=== PATIENT | female | born 1970 | race Caucasian/White ===

== ENCOUNTER 2022-02-17 07:27 | Inpatient (IN) ==
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
[~2022-02-17 07:27] MED LIST: ACETAMINOPHEN 500 MG TAB PO SCH; CeleBREX 200 MG CAP PO SCH; GABAPENTIN 900 MG DOSE PO SCH; LR 15ML/HR IV SCH; ceFAZolin 1000MG 1,000 MG/7.5 ML SYR IV SCH
[2022-02-17] MEDS ORDERED: MIDAZOLAM HCL 1 MG/ML 2ML VIAL ONE (08:48)
[2022-02-17] MEDS ORDERED: LIDOCAINE 2% MPF LOCAL 5 ML VIAL INFIL ONE (08:49)
[2022-02-17] MEDS ORDERED: ONDANSETRON INJ 2 MG/ML 2 ML VIAL ONE (08:49)
[2022-02-17] MEDS ORDERED: PROPOFOL IV EMULSION 10 MG/ML 20 ML VIAL IV ONE (08:49)
[2022-02-17] MEDS ORDERED: ROCURONIUM BROMIDE 10 MG/ML 5 ML VIAL IV ONE (08:49)
[2022-02-17] MEDS ORDERED: GLYCOPYRROLATE 0.2 MG/ML VIAL ONE (08:49)
[2022-02-17] MEDS ORDERED: fentaNYL citrate 100 MCG/2 ML VIAL ONE (08:49)
[2022-02-17] MEDS ORDERED: DEXAMETHASONE SOD INJ 4 MG/ML VIAL ONE (08:49)
[2022-02-17] MEDS ORDERED: NEOSTIGMINE METHYLSULFATE 1 MG/ML 10ML VIAL ONE (08:49)
--- NOTE | 2022-02-17 08:57 | History & Physical Bridge Note ---
Date of Service February 17, 2022 History & Physical Bridge Note I have examined the patient, reviewed the History & Physical and in the interval since the performance of the History & Physical I have noted the following changes of clinical significance: no changes noted
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
[2022-02-17] MEDS ORDERED: ceFAZolin 330 MG/ML 1 GM VIAL ONE (09:20)
[2022-02-17] MEDS ORDERED: BUPIVACAINE/EPINEPHRINE 0.25% 1:200,000 30 ML VIAL ONE (09:20)
[2022-02-17] MEDS ORDERED: PHENYLEPHRINE 100MCG/ML 5ML SYR IV PRN (09:28)
[2022-02-17] MEDS ORDERED: MEPERIDINE HCL 25 MG/ML CARP/VIAL IV PRN (09:28)
[2022-02-17] MEDS ORDERED: ONDANSETRON INJ 2 MG/ML 2 ML VIAL IV PRN ×2 (09:28→14:32)
[2022-02-17] MEDS ORDERED: ATROPINE SULFATE 0.1 MG/ML 10ML SYR IV PRN (09:28)
[2022-02-17] MEDS ORDERED: LABETALOL HCL IV 5 MG/ML 20ML IV PRN (09:28)
[2022-02-17] MEDS ORDERED: ePHEDrine sulfate 50 MG/ML AMP IV PRN (09:28)
[2022-02-17] MEDS ORDERED: PHENYLEPHRINE 100MCG/ML 5ML SYR ONE (09:59)
[2022-02-17] MEDS ORDERED: FLOSEAL HEMOSTATIC MATRIX 10ML TOP ONE (10:08)
--- NOTE | 2022-02-17 12:28 | Operative Report ---
Post Operative Report Pre & Post Diagnosis Operation Date: 02/17/22 09:35 Pre-Op Diagnosis: Spinal stenosis with grade 2 spondylolisthesis L5-S1 Post-Op Diagnosis: Same I identified the patient and participated in the time-out.: Yes Procedure Operation Date: 02/17/22 09:35 Actual Procedures #1 lumbar decompression bilateral medial facetectomies and foraminotomies L4-5 L5-S1. #2 posterior spinal fusion L4-L5 L5-S1. #3 placed posterior instrumentation L4-S1 using Rosa Creo rods and screws. #4 interbody fusion L4- L5 L5-S1. #5 placement of Spira 11 x 22 mm cage at L4-L5 and 8 x 22 mm cage at L5-S1. #6 placement locally harvested morselized autograft in the posterior gutters. #7 placement of I factor model V toss and interbody space and post erior lateral gutters. Surgeon Darien Acosta, DO [employer] Guillermo Leonard Estimated Blood Loss 100 Findings See Below The patient is 4 foot 5 inches tall weighing 62 kg with a BMI in excess of 34. The patient's body habitus did create significant technical difficulty required deeper retractors longer instruments in order to perform her procedure. This at least 50% increased operative time. Specimens None Indications This is a 51-year-old female presents with above-mentioned diagnosis after failed course of nonoperative care is here for the above-mentioned procedure. Description of Procedure Patient was met with identified informed consent obtained. Patient was then taken to the operative suite underwent a patient placed in a prone position the [place] table top Jose frame. All bony prominences well-padded eyes inspected to ensure no external pressure placed upon the. This point the lumbar spine was prepped and draped no sterile fashion. Sharp dissection with the assistance of Bovie cartilage from down to and exposing the lamina transverse processes of L4- 5 and the sacral ala bilaterally. Obvious bilateral pars defect identified. Complete laminectomy of L5 and L4 was performed including bilateral medial facetectomies and foraminotomies addressing all spinal stenosis and severe neural compression compression. Pedicle screws then placed at L4-L5 and S1 levels with the assistance of fluoroscopy and by way of a transfemoral approach and right complete discectomy of L5-S1 was performed endplates curetted to subcortical bleeding bone and 8 x 22 mm spiral cage filled I factor tapped in position. I then proceeded L4-L5 and again by way the transforaminal approach on the left complete discectomy performed endplates curetted to subcortical and bone and a 11 x 22 mm spiral cage with I factor tapped the position. The rods were then locked into final position bilaterally. The transverse processes of L for L5 and sacral ala burred to subcortically bone. I factor model V toss and locally harvested morselized autograft was placed in the posterior gutters. 15 round MARY drain inserted. The incision was then closed with 1 Vicryl the fascia 2-0 Vicryl subcutaneously and 4 Monocryl for final skin closure. Steri-Strips dressings placed. Patient will continue PACU stable condition. Please note spinal cord monitoring was utilized at the procedure no changes noted. Lastly Guillermo Leonard was present at the entire surgery and while the patient positioning complex portions of the surgery and fascial closure. I attest to the content of the Intraoperative Record and any orders documented therein. Any exceptions are noted below.
--- NOTE | 2022-02-17 12:36 | Fluoroscopy Report ---
INTRAOPERATIVE RADIOGRAPHS CLINICAL HISTORY: L4-S1 spinal fusion. Fluoroscopy time: 65 seconds. FINDINGS: 2 spot fluoroscopic views of the lumbar spine are presented. There has been discectomy at L 4-L5 and L5-S1 with laminectomy and posterior fusion at these levels. Interpedicular screws are in pl fabián. The orthopedic hardware appears intact. An intrauterine device projects over the pelvis. IMPRESSION: Intraoperative images from lumbar spinal fusion surgery as above. Electronically signed by: Mark Loredo M.D. 02/17/2022 12:35 PM
[2022-02-17] MEDS: fentaNYL citrate 100 MCG/2 ML VIAL IV PRN ×4 (12:56→13:11)
[2022-02-17] MEDS: HYDROmorphone INJ 1 MG/ML SYRINGE IV PRN ×9 (13:12→21:14)
[2022-02-17] MEDS ORDERED: HYDROmorphone INJ 1 MG/ML SYRINGE IV STA (13:37)
[2022-02-17] MEDS ORDERED: MEPERIDINE HCL 50 MG/ML CARP ONE (14:02)
--- NOTE | 2022-02-17 14:04 | Anesthesiology Progress Note ---
Date of Service February 17, 2022 Anesthesia Post Procedure Vital Signs Vital Signs: Temp Pulse Resp BP Pulse Ox O2 Del Method O2 Flow Rate 02/17/22 14:00 36.4 C L 94 H 16 96/67 L 98 Nasal Cannula 2 02/17/22 13:50 36.4 C L 92 H 16 89/68 L 96 Nasal Cannula 2 02/17/22 13:40 87 16 99/68 L 100 Nasal Cannula 2 02/17/22 13:30 99 H 16 98/78 L 98 Nasal Cannula 2 02/17/22 13:20 94 H 16 109/63 99 Oxymask 5 02/17/22 13:10 88 16 102/65 100 Oxymask 5 02/17/22 13:00 92 H 18 95/53 L 100 Oxymask 5 02/17/22 12:53 36.1 C L 87 18 100/67 100 Oxymask 5 02/17/22 08:25 36.5 C 108 H 18 144/108 H 93 Room Air Pain Intensity Lower Medial Back: Pain Intensity: 3 Transfer of Care Handoff Completed per policy Notes Mental Status: alert / awake / arousable Patient Amnestic to Procedure: Yes Nausea / Vomiting: adequately controlled Pain: adequately controlled Airway Patency, RR, SpO2: stable & adequate BP & HR: stable & adequate Hydration State: stable & adequate Anesthetic Complications: no major complications apparent and Pt Satisfied with anesthetic care
[2022-02-17] MEDS ORDERED: MEPERIDINE HCL 50 MG/ML CARP IV ONE (14:15)
[2022-02-17] MEDS ORDERED: ACETAMINOPHEN 1,000 MG/100 ML VIAL IV PRN (14:32)
[2022-02-17] MEDS ORDERED: METOCLOPRAMIDE HCL INJ 5 MG/ML 2 ML VIAL IV PRN (14:32)
[2022-02-17] MEDS ORDERED: NALOXONE HCL 0.4 MG/1 ML VIAL/CARP IV PRN (14:32)
[2022-02-17] MEDS ORDERED: bisacodyL 10 MG SUPP PR PRN (14:32)
[2022-02-17] MEDS ORDERED: hydrOXYzine HCl 25 MG TAB PO PRN (14:32)
[2022-02-17] MEDS ORDERED: SOD PHOSPHATE/SOD BIPHOSPHATE ENEMA 132 ML BTL PR PRN (14:32)
[2022-02-17] MEDS ORDERED: LORazepam 0.5 MG TAB PO PRN (14:32)
[2022-02-17] MEDS ORDERED: MAGNESIUM HYDROXIDE SUSP 30 ML UDC PO PRN (14:32)
[2022-02-17] MEDS ORDERED: CETIRIZINE HCL 10 MG TABLET PO PRN (14:32)
[2022-02-17] MEDS ORDERED: LORazepam 0.5 MG in SYRINGE 0 ML IV PRN (14:32)
[2022-02-17] MEDS ORDERED: diphenhydrAMINE Capsule 25 MG CAP PO PRN (14:32)
[2022-02-17] MEDS ORDERED: PROMETHAZINE HCL 12.5 MG in SODIUM CHLORIDE 0.9% 50 ML IV PRN (14:32)
[2022-02-17] MEDS ORDERED: ALUMINUM/MAGNESIUM SUSP 30 ML UDC PO PRN (14:32)
[2022-02-17] MEDS ORDERED: HYDROmorphone INJ 0.5 MG/0.5 ML SYR IV PRN (14:32)
[2022-02-17] MEDS ORDERED: FAMOTIDINE 20 MG TAB PO PRN (14:32)
[2022-02-17] MEDS: LACTATED RINGER'S 1,000 ML IV SCH ×2 (15:08→21:13)
[2022-02-17] MEDS ORDERED: FLUTICASONE PROPIONATE NA SPR 16 GM BTL PRN (15:19)
[2022-02-17] MEDS: PREGABALIN 75 MG CAP PO SCH ×2 (15:41→21:13)
[2022-02-17] MEDS: fentaNYL 12 MCG/HR TDSY TD SCH (15:41)
[2022-02-17] MEDS: CHECK fentaNYL PATCH PLACEMENT SCH (17:02)
[2022-02-17] MEDS: oxyCODONE HCL IR 5 MG TAB (IMMEDIATE RELEASE) PO PRN (17:08)
[2022-02-17] MEDS: ceFAZolin 1000MG 1,000 MG/7.5 ML SYR IV SCH (18:06)
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
[2022-02-17] MEDS: DOCUSATE SODIUM/SENNA 50/8.6MG TAB PO SCH (21:13)
[2022-02-17] MEDS: LORazepam 1 MG TAB PO SCH (21:13)
[2022-02-18] MEDS: CHECK fentaNYL PATCH PLACEMENT SCH ×3 (01:01→15:41)
[2022-02-18] MEDS: ceFAZolin 1000MG 1,000 MG/7.5 ML SYR IV SCH (02:02)
[2022-02-18] MEDS: POLYETHYLENE (MIRALAX) 17 GM PACK PO SCH ×2 (05:42→11:34)
[2022-02-18] MEDS: dexAMETHasone 6 MG in SYRINGE 0 ML IV SCH (07:51)
[2022-02-18] MEDS: PREGABALIN 75 MG CAP PO SCH ×3 (07:51→20:37)
[2022-02-18] MEDS: ESCITALOPRAM OXALATE 20 MG TAB PO SCH (07:51)
[2022-02-18] MEDS: LEVOTHYROXINE SODIUM 50 MCG TABLET PO SCH (07:51)
[2022-02-18] MEDS: LORazepam 1 MG TAB PO SCH ×2 (07:51→20:37)
[2022-02-18] MEDS: buPROPion XL 150 MG TABCR PO SCH (07:51)
[2022-02-18] MEDS: buPROPion XL 300 MG TABCR PO SCH (07:51)
[2022-02-18 07:58] LABS: Basophils # (auto) 0.05 K/uL (0-0.2); Basophils % (auto) 0.3 %; Eosinophils # (auto) 0.05 K/uL (0-0.50); Eosinophils % (auto) 0.3 %; Hematocrit (blood only) 33.2 % (34.1-44.9); Hemoglobin 11.3 g/dl (12.0-16.0); Immature Granulocytes # (auto) 0.11 K/uL (0.00-0.02); Immature Granulocytes % (auto) 0.6 %; Lymphocytes # (auto) 1.59 K/uL (1.2-3.4); Lymphocytes % (auto) 8.6 %; Mean Corpuscular Volume 88.1 fL (80.0-100.0); Mean Platelet Volume 9.9 fL (9.4-12.3); Monocytes # (auto) 1.41 K/uL (0.24-0.82); Monocytes % (auto) 7.6 %; Neutrophils # (auto) 15.29 K/uL (1.4-6.5); Neutrophils % (auto) 82.6 %; Platelet Count 295 K/uL (130-400); RDW Coefficient of Variation 14.5 % (11.5-14.5); RDW Standard Deviation 46.6 fL (36.4-46.3); Red Blood Count 3.77 M/uL (3.93-5.22)
[2022-02-18 08:35] LABS: BUN Creatinine Ratio 8.4 (10-20); Creatinine Clr Calc Pharmacy 48.2 ml/min; Est GFR (African American) 81.5 ml/min; Est GFR (Non-African American) 70.3 ml/min; Magnesium 1.7 mg/dl (1.7-2.4); Potassium 3.4 mmol/L (3.5-5.1)
[2022-02-18] MEDS ORDERED: POTASSIUM CHLORIDE CRTAB 20 MEQ TABCR PO STA (10:05)
--- NOTE | 2022-02-18 10:20 | Orthopedic Progress Note ---
Date of Service February 18, 2022 Assessment & Plan (1) Neurogenic claudication due to lumbar spinal stenosis: Plan: This Is a physical therapy monitor MARY operatively discharge home on Sunday. Admission and Anticipated Discharge Date Admission Date: February 17, 2022 Subjective Back pain controlled leg symptoms markedly improved Physical Exam Physical Exam: Patient is in bed. He is comfortable. Is constricted testing. Results & Data ([facility]) Vital Signs (Past 12 Hours) Vital Signs Temp Pulse Resp BP Pulse Ox O2 Del Method 02/18/22 07:42 37.0 C 122 H 18 136/93 95 Room Air 02/18/22 04:00 36.8 C 105 H 20 143/77 H 95 Room Air 02/17/22 22:26 37.2 C 97 H 18 118/64 90 Room Air
[2022-02-18] MEDS: LACTATED RINGER'S 1,000 ML IV SCH (10:30)
[2022-02-18] MEDS: HYDROmorphone INJ 1 MG/ML SYRINGE IV PRN (15:41)
--- NOTE | 2022-02-18 17:39 | Hospitalist Progress Note ---
Date of Service February 18, 2022 Assessment & Plan (1) Neurogenic claudication due to lumbar spinal stenosis: Plan Neurogenic claudication due to lumbar spinal stenosis S/p Lumbar L4-L5, L5-S1 decompression and fusion on 02/17/22 Patient reports improvement in her radicular symptoms. Pt reports better pain control, appears comfortable. PT/OT, DVT Px and Pain Mx per orthospine. Encourage incentive spirometer. Labs in AM. Monitor for bowel movement. Acute blood loss anemia likely postoperative: Hemoglobin 14.3 preoperatively, down to 11.3 postoperatively. We will continue to monitor. Patient with no chest pain or dizziness. Leukocytosis: Procalcitonin negative, likely secondary to steroid use perioperatively on the background of acute distress of surgery. Tachycardia: Likely secondary to acute stress, will continue to monitor, expect to improve with time. Other chronic conditions: depression, anxiety, hypothyroidism --> continued w/ home meds as and when able. DVT PX: SCDs now, per primary. Full Code. Admission and Anticipated Discharge Date Admission Date: February 17, 2022 Subjective Patient seen and examined at bedside as a follow-up of status post lumbar decompression and fusion on 02/17/2022 for medical management. Patient was lying in bed, by the bedside, on room air, NAD, reports improving pain and pain under control, reports eating okay, has not moved bowel, is moving gas, denies any new acute event overnight, denies any headache or dizziness or chest pain or palpitation or other review of symptoms. Physical Exam Physical Exam: GENERAL: Alert and oriented x3. NAD, on RA. HEENT: No pallor, no icterus. Pupils equal, round and reactive to light. Oral mucosa moist. NECK: No JVD, no neck masses. HEART: S1 and S2 heard. Regular rate and rhythm. No murmur, no gallop. RESPIRATORY SYSTEM: Normal AP diameter. No accessory muscle use. No wheezing, no crackles. ABDOMEN: Soft, bowel sounds present, nontender, no distention. CENTRAL NERVOUS SYSTEM: No facial droop. Speech is clear. Obeys simple commands. Moves extremities. EXTREMITIES: No edema, no erythema seen. Low back w/ clean dressing w/o soakage. MARY drain with Serosanguineous collection noted. Results & Data Results & Data ([facility]) Vital Signs (Past 12 Hours) Vital Signs Temp Pulse Resp BP Pulse Ox O2 Del Method 02/18/22 16:06 37.1 C 115 H 18 137/92 92 Room Air 02/18/22 07:42 37.0 C 122 H 18 136/93 95 Room Air
[2022-02-18] MEDS: DOCUSATE SODIUM/SENNA 50/8.6MG TAB PO SCH (20:37)
[2022-02-19] MEDS: LACTATED RINGER'S 1,000 ML IV SCH (00:47)
[2022-02-19] MEDS: oxyCODONE HCL IR 5 MG TAB (IMMEDIATE RELEASE) PO PRN (03:57)
[2022-02-19 07:16] LABS: Hematocrit (blood only) 33.5 % (34.1-44.9); Hemoglobin 11.4 g/dl (12.0-16.0); Mean Corpuscular Hemoglobin 29.6 pg (25.0-34.0); Mean Platelet Volume 9.9 fL (9.4-12.3); Platelet Count 275 K/uL (130-400); RDW Coefficient of Variation 14.5 % (11.5-14.5); RDW Standard Deviation 45.9 fL (36.4-46.3); Red Blood Count 3.85 M/uL (3.93-5.22); White Blood Count 19.01 K/ul (4.8-10.8)
[2022-02-19] MEDS: PREGABALIN 75 MG CAP PO SCH ×3 (07:50→19:18)
[2022-02-19] MEDS: CHECK fentaNYL PATCH PLACEMENT SCH ×4 (07:50→22:15)
[2022-02-19] MEDS: dexAMETHasone 6 MG in SYRINGE 0 ML IV SCH (07:50)
[2022-02-19] MEDS: buPROPion XL 300 MG TABCR PO SCH (07:50)
[2022-02-19] MEDS: buPROPion XL 150 MG TABCR PO SCH (07:50)
[2022-02-19] MEDS: LEVOTHYROXINE SODIUM 50 MCG TABLET PO SCH (07:50)
[2022-02-19] MEDS: ESCITALOPRAM OXALATE 20 MG TAB PO SCH (07:50)
[2022-02-19] MEDS: LORazepam 1 MG TAB PO SCH ×2 (07:54→19:19)
[2022-02-19 07:59] LABS: BUN Creatinine Ratio 9.4 (10-20); Calcium 8.4 mg/dl (8.5-10.1); Creatinine Clr Calc Pharmacy 71.6 ml/min; Est GFR (African American) 121.4 ml/min; Est GFR (Non-African American) 104.8 ml/min; Magnesium 1.7 mg/dl (1.7-2.4); Phosphorus 2.3 mg/dl (2.5-4.9); Potassium 3.4 mmol/L (3.5-5.1)
--- NOTE | 2022-02-19 08:39 | Orthopedic Progress Note ---
Date of Service February 19, 2022 Assessment & Plan (1) Neurogenic claudication due to lumbar spinal stenosis: Plan: Bettina is postoperative 2 status post lumbar decompression fusion L4-S1. She is doing well. We will continue physical therapy. DVT prophylaxis is in the form of teds and SCDs.. Continue with bowel regimen. We will consult geriatric social worker. She currently lives alone. Possible discharge tomorrow. Admission and Anticipated Discharge Date Admission Date: February 17, 2022 Subjective Bettina is postoperative day 2 status post L4-S1 decompression and instrumented fusion. She is doing well. Radicular leg pain has resolved. Back pain is controlled. She had a bowel movement. MARY drain output last shift was 85 cc. This morning's H&H are 11.4 and 33.5 respectively. Yesterday in physical therapy ambulating roughly 25 feet. Review of Systems Review of Systems: All systems reviewed & are unremarkable except as noted in HPI & below Physical Exam Physical Exam: Alert and oriented x3 Lying in bed in no acute distress Lumbar dressing is clean dry intact with functioning MARY drain Calf soft nontender bilaterally Strength intact bilateral lower extremities Results & Data ([facility]) Vital Signs (Past 12 Hours) Vital Signs Temp Pulse Resp BP Pulse Ox O2 Del Method 02/19/22 07:15 37.0 C 125 H 16 115/59 L 95 Room Air 02/18/22 22:00 36.5 C 122 H 20 146/91 H 99 Room Air
[2022-02-19 16:15] LABS: Anion Gap 9.4 (3-11)
--- NOTE | 2022-02-19 16:45 | Hospitalist Progress Note ---
Date of Service February 19, 2022 Assessment & Plan (1) Neurogenic claudication due to lumbar spinal stenosis: Plan Neurogenic claudication due to lumbar spinal stenosis S/p Lumbar L4-L5, L5-S1 decompression and fusion on 02/17/22 Patient reports improvement in her radicular symptoms. Pt reports better pain control, appears comfortable. PT/OT, DVT Px and Pain Mx per orthospine. Encourage incentive spirometer. Labs in AM. Monitor for bowel movement. Acute blood loss anemia likely postoperative: Hemoglobin 14.3 preoperatively, down to 11.3 postoperatively. We will continue to monitor. Patient with no chest pain or dizziness. Leukocytosis: Procalcitonin negative, likely secondary to steroid use perioperatively on the background of acute distress of surgery. Tachycardia: Likely secondary to acute stress, will continue to monitor, expect to improve with time. Sinus tachycardia: Patient reports having intermittent tachycardia most likely associated with her anxiety, patient is on lorazepam twice a day at home. Patient reports she has been worked out as an outpatient and has not been started on any medication. Current triggering of her tachycardia could be due to her acute stress of surgery. Other chronic conditions: depression, anxiety, hypothyroidism --> continued w/ home meds as and when able. DVT PX: SCDs now, per primary. Full Code. Admission and Anticipated Discharge Date Admission Date: February 17, 2022 Subjective Patient seen and examined at bedside as a follow-up of status post lumbar decompression and fusion on 02/17/2022 for medical management. Patient was lying in bed, by the bedside, on room air, NAD, reports improving pain and pain under control, reports eating okay, moving bowels ok, denies any new acute event overnight, denies any headache or dizziness or chest pain or palpitation or other review of symptoms. Physical Exam Physical Exam: GENERAL: Alert and oriented x3. NAD, on RA. HEENT: No pallor, no icterus. Pupils equal, round and reactive to light. Oral mucosa moist. NECK: No JVD, no neck masses. HEART: S1 and S2 heard. Regular rate and rhythm. No murmur, no gallop. RESPIRATORY SYSTEM: Normal AP diameter. No accessory muscle use. No wheezing, no crackles. ABDOMEN: Soft, bowel sounds present, nontender, no distention. CENTRAL NERVOUS SYSTEM: No facial droop. Speech is clear. Obeys simple commands. Moves extremities. EXTREMITIES: No edema, no erythema seen. Low back w/ clean dressing w/o soakage. MARY drain with Serosanguineous collection noted. Results & Data Results & Data ([facility]) Vital Signs (Past 12 Hours) Vital Signs Temp Pulse Resp BP Pulse Ox O2 Del Method 02/19/22 15:30 37.0 C 128 H 18 136/86 96 Room Air 02/19/22 07:15 37.0 C 125 H 16 115/59 L 95 Room Air
[2022-02-19] MEDS: DOCUSATE SODIUM/SENNA 50/8.6MG TAB PO SCH (19:18)
[2022-02-19] MEDS: ACETAMINOPHEN 500 MG TAB PO PRN (19:19)
[2022-02-20] MEDS: ACETAMINOPHEN 500 MG TAB PO PRN ×2 (02:33→13:52)
--- NOTE | 2022-02-20 05:52 | Electrocardiogram Report ---
Test Reason : Blood Pressure : / mmHG Vent. Rate : 122 BPM Atrial Rate : 122 BPM P-R Int : 122 ms QRS Dur : 064 ms QT Int : 282 ms P-R-T Axes : 052 056 -57 degrees QTc Int : 401 ms Sinus tachycardia Nonspecific ST and T wave abnormality Abnormal ECG When compared with ECG of 12-JAN-2022 12:55, No significant change was found Confirmed by Tj Krishna ([id number]) on 02/20/2022 5:51:56 AM Referred By: Darien Acosta Confirmed By:Tj Krishna
[2022-02-20] MEDS: buPROPion XL 300 MG TABCR PO SCH (08:43)
[2022-02-20] MEDS: buPROPion XL 150 MG TABCR PO SCH (08:44)
[2022-02-20] MEDS: ESCITALOPRAM OXALATE 20 MG TAB PO SCH (08:44)
[2022-02-20] MEDS: LEVOTHYROXINE SODIUM 50 MCG TABLET PO SCH (08:44)
[2022-02-20] MEDS: dexAMETHasone 6 MG in SYRINGE 0 ML IV SCH (08:45)
[2022-02-20 08:46] LABS: BUN Creatinine Ratio 13.2 (10-20); Calcium 9.1 mg/dl (8.5-10.1); Creatinine Clr Calc Pharmacy 67.4 ml/min; Est GFR (Non-African American) 102.7 ml/min; Potassium 3.6 mmol/L (3.5-5.1)
[2022-02-20] MEDS: PREGABALIN 75 MG CAP PO SCH ×3 (08:48→20:43)
[2022-02-20] MEDS: LORazepam 1 MG TAB PO SCH ×2 (08:51→20:43)
[2022-02-20] MEDS: CHECK fentaNYL PATCH PLACEMENT SCH ×2 (09:20→17:00)
--- NOTE | 2022-02-20 10:19 | Discharge Summary ---
Date of Service February 20, 2022 Admission HPI Per Admitting Provider This is a 51-year-old female who presents with current persistent back and bilateral leg pain interventions postoperative care she is here for surgical invention. Principal Diagnosis Lumbar spinal stenosis with neurogenic claudication Discharge Data Allergies Allergy/AdvReac Type Severity Reaction Status Date / Time No Known Allergies Allergy Verified 02/17/22 08:03 Consultations 02/17/22 14:32 Consult Hospitalist Routine Procedures Performed Operation Date: 02/17/22 09:35 Actual Procedures p L4-S1 Decompression and Fusion, Spinal Cord Monitoring(Not Applicable) - Darien Acosta DO Ordered Studies 02/17/22 09:35 [place] lumbar spine 2-3V Routine Hospital Course (1) Neurogenic claudication due to lumbar spinal stenosis: Patient 1 lumbar decompression fusion tolerated this well was taken to ortho pedic for postoperative. Postop day 1 she was up and ambulating progressed to postop day #2. Postop day #3 pain was well controlled. Excellent strength testing. Pain improved. MARY drain decreased probably. Socially discharged home. Discharge orders instructions from the chart for further review. Total Time Total Time Spent Total Time Spent (In Minutes): 20 minutes Discharge Plan Discharge Items Patient Disposition: Home - Self-Care Reason For Visit: Spinal Stenosis, Lumbar Region without Neurogenic Discharge Diagnosis: Lumbar spinal stenosis with neurogenic claudication and spondylolisthesis Activity: As commented below Non-emergency contact: Primary Care Provider Call non-emergency contact if: you have any medication questions Follow-up/Referrals: Carlos Peralta M.D. [Primary Care Provider] - Diet: Regular Addtl Attending Provider Instructions: ACTIVITY RECOMMENDATIONS: SELF CARE INSTRUCTIONS AFTER THORACIC/LUMBAR FUSIONS 1. You may walk to your tolerance. It is good exercise for your legs and back. Expect some back and intermittent leg aches and pains. 2. You may perform "counter-top" level activities (make a sandwich, alexsander with a project, etc.). 3. No bending or lifting of more than 10 pounds or back twisting of any nature (roll like a log when turning in bed). 4. You may ride in a car for 20-30 minutes at a time. No driving until after your first visit with your doctor. 5. Frequent changes of position and restricting sitting to 30 minutes at a time will help limit the amount of back spasms and stiffness you may experience. 6. You may discontinue the use of ambulatory aids (cane, crutches, etc.) once your strength and confidence allow. 7. You may skein yarn dyer the shower and let water strike your incision when you arrive home at least once daily. Do not take a tub bath, sit in a hot tub or go into a swimming pool until after your first recheck in the office. SPECIAL CARE INSTRUCTIONS: VERY IMPORTANT TO READ AND REVIEW A. Your surgical incision has been closed with a cosmetic suture under the skin that will dissolve in about 6 weeks. In 14 days, you can use a pair of clean scissors and cut the suture that is left outside of the skin at the ends of your incision. 1. The small skin tapes can be removed 7 days after surgery if they have not fallen off by that point. 2. You may keep the wound open to air as much as possible to promote healing after post-op day number 5 unless told otherwise by your doctor. 3. If you think the wound looks like it is becoming infected (redness or worsening drainage) and/or you are experiencing fever, chill or worsening back pain and muscle spasms, contact the office so that we may evaluate you as soon as possible. B. Complications are uncommon, but please contact us if you have any signs or symptoms of: 1. wound infection (fever higher than 102.5 degrees F, redness, separation of wound, drainage, or increasing pain from the incision) 2. blood clots in legs (pain, swelling, redness and warmth in legs) 3. urinary tract infection (fever higher than 102.5 degrees F, burning upon urination or increased frequency of urination) 4. nerve problems (inability to walk on your toes or heels, numbness, loss of bowel or bladder control) 5. any other symptoms that concern you C. Please call the office at if you have any concerns or questions about your operation or recovery. D. No smoking! Smoking drastically decreases the chance of a solid fusion. E. Do not take any anti-inflammatory medications (Indocin, Advil, Motrin, Aspirin, Naprosyn, etc.) as these may inhibit the chance of a solid fusion. Tylenol is okay to take for pain. MANAGING PAIN AFTER SPINAL SURGERY 1. Narcotic medication is intended for short-term use and will be provided for surgical pain. Surgical pain usually lasts for a period of 4-6 weeks. Narcotic medication includes Percocet, Vicodin, Darvocet, Tylenol #3 or Lortab. 2. Longer-term pain is more appropriately treated with non-narcotic medication such as Tylenol ES. 3. Muscle spasm is not appropriately treated with narcotics. Muscle relaxers such as Soma, Flexeril or Skelaxin can be used along with Tylenol ES. 4. Remember that we all live with some "aches and pains". This is not unusual or uncommon after an injury or as we get older. a. Back pain is expected and may include muscle spasms for 4 to 6 weeks after surgery. The pain should gradually improve. If the pain worsens for no apparent reason, please contact the office. b. Intermittent leg pain may also be experienced and should not be concerned about unless it worsens for no apparent reason. If so, please contact the office. 5. We will provide appropriate medication within the normal guidelines of their prescribed use. We will also be very cautious and aware of potential abuse and extended duration of patients' medication needs. a. Pain medications are for your comfort and to assist with sleep and rest so that the tissue can heal. They are not provided in order to return to normal activity and should not be used through the day. To do so or worsening pain at night can result from ongoing tissue damage and development of tolerance to the prescribed medicine. 6. Please allow 2-3 days to process refills. Prescriptions will not be mailed but must be picked up at the office. FOLLOW UP VISIT: Keep your scheduled follow-up appointment. Any questions, please call the office at . Pending Studies at Discharge: No Stand-Alone Forms: [facility] [place], Smoking Cessation Medications and DC Order Prescriptions: New tramadol 50 mg tablet 50 mg PO Q6H PRN (Reason: pain, moderate) Qty: 30 0RF oxycodone 5 mg tablet 5 mg PO Q6H PRN (Reason: pain, severe) Qty: 30 0RF Continued levothyroxine [Synthroid] 50 mcg Tablet 50 mcg PO QAM lorazepam 1 mg Tablet 1 mg PO BID escitalopram oxalate [Lexapro] 20 mg Tablet 20 mg PO QAM bupropion HCl [Wellbutrin XL] 300 mg Tablet Extended Release 24 Hr 300 mg PO QAM bupropion HCl [Wellbutrin XL] 150 mg Tablet Extended Release 24 Hr 150 mg PO QAM fentanyl 12 mcg/hr Patch 72 Hour 1 patch TRANSDERMAL Q72H pregabalin 75 mg Capsule 75 mg PO TID Savella 50 mg Tablet 50 mg PO BID tramadol 100 mg Tablet 50 mg PO Q6H PRN (Reason: Pain) cetirizine [Zyrtec] 10 mg Tablet 10 mg PO DAILY PRN (Reason: Congestion) fluticasone propionate 50 mcg/actuation [place],Suspension 1 spray INTRANASAL BID PRN (Reason: Congestion) Rx Instructions: administer into each nostril rizatriptan 10 mg Tablet,Disintegrating 10 mg PO DIRECTED Aimovig Autoinjector 70 mg/mL Auto-Injector 70 mg SUBCUT DIRECTED Mirena 20 mcg/24 hours (7 yrs) 52 mg Intrauterine Device 20 mcg INTRAUTERINE DIRECTED Discharge Orders: Discharge Order (Routine); Ordered 02/20/22 Ordered By: Darien Acosta Admission Data Admit Date/Time: 02/17/22 12:32 Attending Provider: Darien Acosta Admit Provider: Darien Acosta Primary Care Provider: Carlos Peralta Other Providers: Shreya Silverio ; Gisela Dunaway
[2022-02-20] MEDS ORDERED: LEVONORGESTREL (MIRENA) IUD PV SCH (14:15)
[2022-02-20] MEDS ORDERED: RIZATRIPTAN BENZOATE MLT 10 MG TAB PO PRN (14:15)
[2022-02-20] MEDS: traMADol HCL 50 MG TABLET PO PRN (14:42)
[2022-02-20] MEDS: fentaNYL 12 MCG/HR TDSY TD SCH (15:24)
--- NOTE | 2022-02-20 17:51 | Hospitalist Progress Note ---
Date of Service February 20, 2022 Assessment & Plan (1) Neurogenic claudication due to lumbar spinal stenosis: Plan Neurogenic claudication due to lumbar spinal stenosis S/p Lumbar L4-L5, L5-S1 decompression and fusion on 02/17/22 Likely postoperative delirium: calm and cooperative, but with hallucination. likely complicated by steroid use and other meds. delirium precautions, ensure good night sleep. Patient reports improvement in her radicular symptoms. Pt reports better pain control, appears comfortable. PT/OT, DVT Px and Pain Mx per orthospine. Encourage incentive spirometer. Labs in AM. Monitor for bowel movement. Acute blood loss anemia likely postoperative: Hemoglobin 14.3 preoperatively, down to 11.3 postoperatively. We will continue to monitor. Patient with no chest pain or dizziness. Leukocytosis: Procalcitonin negative, likely secondary to steroid use perioperatively on the background of acute distress of surgery. Sinus tachycardia: Patient reports having intermittent tachycardia most likely associated with her anxiety, patient is on lorazepam twice a day at home. Patient reports she has been worked out as an outpatient and has not been started on any medication, she has had this sinus tachy for long time. Current triggering of her tachycardia could be due to her acute stress of surgery. Other chronic conditions: depression, anxiety, hypothyroidism --> continued w/ home meds as and when able. DVT PX: SCDs now, per primary. Full Code. Dispo: if patient is still delirious, might be better to observe her in the hospital. Make sure patient gets good night sleep. Admission and Anticipated Discharge Date Admission Date: February 17, 2022 Subjective Patient seen and examined at bedside as a follow-up of status post lumbar decompression and fusion on 02/17/2022 for medical management. Patient was lying in bed, was having hallucinations, calm and cooperative, on room air, NAD, reports improving pain and pain under control, reports eating okay, moving bowels ok, ROS in detail not feasible due to patient drifting away from conversation. Pt seen again later in the afternoon with improvement in her mentation, was oriented x2, by bedside, calm and cooperative. Physical Exam Physical Exam: GENERAL: Alert and awake. NAD, on RA. HEENT: No pallor, no icterus. Pupils equal, round and reactive to light. Oral mucosa moist. NECK: No JVD, no neck masses. HEART: S1 and S2 heard. Regular rate and rhythm. No murmur, no gallop. RESPIRATORY SYSTEM: Normal AP diameter. No accessory muscle use. No wheezing, no crackles. ABDOMEN: Soft, bowel sounds present, nontender, no distention. CENTRAL NERVOUS SYSTEM: No facial droop. Speech is clear. Obeys simple commands. Moves extremities. EXTREMITIES: No edema, no erythema seen. Low back w/ clean dressing w/o soakage. Results & Data Results & Data ([facility]) Vital Signs (Past 12 Hours) Vital Signs Temp Pulse Resp BP Pulse Ox O2 Del Method 02/20/22 15:23 37.4 C 121 H 16 129/88 97 Room Air 02/20/22 07:19 37.0 C 116 H 16 139/88 95 Room Air
[2022-02-20] MEDS: DOCUSATE SODIUM/SENNA 50/8.6MG TAB PO SCH (20:44)
[2022-02-20] MEDS: MELATONIN 3 MG TAB PO SCH (20:44)
[2022-02-21] MEDS: CHECK fentaNYL PATCH PLACEMENT SCH ×3 (00:20→16:52)
[2022-02-21] MEDS: oxyCODONE HCL IR 5 MG TAB (IMMEDIATE RELEASE) PO PRN ×2 (00:23→19:54)
[2022-02-21] MEDS: HYDROmorphone INJ 1 MG/ML SYRINGE IV PRN (02:15)
--- NOTE | 2022-02-21 08:11 | Orthopedic Progress Note ---
Date of Service February 21, 2022 Assessment & Plan (1) Neurogenic claudication due to lumbar spinal stenosis: Plan: At this time I am comfortable with her going home when she is cleared by medicine. Admission and Anticipated Discharge Date Admission Date: February 17, 2022 Subjective Patient is comfortable this morning. She denies any hallucinations. Physical Exam Physical Exam: On exam she appears to be alert and oriented. She is neurologically intact. Results & Data ([facility]) Vital Signs (Past 12 Hours) Vital Signs Temp Pulse Resp BP Pulse Ox O2 Del Method 02/21/22 07:22 36.9 C 104 H 18 111/75 94 Room Air 02/20/22 21:28 36.9 C 124 H 18 145/105 H 96 Room Air
[2022-02-21] MEDS: LEVOTHYROXINE SODIUM 50 MCG TABLET PO SCH (08:43)
[2022-02-21] MEDS: PREGABALIN 75 MG CAP PO SCH ×3 (08:43→19:56)
[2022-02-21] MEDS: LORazepam 1 MG TAB PO SCH (08:43)
[2022-02-21] MEDS: ESCITALOPRAM OXALATE 20 MG TAB PO SCH (08:43)
[2022-02-21] MEDS: buPROPion XL 150 MG TABCR PO SCH (08:43)
[2022-02-21] MEDS: buPROPion XL 300 MG TABCR PO SCH (08:43)
--- NOTE | 2022-02-21 16:47 | Hospitalist Progress Note ---
Date of Service February 21, 2022 Assessment & Plan (1) Neurogenic claudication due to lumbar spinal stenosis: Plan Neurogenic claudication due to lumbar spinal stenosis S/p Lumbar L4-L5, L5-S1 decompression and fusion on 02/17/22 Likely postoperative delirium: calm and cooperative, but with hallucination. likely complicated by steroid use and other meds. delirium precautions, ensure good night sleep. Patient reports improvement in her radicular symptoms. Pt reports better pain control, appears comfortable. PT/OT, DVT Px and Pain Mx per orthospine. Encourage incentive spirometer. Labs in AM. Monitor for bowel movement. Acute blood loss anemia likely postoperative: Hemoglobin 14.3 preoperatively, down to 11.3 postoperatively. We will continue to monitor. Patient with no chest pain or dizziness. Leukocytosis: Procalcitonin negative, likely secondary to steroid use perioperatively on the background of acute distress of surgery. Hallucinations: Pt w/ hallucinations since yesterday morning, on and off, likely post op delirium complicated by psychiatric/meds/post op status/hospitalization. d/w psychiatry in am, no improvement, psychiatry consulted. Delirium precautions, melatonin in the night. Holding benzos. Pt apparently receiving less pain meds than at home. Sinus tachycardia: Patient reports having intermittent tachycardia most likely associated with her anxiety, patient is on lorazepam twice a day at home. Patient reports she has been worked out as an outpatient and has not been started on any medication, she has had this sinus tachy for long time. Current triggering of her tachycardia could be due to her acute stress of surgery. Other chronic conditions: depression, anxiety, hypothyroidism --> continued w/ home meds as and when able. DVT PX: SCDs now, per primary. Full Code. Dispo: pending improvement in hallucinations, psychiatry consulted. Admission and Anticipated Discharge Date Admission Date: February 17, 2022 Subjective Patient seen and examined at bedside as a follow-up of status post lumbar decompression and fusion on 02/17/2022 for medical management. Patient was lying in bed, somewhat confused in the morning, Ox2, calm and cooperative, but again with hallucinations during the evaluation in the day "mom is right there" when she was not, acting confused, on room air, NAD, In the morning patient reported improving pain and pain under control, reports eating okay, moving bowels ok, denies fever, headache, dizziness. D/w psychiatry earlier in the day, if with improvement in her mentation, can safely dc home, but patient w/ ongoing hallucinations on and off and hence finally psychiatry consulted after afternoon eval. Physical Exam Physical Exam: GENERAL: Alert and awake. NAD, on RA. Hallucinations + HEENT: No pallor, no icterus. Pupils equal, round and reactive to light. Oral mucosa moist. NECK: No JVD, no neck masses. HEART: S1 and S2 heard. Regular rate and rhythm. No murmur, no gallop. RESPIRATORY SYSTEM: Normal AP diameter. No accessory muscle use. No wheezing, no crackles. ABDOMEN: Soft, bowel sounds present, nontender, no distention. CENTRAL NERVOUS SYSTEM: No facial droop. Speech is clear. Obeys simple commands. Moves extremities. EXTREMITIES: No edema, no erythema seen. Low back w/ clean dressing w/o soakage. Results & Data Results & Data ([facility]) Vital Signs (Past 12 Hours) Vital Signs Temp Pulse Resp BP Pulse Ox O2 Del Method 02/21/22 16:22 36.6 C 117 H 18 138/92 98 Room Air 02/21/22 07:22 36.9 C 104 H 18 111/75 94 Room Air
--- NOTE | 2022-02-21 17:00 | Communication Note ---
Date of Service: February 21, 2022 consult received, case discussed with Dr. Dunaway earlier in the day. Patient with postop delirium, likely multifactorial. Is calm and cooperative but some confusion and intermittent leon. Liaison to assess. Would avoid Haldol unless agitated given significant polypharmacy. Pain meds have reportedly already been decreased. Patient is no longer on steroids. She has hx of tramadol with antidepressants which may increase risk of mild serotonin syndrome after anesthesia. Wellbutrin dose is rather high and is dopaminergic so will hold until leon resolve. Hold Lexapro to limit polypharm as always difficult to exclude mild serotonin syndrome when tachy.
[2022-02-21] MEDS: DOCUSATE SODIUM/SENNA 50/8.6MG TAB PO SCH (19:55)
[2022-02-21] MEDS: MELATONIN 3 MG TAB PO SCH (19:56)
[2022-02-22] MEDS: CHECK fentaNYL PATCH PLACEMENT SCH ×3 (00:01→16:19)
[2022-02-22] MEDS: oxyCODONE HCL IR 5 MG TAB (IMMEDIATE RELEASE) PO PRN (01:21)
[2022-02-22] MEDS: ACETAMINOPHEN 500 MG TAB PO PRN (06:47)
[2022-02-22] MEDS: PREGABALIN 75 MG CAP PO SCH ×3 (08:02→21:11)
[2022-02-22] MEDS: LEVOTHYROXINE SODIUM 50 MCG TABLET PO SCH (08:02)
--- NOTE | 2022-02-22 10:19 | Orthopedic Progress Note ---
Date of Service February 22, 2022 Assessment & Plan (1) Neurogenic claudication due to lumbar spinal stenosis: Plan: Stable continue to observe her progress. Hopefully she will be able to discharge once her medication is sorted. Admission and Anticipated Discharge Date Admission Date: February 17, 2022 Subjective Patient complaining of some back pain but no leg pain. Her is at the bedside. Having difficulty with her focusing on questioning. Physical Exam Physical Exam: Patient is in the chair at the bedside. She has consented to testing. She is comfortable at this time. Results & Data ([facility]) Vital Signs (Past 12 Hours) Vital Signs Temp Pulse Resp BP Pulse Ox O2 Del Method 02/22/22 08:31 37.1 C 118 H 18 157/100 H 95 Room Air 02/22/22 01:57 Room Air
[2022-02-22] MEDS ORDERED: MILNACIPRAN HCL 50 MG PO SCH (10:30)
[2022-02-22 10:35] LABS: Hemoglobin 10.8 g/dl (12.0-16.0); Mean Corpuscular Hemoglobin 29.7 pg (25.0-34.0); Mean Corpuscular Hgb Conc 34.8 g/dL (32.0-36.0); Mean Corpuscular Volume 85.2 fL (80.0-100.0); Mean Platelet Volume 10.8 fL (9.4-12.3); Nucleated RBC # (auto) 0.05 K/uL (0-0); Nucleated RBC % (auto) 0.3 %; Platelet Count 363 K/uL (130-400); RDW Coefficient of Variation 14.3 % (11.5-14.5); RDW Standard Deviation 44.2 fL (36.4-46.3); Red Blood Count 3.64 M/uL (3.93-5.22); White Blood Count 15.02 K/ul (4.8-10.8)
[2022-02-22 11:04] LABS: BUN Creatinine Ratio 20.3 (10-20); Calcium 8.5 mg/dl (8.5-10.1); Creatinine Clr Calc Pharmacy 61.9 ml/min; Est GFR (African American) 110.3 ml/min; Est GFR (Non-African American) 95.1 ml/min; Phosphorus 2.8 mg/dl (2.5-4.9); Potassium 3.3 mmol/L (3.5-5.1)
[2022-02-22] MEDS: ONDANSETRON 4 MG OD TAB PO PRN (12:32)
[2022-02-22] MEDS: POTASSIUM CHLORIDE CRTAB 20 MEQ TABCR PO STA ×2 (12:32→13:09)
[2022-02-22] MEDS ORDERED: LORazepam 1 MG TAB PO STA (12:54)
[2022-02-22] MEDS ORDERED: POTASSIUM CHLORIDE 20 MEQ/15 ML UDC PO STA (12:58)
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
--- NOTE | 2022-02-22 15:19 | Hospitalist Progress Note ---
Date of Service February 22, 2022 Assessment & Plan (1) Neurogenic claudication due to lumbar spinal stenosis: (2) Delirium: Plan: Acute delirium following surgery Associated with Hallucinations: Pt w/ hallucinations since yesterday morning 1 , Complicated by psychiatric/meds/post op status/hospitalization. d/w psychiatry in am, no improvement, psychiatry consulted. Antipsychotic medications were on hold Appreciate psychiatric input and recommended Was given Ativan 1 mg p.o. at around noon and will be continued twice daily as before Will await further evaluation by the psychiatrist for other medications to be administered She was reassured in presence of the Plan Neurogenic claudication due to lumbar spinal stenosis S/p Lumbar L4-L5, L5-S1 decompression and fusion on 02/17/22 Likely postoperative delirium: calm and cooperative, but with hallucination. likely complicated by steroid use and other meds. delirium precautions, ensure good night sleep. Patient reports improvement in her radicular symptoms. Pt reports better pain control, appears comfortable. PT/OT, DVT Px and Pain Mx per orthospine. Encourage incentive spirometer. Labs in AM. Denies any back pain and no radicular pain Acute blood loss anemia likely postoperative: Hemoglobin 14.3 preoperatively, down to 11.3 postoperatively. We will continue to monitor. Patient with no chest pain or dizziness. Leukocytosis: Procalcitonin negative, likely secondary to steroid use perioperatively on the background of acute distress of surgery. Leukocytosis likely secondary to use of Decadron Doubt any infection Sinus tachycardia: Patient reports having intermittent tachycardia most likely associated with her anxiety, patient is on lorazepam twice a day at home. Patient reports she has been worked out as an outpatient and has not been started on any medication, she has had this sinus tachy for long time. Current triggering of her tachycardia could be due to her acute stress of surgery. Could be secondary to severe anxiety and withdrawal from antianxiety medications Other chronic conditions: depression, anxiety, hypothyroidism --> continued w/ home meds as and when able. DVT PX: SCDs now, per primary. Full Code. Dispo: Pending Admission and Anticipated Discharge Date Admission Date: February 17, 2022 Subjective 02/22/2022 The patient was seen and examined in medical floor She has significant anxiety and has been hallucinating following surgery She has very nonspecific complaints this morning with hallucination Review of Systems Review of Systems: All systems reviewed and are unremarkable except as noted below Physical Exam Physical Exam: Lying in bed very anxious Constitutional: well developed, well nourished, + ill appearing and + obese Eyes: PERRL, conjunctivae normal, anicteric sclerae ENMT: external ear and nose normal, oropharynx normal Neck: trachea midline, no thyromegaly Respiratory: no respiratory distress Auscultation: lungs clear to auscultation bilaterally Cardiovascular: Rate/Rhythm: regular rate, regular rhythm and + tachycardic Heart Sounds: normal S1 and normal S2; no murmur Extremities: + edema (Trace edema bilaterally) Gastrointestinal (Abdomen): Inspection/Auscultation: normal bowel sounds; abdomen not distended Percussion/Palpation: abdomen soft; abdomen nontender Musculoskeletal: No acute arthritis involving any Neurologic: moves all extremities and + confused Psychiatric: Orientation: alert and oriented to person Affect: + anxious affect and + labile affect Mood: + anxious mood Hallucinations: + visual hallucinations Insight: + limited insight Lymphatic: no cervical or axillary lymphadenopathy Results & Data Results & Data ([facility]) Vital Signs (Past 12 Hours) Vital Signs Temp Pulse Resp BP BP Pulse Ox O2 Del Method 02/22/22 13:48 36.8 C 120 H 16 168/108 H 94 Room Air 02/22/22 12:05 36.9 C 116 H 16 168/117 H 95 Room Air 02/22/22 08:31 37.1 C 118 H 18 157/100 H 95 Room Air Laboratory Results Short CBC 02/22/22 Range/Units 10:05 WBC 15.02 H (4.8-10.8) K/ul Hgb 10.8 L (12.0-16.0) g/dl Hct 31.0 L (34.1-44.9) % Plt Count 363 (130-400) K/uL BMP 02/22/22 10:05 Sodium 136 Potassium 3.3 L Chloride 100 Carbon Dioxide 24 BUN 15 Creatinine 0.74 Glucose 171 H Calcium 8.5 Medications Administered Current Inpatient Medications Acetaminophen (Acetaminophen 500 Mg Tab) 1,000 mg PO Q8H PRN PRN Reason: MILD Pain Scale 1,2,3 & Pre PT Stop: 03/19/22 14:31 Last Admin: 02/22/22 06:47 Dose: 1,000 mg Al Hydrox/Mg Hydrox/Simethicone (Aluminum/Magnesium Susp 30 Ml Udc) 30 ml PO Q6H PRN PRN Reason: Dyspepsia Stop: 03/19/22 14:31 Bisacodyl (Bisacodyl 10 Mg Supp) 10 mg MA DAILY PRN PRN Reason: Constipation Stop: 03/19/22 14:31 Bupropion HCl (Bupropion Xl 150 Mg Tabcr) 150 mg PO QAM [facility] Stop: 03/20/22 08:59 Last Admin: 02/21/22 08:43 Dose: 150 mg Bupropion HCl (Bupropion Xl 300 Mg Tabcr) 300 mg PO QAM [facility] Stop: 03/20/22 08:59 Last Admin: 02/21/22 08:43 Dose: 300 mg Cetirizine HCl (Cetirizine Hcl 10 Mg Tablet) 10 mg PO DAILY PRN PRN Reason: Congestion Stop: 03/19/22 14:31 Diphenhydramine HCl (Diphenhydramine Capsule 25 Mg Cap) 25 mg PO Q6H PRN PRN Reason: Allergic Rhinitis/Insomnia Stop: 03/19/22 14:31 Escitalopram Oxalate (Escitalopram Oxalate 20 Mg Tab) 20 mg PO QAM [facility] Stop: 03/20/22 08:59 Last Admin: 02/21/22 08:43 Dose: 20 mg Famotidine (Famotidine 20 Mg Tab) 20 mg PO Q12H PRN PRN Reason: Dyspepsia Stop: 03/19/22 14:31 Fentanyl (Fentanyl 12 Mcg/Hr Tdsy) 12 mcg TD Q72H [facility] Stop: 03/03/22 14:31 Last Admin: 02/20/22 15:24 Dose: 12 mcg Fluticasone Propionate (Fluticasone Propionate Na Spr 16 Gm Btl) 1 sprays NA BID PRN PRN Reason: Congestion Stop: 03/19/22 15:18 Hydromorphone HCl (Hydromorphone Inj 0.5 Mg/0.5 Ml Syr) 0.5 mg IV Q3H PRN PRN Reason: MODERATE Pain (Scale 4,5,6) & Pre PT Stop: 03/03/22 14:31 Hydromorphone HCl (Hydromorphone Inj 1 Mg/Ml Syringe) 1 mg IV Q3H PRN PRN Reason: SEVERE Pain (Scale 7,8,9,10) Stop: 03/03/22 14:31 Last Admin: 02/21/22 02:15 Dose: 1 mg Hydroxyzine HCl (Hydroxyzine Hcl 25 Mg Tab) 25 mg PO Q8H PRN PRN Reason: Anxiety Stop: 03/19/22 14:31 Last Admin: 02/22/22 12:32 Dose: 25 mg Promethazine HCl 12.5 mg/ (Sodium Chloride) 50.5 mls @ 202 mls/hr IV Q6H PRN PRN Reason: Nausea &/or Vomiting Stop: 03/19/22 14:31 Lorazepam 0.5 mg/ Syringe 0.5 mls @ 2 mls/min IV Q8H PRN PRN Reason: Sedation/Anxiety Stop: 03/19/22 14:31 Levonorgestrel (Levonorgestrel (Mirena) Iud) 1 each PV UD [facility] Stop: 03/22/22 14:14 Levothyroxine Sodium (Levothyroxine Sodium 50 Mcg Tablet) 50 mcg PO QAM [facility] Stop: 03/20/22 08:59 Last Admin: 02/22/22 08:02 Dose: 50 mcg Lorazepam (Lorazepam 1 Mg Tab) 1 mg PO BID JUAN C Stop: 03/19/22 20:59 Last Admin: 02/21/22 08:43 Dose: 1 mg Lorazepam (Lorazepam 0.5 Mg Tab) 0.5 mg PO Q8H PRN PRN Reason: Sedation/Anxiety Stop: 03/19/22 14:31 Magnesium Hydroxide (Magnesium Hydroxide Susp 30 Ml Udc) 30 ml PO Q24H PRN PRN Reason: Constipation Stop: 03/19/22 14:31 Melatonin (Melatonin 3 Mg Tab) 6 mg PO HS [facility] Stop: 03/22/22 20:59 Last Admin: 02/21/22 19:56 Dose: 6 mg Metoclopramide HCl (Metoclopramide Hcl Inj 5 Mg/Ml 2 Ml Vial) 10 mg IV Q6H PRN PRN Reason: Nausea &/or Vomiting Stop: 03/19/22 14:31 Milnacipran HCl (Milnacipran Hcl 50mg) 1 each PO BID JUAN C Stop: 03/24/22 10:29 Last Admin: 02/22/22 10:23 Dose: 1 each Miscellaneous (Fentanyl Patch Remove & Waste) 1 each N/A Q3D [facility] Stop: 03/19/22 14:31 Last Admin: 02/20/22 15:28 Dose: 1 each Miscellaneous (Check Fentanyl Patch Placement) 1 each N/A QS [facility] Stop: 03/19/22 15:59 Last Admin: 02/22/22 08:02 Dose: 1 each Naloxone HCl (Naloxone Hcl 0.4 Mg/1 Ml Vial/Carp) 0.1 mg IV Q5M PRN PRN Reason: Oversedation/Resp depression Stop: 03/19/22 14:31 Ondansetron HCl (Ondansetron Inj 2 Mg/Ml 2 Ml Vial) 4 mg IV Q6H PRN PRN Reason: Nausea &/or Vomiting Stop: 03/19/22 14:31 Ondansetron HCl (Ondansetron 4 Mg Od Tab) 4 mg PO Q6H PRN PRN Reason: Nausea Stop: 03/19/22 14:31 Last Admin: 02/22/22 12:32 Dose: 4 mg Oxycodone HCl (Oxycodone Hcl Ir 5 Mg Tab (Immediate Release)) 5 - 10 mg PO Q4H PRN PRN Reason: Pain & Pre PT Stop: 03/03/22 14:31 Last Admin: 02/22/22 01:21 Dose: 5 mg Pregabalin (Pregabalin 75 Mg Cap) 75 mg PO TID JUAN C Stop: 03/19/22 14:31 Last Admin: 02/22/22 14:02 Dose: 75 mg Rizatriptan Benzoate (Rizatriptan Benzoate Him Tech 10 Mg Tab) 10 mg PO UD PRN PRN Reason: Migraine Headache Stop: 03/22/22 14:14 Senna/Docusate Sodium (Docusate Sodium/Senna 50/8.6mg Tab) 2 tab PO HS JUAN C Stop: 03/19/22 20:59 Last Admin: 02/21/22 19:55 Dose: 2 tab Sodium Biphosphate/Sodium Phosphate (Sod Phosphate/Sod Biphosphate Enema 132 Ml Btl) 132 ml MA ONE PRN PRN Reason: Constipation Stop: 03/19/22 14:31 Tramadol HCl (Tramadol Hcl 50 Mg Tablet) 50 - 100 mg PO Q4H PRN PRN Reason: Moderate-Severe pain & Pre PT Stop: 03/19/22 14:31 Last Admin: 02/20/22 14:42 Dose: 50 mg
[2022-02-22] MEDS ORDERED: LORazepam 0.5 MG in SYRINGE 0 ML IV ONE (20:30)
[2022-02-22] MEDS: LORazepam 1 MG TAB PO SCH (21:11)
[2022-02-22] MEDS: SODIUM CHLORIDE 0.9% 1000ML 1,000 ML IV SCH (21:11)
[2022-02-22] MEDS: DOCUSATE SODIUM/SENNA 50/8.6MG TAB PO SCH (21:12)
[2022-02-22] MEDS: MELATONIN 3 MG TAB PO SCH (21:12)
[2022-02-22] MEDS ORDERED: LORazepam 0.5 MG in SYRINGE 0 ML IV STA (23:31)
[2022-02-23] MEDS: CHECK fentaNYL PATCH PLACEMENT SCH ×4 (00:23→23:01)
[2022-02-23] MEDS: fentaNYL 12 MCG/HR TDSY TD SCH (00:39)
[2022-02-23] MEDS: HYDROmorphone INJ 1 MG/ML SYRINGE IV PRN (00:48)
[2022-02-23] MEDS: PREGABALIN 75 MG CAP PO SCH ×4 (08:19→21:41)
[2022-02-23] MEDS: LEVOTHYROXINE SODIUM 50 MCG TABLET PO SCH ×3 (08:19→11:48)
[2022-02-23] MEDS: LORazepam 1 MG TAB PO SCH ×3 (08:19→21:41)
[2022-02-23] MEDS: SODIUM CHLORIDE 0.9% 1000ML 1,000 ML IV SCH ×2 (08:41→21:28)
--- NOTE | 2022-02-23 08:46 | Orthopedic Progress Note ---
Date of Service February 23, 2022 Assessment & Plan (1) Neurogenic claudication due to lumbar spinal stenosis: Plan: At this time I will have her continue with therapy as tolerated. She is orthopedically stable for discharge but will wait for medical clearance. Admission and Anticipated Discharge Date Admission Date: February 17, 2022 Subjective Patient is cooperative this morning. She states she is feeling better. She has some soreness in her legs. Physical Exam Physical Exam: On exam she is alert and oriented. She is good strength testing. Results & Data ([facility]) Vital Signs (Past 12 Hours) Vital Signs Temp Pulse Pulse Resp BP BP Pulse Ox 02/23/22 07:43 36.7 C 113 H 16 134/62 93 02/23/22 05:59 143/92 H 02/23/22 02:47 105 H 02/22/22 23:30 36.9 C 130 H 20 164/105 H 96 O2 Del Method 02/23/22 07:43 02/23/22 05:59 02/23/22 02:47 02/22/22 23:30 Room Air
[2022-02-23] MEDS: ACETAMINOPHEN 500 MG TAB PO PRN ×3 (11:10→23:30)
--- NOTE | 2022-02-23 11:37 | Psychiatric Progress Note ---
Date of Service February 23, 2022 Impression / Recommendations Impression 02/22/22: 51 yo female with a history of non specific depression/anxiety, multiple meds due to fibro and spine issues with post op delirium, significant polypharmacy. Reviewed with patient and my concern re: dosing of Wellbutrin and Celex in addition to Savella and cannot exclude serotonin syndrome. I understand that they are attributing much of her delirium to abrupt discontinuation of Savella but I cannot exclude serotonin syndrome and feel safest to hold Wellbutrin and Celexa temporarily and resume at lower dose. LISA for outpatient provider for records/coordination of care. since see this am and receiving Savella was notified that patient is now more anxious, BP and P significantly elevated--not clear that related to Savella but differential of her delirium continues to include serotonin syndrome, withdrawal, post op, pain meds, etc. It appears that Ativan was held yesterday due to AMS. 02/23/22: Patient waxes/wanes, delirium seems slightly improved but ?withdrawal, may need 1-on-1 if continues to misuse phone, remove patches. Also supervision in case of surreptitious substance use. (1) Delirium: Plan LM for dr. Aleksandra Mckinnon at [facility] counseling given complex polypharm would suggest continuing to hold Wellbutrin and Lexapro, defer Savella dosing/reinitiation to hospitalist/surgery--unclear if BP changes yesterday related to restart vs. Ativan held. Interval History Identifying Information 51 yo female seen for initial consult on 02/22/22 for postop delirium (likely multifactorial). Chief Complaint "My stomach hurts" Review of Systems Notes patient denied other than stated above. Subjective Subjective Patient was seen & assessed and interval progress reviewed with nursing. Patient was again confused overnight with calling 911. earlier in the day she had removed a fentanyl patch and had placed in sharps container (witnessed in sharps) but apparently happened a second time. Patients BP improved but remains tachy and now c/o abdominal discomfort, cramping, D, and some hot/cold sweats. Patient was seen soon after she had dumped her breakfast tray. Is not able to explain her behavior but answered yes/no questions appropriately and seemed less confused than yesterday. No hallucinations noted. Procedures Performed Operation Date: 02/17/22 09:35 Actual Procedures p L4-S1 Decompression and Fusion, Spinal Cord Monitoring(Not Applicable) - Darien Acosta, DO Physical Exam Psychiatric Orientation: alert and oriented to person Apperance: appropriately groomed Eye Contact: + fair eye contact Motor Behavior: + tremor Speech: normal rate/rhythm/volume of speech Affect: + blunted affect Mood: + anxious mood Thought Process: + circumstantial thought process and + concrete thought process Thought Content: not paranoid Suicidal Thoughts: denies suicidal thoughts Homicidal Thoughts: denies homicidal thoughts Hallucinations: no auditory hallucinations and no visual hallucinations Cognition: language grossly intact; + attention not intact Insight: + limited insight Vital Signs (Past 24 Hours) Last Vital Signs Temp 36.7 C 02/23/22 07:43 Pulse 113 H 02/23/22 07:43 Resp 16 02/23/22 07:43 BP 134/62 02/23/22 07:43 Pulse Ox 93 02/23/22 07:43 O2 Del Method 02/22/22 23:30 O2 Flow Rate 2 02/17/22 17:02 Results & Data ([facility]) Current Inpatient Medications Current Inpatient Medications: Current Inpatient Medications Acetaminophen (Acetaminophen 500 Mg Tab) 1,000 mg PO Q8H PRN PRN Reason: MILD Pain Scale 1,2,3 & Pre PT Stop: 03/19/22 14:31 Last Admin: 02/23/22 11:10 Dose: 1,000 mg Al Hydrox/Mg Hydrox/Simethicone (Aluminum/Magnesium Susp 30 Ml Udc) 30 ml PO Q6H PRN PRN Reason: Dyspepsia Stop: 03/19/22 14:31 Bisacodyl (Bisacodyl 10 Mg Supp) 10 mg MT DAILY PRN PRN Reason: Constipation Stop: 03/19/22 14:31 Bupropion HCl (Bupropion Xl 150 Mg Tabcr) 150 mg PO QAM JUAN C Stop: 03/20/22 08:59 Last Admin: 02/21/22 08:43 Dose: 150 mg Bupropion HCl (Bupropion Xl 300 Mg Tabcr) 300 mg PO QAM JUAN C Stop: 03/20/22 08:59 Last Admin: 02/21/22 08:43 Dose: 300 mg Cetirizine HCl (Cetirizine Hcl 10 Mg Tablet) 10 mg PO DAILY PRN PRN Reason: Congestion Stop: 03/19/22 14:31 Diphenhydramine HCl (Diphenhydramine Capsule 25 Mg Cap) 25 mg PO Q6H PRN PRN Reason: Allergic Rhinitis/Insomnia Stop: 03/19/22 14:31 Escitalopram Oxalate (Escitalopram Oxalate 20 Mg Tab) 20 mg PO QAM JUAN C Stop: 03/20/22 08:59 Last Admin: 02/21/22 08:43 Dose: 20 mg Famotidine (Famotidine 20 Mg Tab) 20 mg PO Q12H PRN PRN Reason: Dyspepsia Stop: 03/19/22 14:31 Fentanyl (Fentanyl 12 Mcg/Hr Tdsy) 12 mcg TD Q3D@0900 [facility] Stop: 03/09/22 00:29 Last Admin: 02/23/22 00:39 Dose: 12 mcg Fluticasone Propionate (Fluticasone Propionate Na Spr 16 Gm Btl) 1 sprays NA BID PRN PRN Reason: Congestion Stop: 03/19/22 15:18 Hydromorphone HCl (Hydromorphone Inj 0.5 Mg/0.5 Ml Syr) 0.5 mg IV Q3H PRN PRN Reason: MODERATE Pain (Scale 4,5,6) & Pre PT Stop: 03/03/22 14:31 Hydromorphone HCl (Hydromorphone Inj 1 Mg/Ml Syringe) 1 mg IV Q3H PRN PRN Reason: SEVERE Pain (Scale 7,8,9,10) Stop: 03/03/22 14:31 Last Admin: 02/23/22 00:48 Dose: 1 mg Hydroxyzine HCl (Hydroxyzine Hcl 25 Mg Tab) 25 mg PO Q8H PRN PRN Reason: Anxiety Stop: 03/19/22 14:31 Last Admin: 02/22/22 12:32 Dose: 25 mg Promethazine HCl 12.5 mg/ (Sodium Chloride) 50.5 mls @ 202 mls/hr IV Q6H PRN PRN Reason: Nausea &/or Vomiting Stop: 03/19/22 14:31 Lorazepam 0.5 mg/ Syringe 0.5 mls @ 2 mls/min IV Q8H PRN PRN Reason: Sedation/Anxiety Stop: 03/19/22 14:31 Sodium Chloride (Nss 1000ml) 1,000 mls @ 80 mls/hr IV .[id number] [facility] Stop: 03/24/22 20:44 Last Admin: 02/23/22 08:41 Dose: 80 mls/hr Levonorgestrel (Levonorgestrel (Mirena) Iud) 1 each PV UD [facility] Stop: 03/22/22 14:14 Levothyroxine Sodium (Levothyroxine Sodium 50 Mcg Tablet) 50 mcg PO QAM [facility] Stop: 03/20/22 08:59 Last Admin: 02/23/22 11:11 Dose: 50 mcg Lorazepam (Lorazepam 1 Mg Tab) 1 mg PO BID [facility] Stop: 03/19/22 20:59 Last Admin: 02/22/22 21:11 Dose: 1 mg Lorazepam (Lorazepam 0.5 Mg Tab) 0.5 mg PO Q8H PRN PRN Reason: Sedation/Anxiety Stop: 03/19/22 14:31 Magnesium Hydroxide (Magnesium Hydroxide Susp 30 Ml Udc) 30 ml PO Q24H PRN PRN Reason: Constipation Stop: 03/19/22 14:31 Melatonin (Melatonin 3 Mg Tab) 6 mg PO HS [facility] Stop: 03/22/22 20:59 Last Admin: 02/22/22 21:12 Dose: 6 mg Metoclopramide HCl (Metoclopramide Hcl Inj 5 Mg/Ml 2 Ml Vial) 10 mg IV Q6H PRN PRN Reason: Nausea &/or Vomiting Stop: 03/19/22 14:31 Milnacipran HCl (Milnacipran Hcl 50mg) 1 each PO BID [facility] Stop: 03/24/22 10:29 Last Admin: 02/22/22 10:23 Dose: 1 each Miscellaneous (Check Fentanyl Patch Placement) 1 each N/A QS [facility] Stop: 03/19/22 15:59 Last Admin: 02/23/22 08:19 Dose: 1 each Miscellaneous (Fentanyl Patch Remove & Waste) 1 each N/A Q3D@0859 [facility] Stop: 03/25/22 00:28 Last Admin: 02/23/22 00:56 Dose: Not Given Naloxone HCl (Naloxone Hcl 0.4 Mg/1 Ml Vial/Carp) 0.1 mg IV Q5M PRN PRN Reason: Oversedation/Resp depression Stop: 03/19/22 14:31 Ondansetron HCl (Ondansetron Inj 2 Mg/Ml 2 Ml Vial) 4 mg IV Q6H PRN PRN Reason: Nausea &/or Vomiting Stop: 03/19/22 14:31 Ondansetron HCl (Ondansetron 4 Mg Od Tab) 4 mg PO Q6H PRN PRN Reason: Nausea Stop: 03/19/22 14:31 Last Admin: 02/22/22 12:32 Dose: 4 mg Oxycodone HCl (Oxycodone Hcl Ir 5 Mg Tab (Immediate Release)) 5 - 10 mg PO Q4H PRN PRN Reason: Pain & Pre PT Stop: 03/03/22 14:31 Last Admin: 02/22/22 01:21 Dose: 5 mg Pregabalin (Pregabalin 75 Mg Cap) 75 mg PO TID JUAN C Stop: 03/19/22 14:31 Last Admin: 02/22/22 21:11 Dose: 75 mg Rizatriptan Benzoate (Rizatriptan Benzoate Sand Screener Operator 10 Mg Tab) 10 mg PO UD PRN PRN Reason: Migraine Headache Stop: 03/22/22 14:14 Last Admin: 02/22/22 17:52 Dose: 10 mg Senna/Docusate Sodium (Docusate Sodium/Senna 50/8.6mg Tab) 2 tab PO HS JUAN C Stop: 03/19/22 20:59 Last Admin: 02/22/22 21:12 Dose: 2 tab Sodium Biphosphate/Sodium Phosphate (Sod Phosphate/Sod Biphosphate Enema 132 Ml Btl) 132 ml MT ONE PRN PRN Reason: Constipation Stop: 03/19/22 14:31 Tramadol HCl (Tramadol Hcl 50 Mg Tablet) 50 - 100 mg PO Q4H PRN PRN Reason: Moderate-Severe pain & Pre PT Stop: 03/19/22 14:31 Last Admin: 02/20/22 14:42 Dose: 50 mg
--- NOTE | 2022-02-23 15:35 | Communication Note ---
Date of Service: February 23, 2022 spoke with outpatient treating psychiatrist re: patient's presentation here, certain meds currently being held due to AMS. She sees patient via telehealth and is aware of complex family dynamics, she denied concerns/knowledge about misuse of opiates but does suspect alcohol use. 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 Dr. Acosta updated.
--- NOTE | 2022-02-23 15:53 | Hospitalist Progress Note ---
Date of Service February 23, 2022 Assessment & Plan (1) Neurogenic claudication due to lumbar spinal stenosis: (2) Delirium: Plan: Acute delirium following surgery Associated with Hallucinations: Pt w/ hallucinations since yesterday morning 1 , Complicated by psychiatric/meds/post op status/hospitalization. d/w psychiatry in am, no improvement, psychiatry consulted. Antipsychotic medications were on hold Appreciate psychiatric input and recommended Was given Ativan 1 mg p.o. at around noon and will be continued twice daily as before Will await further evaluation by the psychiatrist for other medications to be administered She was reassured in presence of the Remains very anxious Plan Neurogenic claudication due to lumbar spinal stenosis S/p Lumbar L4-L5, L5-S1 decompression and fusion on 02/17/22 Likely postoperative delirium: calm and cooperative, but with hallucination. likely complicated by steroid use and other meds. delirium precautions, ensure good night sleep. Patient reports improvement in her radicular symptoms. Pt reports better pain control, appears comfortable. PT/OT, DVT Px and Pain Mx per orthospine. Encourage incentive spirometer. Labs in AM. Complains of low back pain-diclofenac sodium was applied and advised to have moist hot compression Acute blood loss anemia likely postoperative: Hemoglobin 14.3 preoperatively, down to 11.3 postoperatively. We will continue to monitor. Patient with no chest pain or dizziness. Leukocytosis: Procalcitonin negative, likely secondary to steroid use perioperatively on the background of acute distress of surgery. Leukocytosis likely secondary to use of Decadron Doubt any infection Sinus tachycardia: Patient reports having intermittent tachycardia most likely associated with her anxiety, patient is on lorazepam twice a day at home. Patient reports she has been worked out as an outpatient and has not been started on any medication, she has had this sinus tachy for long time. Current triggering of her tachycardia could be due to her acute stress of surgery. Could be secondary to severe anxiety and withdrawal from antianxiety medications Likely secondary to anxiety Other chronic conditions: depression, anxiety, hypothyroidism --> continued w/ home meds as and when able. DVT PX: SCDs now, per primary. Full Code. Dispo: Pending Admission and Anticipated Discharge Date Admission Date: February 17, 2022 Subjective 02/23/2022 The patient was seen and examined in medical floor She was feeling much better in the morning but in the afternoon she got very anxious Complaining of back pain with radiation to the legs Refusing any medications Physical Exam Physical Exam: Sitting on bed with acute anxiety Constitutional: well developed, well nourished, + ill appearing and + obese Eyes: PERRL, conjunctivae normal, anicteric sclerae ENMT: external ear and nose normal, oropharynx normal Neck: trachea midline, no thyromegaly Respiratory: no respiratory distress Auscultation: lungs clear to auscultation bilaterally Cardiovascular: Rate/Rhythm: regular rate, regular rhythm and + tachycardic Heart Sounds: normal S1 and normal S2; no murmur Extremities: + edema (Trace edema bilaterally) Gastrointestinal (Abdomen): Inspection/Auscultation: normal bowel sounds; abdomen not distended Percussion/Palpation: abdomen soft; abdomen nontender Neurologic: moves all extremities and + confused Psychiatric: Orientation: alert and oriented to person Affect: + anxious affect and + labile affect Mood: + anxious mood Hallucinations: + visual hallucinations Insight: + limited insight Lymphatic: no cervical or axillary lymphadenopathy Results & Data Results & Data ([facility]) Vital Signs (Past 12 Hours) Vital Signs Temp Pulse Resp BP BP Pulse Ox 02/23/22 07:43 36.7 C 113 H 16 134/62 93 02/23/22 05:59 143/92 H Medications Administered Current Inpatient Medications Acetaminophen (Acetaminophen 500 Mg Tab) 1,000 mg PO Q8H PRN PRN Reason: MILD Pain Scale 1,2,3 & Pre PT Stop: 03/19/22 14:31 Last Admin: 02/23/22 15:26 Dose: 1,000 mg Al Hydrox/Mg Hydrox/Simethicone (Aluminum/Magnesium Susp 30 Ml Udc) 30 ml PO Q6H PRN PRN Reason: Dyspepsia Stop: 03/19/22 14:31 Bisacodyl (Bisacodyl 10 Mg Supp) 10 mg ID DAILY PRN PRN Reason: Constipation Stop: 03/19/22 14:31 Bupropion HCl (Bupropion Xl 150 Mg Tabcr) 150 mg PO QAM [facility] Stop: 03/20/22 08:59 Last Admin: 02/21/22 08:43 Dose: 150 mg Bupropion HCl (Bupropion Xl 300 Mg Tabcr) 300 mg PO QAM [facility] Stop: 03/20/22 08:59 Last Admin: 02/21/22 08:43 Dose: 300 mg Cetirizine HCl (Cetirizine Hcl 10 Mg Tablet) 10 mg PO DAILY PRN PRN Reason: Congestion Stop: 03/19/22 14:31 Diclofenac Sodium (Diclofenac Sod 1% Gel 100 Gm Tube) 2 gm EXT BID [facility]; Protocol Stop: 03/25/22 20:59 Diphenhydramine HCl (Diphenhydramine Capsule 25 Mg Cap) 25 mg PO Q6H PRN PRN Reason: Allergic Rhinitis/Insomnia Stop: 03/19/22 14:31 Escitalopram Oxalate (Escitalopram Oxalate 20 Mg Tab) 20 mg PO QAM [facility] Stop: 03/20/22 08:59 Last Admin: 02/21/22 08:43 Dose: 20 mg Famotidine (Famotidine 20 Mg Tab) 20 mg PO Q12H PRN PRN Reason: Dyspepsia Stop: 03/19/22 14:31 Fentanyl (Fentanyl 12 Mcg/Hr Tdsy) 12 mcg TD Q3D@0900 [facility] Stop: 03/09/22 00:29 Last Admin: 02/23/22 00:39 Dose: 12 mcg Fluticasone Propionate (Fluticasone Propionate Na Spr 16 Gm Btl) 1 sprays NA BID PRN PRN Reason: Congestion Stop: 03/19/22 15:18 Hydromorphone HCl (Hydromorphone Inj 0.5 Mg/0.5 Ml Syr) 0.5 mg IV Q3H PRN PRN Reason: MODERATE Pain (Scale 4,5,6) & Pre PT Stop: 03/03/22 14:31 Hydromorphone HCl (Hydromorphone Inj 1 Mg/Ml Syringe) 1 mg IV Q3H PRN PRN Reason: SEVERE Pain (Scale 7,8,9,10) Stop: 03/03/22 14:31 Last Admin: 02/23/22 00:48 Dose: 1 mg Hydroxyzine HCl (Hydroxyzine Hcl 25 Mg Tab) 25 mg PO Q8H PRN PRN Reason: Anxiety Stop: 03/19/22 14:31 Last Admin: 02/22/22 12:32 Dose: 25 mg Promethazine HCl 12.5 mg/ (Sodium Chloride) 50.5 mls @ 202 mls/hr IV Q6H PRN PRN Reason: Nausea &/or Vomiting Stop: 03/19/22 14:31 Lorazepam 0.5 mg/ Syringe 0.5 mls @ 2 mls/min IV Q8H PRN PRN Reason: Sedation/Anxiety Stop: 03/19/22 14:31 Sodium Chloride (Nss 1000ml) 1,000 mls @ 80 mls/hr IV .[id number] [facility] Stop: 03/24/22 20:44 Last Admin: 02/23/22 08:41 Dose: 80 mls/hr Levonorgestrel (Levonorgestrel (Mirena) Iud) 1 each PV UD [facility] Stop: 03/22/22 14:14 Levothyroxine Sodium (Levothyroxine Sodium 50 Mcg Tablet) 50 mcg PO QAM [facility] Stop: 03/20/22 08:59 Last Admin: 02/23/22 11:48 Dose: Not Given Lorazepam (Lorazepam 1 Mg Tab) 1 mg PO BID [facility] Stop: 03/19/22 20:59 Last Admin: 02/23/22 11:47 Dose: Not Given Lorazepam (Lorazepam 0.5 Mg Tab) 0.5 mg PO Q8H PRN PRN Reason: Sedation/Anxiety Stop: 03/19/22 14:31 Magnesium Hydroxide (Magnesium Hydroxide Susp 30 Ml Udc) 30 ml PO Q24H PRN PRN Reason: Constipation Stop: 03/19/22 14:31 Melatonin (Melatonin 3 Mg Tab) 6 mg PO HS [facility] Stop: 03/22/22 20:59 Last Admin: 02/22/22 21:12 Dose: 6 mg Metoclopramide HCl (Metoclopramide Hcl Inj 5 Mg/Ml 2 Ml Vial) 10 mg IV Q6H PRN PRN Reason: Nausea &/or Vomiting Stop: 03/19/22 14:31 Milnacipran HCl (Milnacipran Hcl 50mg) 1 each PO BID [facility] Stop: 03/24/22 10:29 Last Admin: 02/22/22 10:23 Dose: 1 each Miscellaneous (Check Fentanyl Patch Placement) 1 each N/A QS [facility] Stop: 03/19/22 15:59 Last Admin: 02/23/22 15:26 Dose: 1 each Miscellaneous (Fentanyl Patch Remove & Waste) 1 each N/A Q3D@0859 [facility] Stop: 03/25/22 00:28 Last Admin: 02/23/22 00:56 Dose: Not Given Naloxone HCl (Naloxone Hcl 0.4 Mg/1 Ml Vial/Carp) 0.1 mg IV Q5M PRN PRN Reason: Oversedation/Resp depression Stop: 03/19/22 14:31 Ondansetron HCl (Ondansetron Inj 2 Mg/Ml 2 Ml Vial) 4 mg IV Q6H PRN PRN Reason: Nausea &/or Vomiting Stop: 03/19/22 14:31 Ondansetron HCl (Ondansetron 4 Mg Od Tab) 4 mg PO Q6H PRN PRN Reason: Nausea Stop: 03/19/22 14:31 Last Admin: 02/22/22 12:32 Dose: 4 mg Oxycodone HCl (Oxycodone Hcl Ir 5 Mg Tab (Immediate Release)) 5 - 10 mg PO Q4H PRN PRN Reason: Pain & Pre PT Stop: 03/03/22 14:31 Last Admin: 02/22/22 01:21 Dose: 5 mg Pregabalin (Pregabalin 75 Mg Cap) 75 mg PO TID JUAN C Stop: 03/19/22 14:31 Last Admin: 02/23/22 15:14 Dose: Not Given Rizatriptan Benzoate (Rizatriptan Benzoate Security Patrol Driver 10 Mg Tab) 10 mg PO UD PRN PRN Reason: Migraine Headache Stop: 03/22/22 14:14 Last Admin: 02/22/22 17:52 Dose: 10 mg Senna/Docusate Sodium (Docusate Sodium/Senna 50/8.6mg Tab) 2 tab PO HS [facility] Stop: 03/19/22 20:59 Last Admin: 02/22/22 21:12 Dose: 2 tab Sodium Biphosphate/Sodium Phosphate (Sod Phosphate/Sod Biphosphate Enema 132 Ml Btl) 132 ml ID ONE PRN PRN Reason: Constipation Stop: 03/19/22 14:31 Tramadol HCl (Tramadol Hcl 50 Mg Tablet) 50 - 100 mg PO Q4H PRN PRN Reason: Moderate-Severe pain & Pre PT Stop: 03/19/22 14:31 Last Admin: 02/20/22 14:42 Dose: 50 mg
[2022-02-23] MEDS: DICLOFENAC SOD 1% GEL 100 GM TUBE EXT SCH (21:28)
[2022-02-23] MEDS: MELATONIN 3 MG TAB PO SCH (21:28)
[2022-02-23] MEDS: DOCUSATE SODIUM/SENNA 50/8.6MG TAB PO SCH (21:28)
[2022-02-24] MEDS: traMADol HCL 50 MG TABLET PO PRN ×2 (00:11→07:53)
[2022-02-24] MEDS: HYDROmorphone INJ 1 MG/ML SYRINGE IV PRN (02:30)
[2022-02-24] MEDS: LEVOTHYROXINE SODIUM 50 MCG TABLET PO SCH (07:41)
[2022-02-24] MEDS: CHECK fentaNYL PATCH PLACEMENT SCH ×3 (07:41→23:34)
[2022-02-24] MEDS ORDERED: OLANZapine ZYDIS 5 MG ORALLY DIS. TAB PO PRN (08:25)
[2022-02-24] MEDS ORDERED: LORazepam 1 MG in SYRINGE 0 ML IV PRN (08:25)
[2022-02-24] MEDS: DICLOFENAC SOD 1% GEL 100 GM TUBE EXT SCH ×2 (08:56→20:38)
[2022-02-24] MEDS: PREGABALIN 75 MG CAP PO SCH ×3 (09:06→20:38)
[2022-02-24] MEDS: LORazepam 1 MG TAB PO SCH ×2 (09:06→20:38)
[2022-02-24] MEDS: ACETAMINOPHEN 500 MG TAB PO PRN (09:06)
[2022-02-24 10:02] LABS: Calcium 8.3 mg/dl (8.5-10.1); Creatinine Clr Calc Pharmacy 91.6 ml/min; Est GFR (African American) 131.7 ml/min; Est GFR (Non-African American) 113.7 ml/min; Potassium 3.6 mmol/L (3.5-5.1)
--- NOTE | 2022-02-24 10:04 | Orthopedic Progress Note ---
Date of Service February 24, 2022 Assessment & Plan (1) Neurogenic claudication due to lumbar spinal stenosis: Plan: Assessment status post lumbar decompression fusion. Plan at this time I encouraged her to continue with physical therapy as tolerated. Obtain x-rays today. This point we are awaiting discharge until she is medically and psychologically stable. Admission and Anticipated Discharge Date Admission Date: February 17, 2022 Subjective Patient complaining of intermittent back pain with left leg pain Physical Exam Physical Exam: On exam she is cooperative. She is neurologically intact to testing. She is difficult to keep focused throughout her discussion. Results & Data ([facility]) Vital Signs (Past 12 Hours) Vital Signs Temp Pulse Resp BP Pulse Ox O2 Del Method 02/24/22 08:02 37 C 110 H 16 158/99 H 94 Room Air 02/23/22 23:00 132/76 02/23/22 22:31 36.6 C 106 H 18 152/117 H 95 Room Air
--- NOTE | 2022-02-24 11:09 | Ultrasound Report ---
BILATERAL LOWER EXTREMITY VENOUS DOPPLER HISTORY: Bilateral leg pain. COMPARISON STUDY: None. FINDINGS: There is normal compressibility, flow, and augmentation within the bilateral lower extremit y deep venous systems. IMPRESSION: No DVT within the right or left lower extremity. ACT 112: Negative or not required by law. Electronically signed by: Clay Pulliam M.D. 02/24/2022 11:07 AM
[2022-02-24] MEDS: ENOXAPARIN INJ 40 MG/0.4 ML SYR SQ SCH (11:20)
[2022-02-24] MEDS: SODIUM CHLORIDE 0.9% 1000ML 1,000 ML IV SCH ×2 (11:23→23:33)
--- NOTE | 2022-02-24 11:45 | XRay Report ---
XR lumbar spine 2-3V HISTORY: 51 years-old Female postop postoperative exam COMPARISON: Fluoroscopic images of the lumbar spine 02/17/2022 TECHNIQUE: 3 views of the lumbar spine FINDINGS: Posterior interbody heather and screw fusion with discectomy noted at L4-S1. 9 mm anterolisthesis L5 on S 1. The hardware appears intact. Lumbar levoscoliosis. Demineralized appearance of the bones. Multilev el intervertebral disc space narrowing, moderate at L1-L2. No acute fracture or subluxation identifie d. There are 2 bone fragments noted measuring up to 1.6 cm inferior to the L2 spinous process which m ay be on a postoperative basis. Moderate fecal retention of the left hemicolon with scattered air-fluid levels. Cholecystectomy. IMPRESSION: 1. No acute fracture identified. 2. Postoperative changes of the lower lumbar spine as above. ACT 112: Negative or not required by law. The above report was generated using voice recognition software. It may contain grammatical, syntax o r spelling errors. Electronically signed by: Glenn Byrnes M.D. 02/24/2022 11:43 AM
[2022-02-24] MEDS: ONDANSETRON 4 MG OD TAB PO PRN (12:08)
[2022-02-24] MEDS: KETOROLAC TROMETHAMINE 15 MG/ML VIAL IV PRN ×2 (12:38→17:37)
--- NOTE | 2022-02-24 15:19 | Hospitalist Progress Note ---
Date of Service February 24, 2022 Assessment & Plan (1) Neurogenic claudication due to lumbar spinal stenosis: (2) Delirium: Plan: Acute delirium following surgery Associated with Hallucinations: Pt w/ hallucinations since yesterday morning 1 , Complicated by psychiatric/meds/post op status/hospitalization. d/w psychiatry in am, no improvement, psychiatry consulted. Antipsychotic medications were on hold Appreciate psychiatric input and recommended Was given Ativan 1 mg p.o. at around noon and will be continued twice daily as before Will await further evaluation by the psychiatrist for other medications to be administered She was reassured in presence of the Remains very anxious Complains to have chest pain EKG remained unremarkable No desaturation If remains tachycardic will get CTA rule out pulmonary embolism Plan Neurogenic claudication due to lumbar spinal stenosis S/p Lumbar L4-L5, L5-S1 decompression and fusion on 02/17/22 Likely postoperative delirium: calm and cooperative, but with hallucination. likely complicated by steroid use and other meds. delirium precautions, ensure good night sleep. Patient reports improvement in her radicular symptoms. Pt reports better pain control, appears comfortable. PT/OT, DVT Px and Pain Mx per orthospine. Encourage incentive spirometer. Labs in AM. Complains of low back pain-diclofenac sodium was applied and advised to have moist hot compression Repeat x-ray of the lumbar spine did not show any significant changes except changes due to recent surgery Appreciate Ortho evaluation Acute blood loss anemia likely postoperative: Hemoglobin 14.3 preoperatively, down to 11.3 postoperatively. We will continue to monitor. Patient with no chest pain or dizziness. Leukocytosis: Procalcitonin negative, likely secondary to steroid use perioperatively on the background of acute distress of surgery. Leukocytosis likely secondary to use of Decadron Doubt any infection Sinus tachycardia: Patient reports having intermittent tachycardia most likely associated with her anxiety, patient is on lorazepam twice a day at home. Patient reports she has been worked out as an outpatient and has not been started on any medication, she has had this sinus tachy for long time. Current triggering of her tachycardia could be due to her acute stress of surgery. Could be secondary to severe anxiety and withdrawal from antianxiety medications Likely secondary to anxiety Her alcohol level is less than 10 Remains tachycardic at 116 and will start oral thiamine and folic acid If tachycardia persist will get CTA to rule out pulmonary embolism Other chronic conditions: depression, anxiety, hypothyroidism --> continued w/ home meds as and when able. DVT PX: SCDs now, per primary. Full Code. Dispo: Pending Admission and Anticipated Discharge Date Admission Date: February 17, 2022 Subjective 02/24/2022 The patient was seen and examined in medical floor She has been stable during my examination this morning Left forearm she complains to have chest pain especially with inspiration Ultrasound of the legs did not show any DVTs Review of Systems Review of Systems: All systems reviewed and are unremarkable except as noted below Physical Exam Physical Exam: Sitting on bed with acute anxiety Constitutional: well developed, well nourished, + ill appearing and + obese Eyes: PERRL, conjunctivae normal, anicteric sclerae ENMT: external ear and nose normal, oropharynx normal Neck: trachea midline, no thyromegaly Respiratory: no respiratory distress Auscultation: lungs clear to auscultation bilaterally Cardiovascular: Rate/Rhythm: regular rate, regular rhythm and + tachycardic Heart Sounds: normal S1 and normal S2; no murmur Extremities: + edema (Trace edema bilaterally) Gastrointestinal (Abdomen): Inspection/Auscultation: normal bowel sounds; abdomen not distended Percussion/Palpation: abdomen soft; abdomen nontender Neurologic: moves all extremities and + confused Psychiatric: Orientation: alert and oriented to person Affect: + anxious affect and + labile affect Mood: + anxious mood Hallucinations: + visual hallucinations Insight: + limited insight Lymphatic: no cervical or axillary lymphadenopathy Results & Data Results & Data ([facility]) Vital Signs (Past 12 Hours) Vital Signs Temp Pulse Resp BP BP Pulse Ox O2 Del Method 02/24/22 12:41 36.8 C 116 H 18 148/96 H 95 Room Air 02/24/22 09:00 Room Air 02/24/22 08:02 37 C 110 H 16 158/99 H 94 Room Air Laboratory Results BMP 02/24/22 09:02 Sodium 137 Potassium 3.6 Chloride 102 Carbon Dioxide 25 BUN 10 Creatinine 0.50 L Glucose 95 Calcium 8.3 L Medications Administered Current Inpatient Medications Acetaminophen (Acetaminophen 500 Mg Tab) 1,000 mg PO Q8H PRN PRN Reason: MILD Pain Scale 1,2,3 & Pre PT Stop: 03/19/22 14:31 Last Admin: 02/24/22 09:06 Dose: 1,000 mg Al Hydrox/Mg Hydrox/Simethicone (Aluminum/Magnesium Susp 30 Ml Udc) 30 ml PO Q6H PRN PRN Reason: Dyspepsia Stop: 03/19/22 14:31 Bisacodyl (Bisacodyl 10 Mg Supp) 10 mg [place] DAILY PRN PRN Reason: Constipation Stop: 03/19/22 14:31 Bupropion HCl (Bupropion Xl 150 Mg Tabcr) 150 mg PO [facility] Stop: 03/20/22 08:59 Last Admin: 02/21/22 08:43 Dose: 150 mg Bupropion HCl (Bupropion Xl 300 Mg Tabcr) [facility] Stop: 03/20/22 08:59 Last Admin: 02/21/22 08:43 Dose: 300 mg Cetirizine HCl (Cetirizine Hcl 10 Mg Tablet) 10 mg PO DAILY PRN PRN Reason: Congestion Stop: 03/19/22 14:31 Diclofenac Sodium (Diclofenac Sod 1% Gel 100 Gm Tube) 2 gm EXT BID [facility]; Protocol Stop: 03/25/22 20:59 Last Admin: 02/24/22 08:56 Dose: 2 gm Diphenhydramine HCl (Diphenhydramine Capsule 25 Mg Cap) 25 mg PO Q6H PRN PRN Reason: Allergic Rhinitis/Insomnia Stop: 03/19/22 14:31 Enoxaparin Sodium (Enoxaparin Inj 40 Mg/0.4 Ml Syr) 40 mg SQ [facility] Stop: 03/26/22 09:44 Last Admin: 02/24/22 11:20 Dose: 40 mg Escitalopram Oxalate (Escitalopram Oxalate 20 Mg Tab) 20 mg PO [facility] Stop: 03/20/22 08:59 Last Admin: 02/21/22 08:43 Dose: 20 mg Famotidine (Famotidine 20 Mg Tab) 20 mg PO Q12H PRN PRN Reason: Dyspepsia Stop: 03/19/22 14:31 Fentanyl (Fentanyl 12 Mcg/Hr Tdsy) 12 mcg TD Q3D@0900 [facility] Stop: 03/09/22 00:29 Last Admin: 02/23/22 00:39 Dose: 12 mcg Fluticasone Propionate (Fluticasone Propionate Na Spr 16 Gm Btl) 1 sprays NA BID PRN PRN Reason: Congestion Stop: 03/19/22 15:18 Hydromorphone HCl (Hydromorphone Inj 0.5 Mg/0.5 Ml Syr) 0.5 mg IV Q3H PRN PRN Reason: MODERATE Pain (Scale 4,5,6) & Pre PT Stop: 03/03/22 14:31 Last Admin: 02/23/22 18:53 Dose: 0.5 mg Hydromorphone HCl (Hydromorphone Inj 1 Mg/Ml Syringe) 1 mg IV Q3H PRN PRN Reason: SEVERE Pain (Scale 7,8,9,10) Stop: 03/03/22 14:31 Last Admin: 02/24/22 02:30 Dose: 1 mg Hydroxyzine HCl (Hydroxyzine Hcl 25 Mg Tab) 25 mg PO Q8H PRN PRN Reason: Anxiety Stop: 03/19/22 14:31 Last Admin: 02/22/22 12:32 Dose: 25 mg Promethazine HCl 12.5 mg/ (Sodium Chloride) 50.5 mls @ 202 mls/hr IV Q6H PRN PRN Reason: Nausea &/or Vomiting Stop: 03/19/22 14:31 Sodium Chloride (Nss 1000ml) 1,000 mls @ 80 mls/hr IV .[id number] JUAN C Stop: 03/24/22 20:44 Last Admin: 02/24/22 11:23 Dose: 80 mls/hr Lorazepam 1 mg/ Syringe 1 mls @ 2 mls/min IV Q8H PRN PRN Reason: Sedation/Anxiety Stop: 03/19/22 14:31 Ketorolac Tromethamine (Ketorolac Tromethamine 15 Mg/Ml Vial) 15 mg IV Q6H PRN PRN Reason: Pain & Pre PT Stop: 03/01/22 10:01 Last Admin: 02/24/22 12:38 Dose: 15 mg Levonorgestrel (Levonorgestrel (Mirena) Iud) 1 each PV UD [facility] Stop: 03/22/22 14:14 Levothyroxine Sodium (Levothyroxine Sodium 50 Mcg Tablet) 50 mcg PO QAM [facility] Stop: 03/20/22 08:59 Last Admin: 02/24/22 07:41 Dose: 50 mcg Lorazepam (Lorazepam 1 Mg Tab) 1 mg PO BID [facility] Stop: 03/19/22 20:59 Last Admin: 02/24/22 09:06 Dose: 1 mg Lorazepam (Lorazepam 0.5 Mg Tab) 0.5 mg PO Q8H PRN PRN Reason: Sedation/Anxiety Stop: 03/19/22 14:31 Magnesium Hydroxide (Magnesium Hydroxide Susp 30 Ml Udc) 30 ml PO Q24H PRN PRN Reason: Constipation Stop: 03/19/22 14:31 Last Admin: 02/24/22 00:34 Dose: 30 ml Melatonin (Melatonin 3 Mg Tab) 6 mg PO HS [facility] Stop: 03/22/22 20:59 Last Admin: 02/23/22 21:28 Dose: 6 mg Metoclopramide HCl (Metoclopramide Hcl Inj 5 Mg/Ml 2 Ml Vial) 10 mg IV Q6H PRN PRN Reason: Nausea &/or Vomiting Stop: 03/19/22 14:31 Milnacipran HCl (Milnacipran Hcl 50mg) 1 each PO BID [facility] Stop: 03/24/22 10:29 Last Admin: 02/22/22 10:23 Dose: 1 each Miscellaneous (Check Fentanyl Patch Placement) 1 each N/A QS [facility] Stop: 03/19/22 15:59 Last Admin: 02/24/22 07:41 Dose: 1 each Miscellaneous (Fentanyl Patch Remove & Waste) 1 each N/A Q3D@0859 [facility] Stop: 03/25/22 00:28 Last Admin: 02/23/22 00:56 Dose: Not Given Naloxone HCl (Naloxone Hcl 0.4 Mg/1 Ml Vial/Carp) 0.1 mg IV Q5M PRN PRN Reason: Oversedation/Resp depression Stop: 03/19/22 14:31 Olanzapine (Olanzapine Zydis 5 Mg Orally Dis. Tab) 2.5 mg PO BID PRN PRN Reason: Anxiety/Agitation Stop: 03/26/22 08:59 Last Admin: 02/24/22 11:20 Dose: 2.5 mg Ondansetron HCl (Ondansetron Inj 2 Mg/Ml 2 Ml Vial) 4 mg IV Q6H PRN PRN Reason: Nausea &/or Vomiting Stop: 03/19/22 14:31 Ondansetron HCl (Ondansetron 4 Mg Od Tab) 4 mg PO Q6H PRN PRN Reason: Nausea Stop: 03/19/22 14:31 Last Admin: 02/24/22 12:08 Dose: 4 mg Oxycodone HCl (Oxycodone Hcl Ir 5 Mg Tab (Immediate Release)) 5 - 10 mg PO Q4H PRN PRN Reason: Pain & Pre PT Stop: 03/03/22 14:31 Last Admin: 02/22/22 01:21 Dose: 5 mg Pregabalin (Pregabalin 75 Mg Cap) 75 mg PO TID JUAN C Stop: 03/19/22 14:31 Last Admin: 02/24/22 13:38 Dose: 75 mg Rizatriptan Benzoate (Rizatriptan Benzoate Sed [employer] 10 Mg Tab) 10 mg PO UD PRN PRN Reason: Migraine Headache Stop: 03/22/22 14:14 Last Admin: 02/22/22 17:52 Dose: 10 mg Senna/Docusate Sodium (Docusate Sodium/Senna 50/8.6mg Tab) 2 tab PO HS JUAN C Stop: 03/19/22 20:59 Last Admin: 02/23/22 21:28 Dose: 2 tab Sodium Biphosphate/Sodium Phosphate (Sod Phosphate/Sod Biphosphate Enema 132 Ml Btl) 132 ml [place] ONE PRN PRN Reason: Constipation Stop: 03/19/22 14:31 Tramadol HCl (Tramadol Hcl 50 Mg Tablet) 50 - 100 mg PO Q4H PRN PRN Reason: Moderate-Severe pain & Pre PT Stop: 03/19/22 14:31 Last Admin: 02/24/22 07:53 Dose: 50 mg
[2022-02-24] MEDS: oxyCODONE HCL IR 5 MG TAB (IMMEDIATE RELEASE) PO PRN (19:46)
[2022-02-24] MEDS: MELATONIN 3 MG TAB PO SCH (20:38)
[2022-02-24] MEDS: DOCUSATE SODIUM/SENNA 50/8.6MG TAB PO SCH (20:38)
[2022-02-25] MEDS: oxyCODONE HCL IR 5 MG TAB (IMMEDIATE RELEASE) PO PRN ×4 (04:12→20:03)
[2022-02-25] MEDS: CHECK fentaNYL PATCH PLACEMENT SCH ×3 (07:56→23:08)
[2022-02-25] MEDS: LEVOTHYROXINE SODIUM 50 MCG TABLET PO SCH (07:57)
[2022-02-25] MEDS: KETOROLAC TROMETHAMINE 15 MG/ML VIAL IV PRN (08:11)
--- NOTE | 2022-02-25 08:20 | Orthopedic Progress Note ---
Date of Service February 25, 2022 Assessment & Plan (1) Neurogenic claudication due to lumbar spinal stenosis: Plan: At this time I would encourage her to continue with physical therapy. X-rays are stable without change. We will await medical clearance before discharge home. Admission and Anticipated Discharge Date Admission Date: February 17, 2022 Subjective Patient's pain is improved today. Physical Exam Physical Exam: On exam she is up and ambulating. She appears comfortable. Results & Data ([facility]) Vital Signs (Past 12 Hours) Vital Signs Temp Pulse Resp BP Pulse Ox O2 Del Method 02/25/22 07:32 37.1 C 112 H 16 136/96 93 Room Air 02/24/22 22:16 37.3 C 111 H 18 143/85 H 96 Room Air
[2022-02-25] MEDS: PREGABALIN 75 MG CAP PO SCH ×3 (09:16→20:03)
[2022-02-25] MEDS: DICLOFENAC SOD 1% GEL 100 GM TUBE EXT SCH ×2 (09:16→20:04)
[2022-02-25] MEDS: LORazepam 1 MG TAB PO SCH ×2 (09:16→20:03)
[2022-02-25] MEDS: ENOXAPARIN INJ 40 MG/0.4 ML SYR SQ SCH (09:16)
--- NOTE | 2022-02-25 10:55 | Electrocardiogram Report ---
Test Reason : Blood Pressure : / mmHG Vent. Rate : 125 BPM Atrial Rate : 125 BPM P-R Int : 112 ms QRS Dur : 062 ms QT Int : 318 ms P-R-T Axes : 042 037 030 degrees QTc Int : 458 ms Sinus tachycardia Possible Old Septal infarct Diffuse Minor Nonspecific ST and T wave abnormality Abnormal ECG When compared with ECG of 19-FEB-2022 10:04, Borderline criteria for Septal infarct is now Present Nonspecific T wave abnormality, improved in Lateral leads Confirmed by Abdelrahman Tariq ([id number] on 02/25/2022 10:55:14 AM Referred By: Darien Acosta Confirmed By:Abdelrahman Tariq
[2022-02-25] MEDS: SODIUM CHLORIDE 0.9% 1000ML 1,000 ML IV SCH (11:26)
[2022-02-25] MEDS: THIAMINE HCL 50 MG TABLET PO SCH (11:35)
[2022-02-25] MEDS: FOLIC ACID 400 MCG TAB PO SCH (11:35)
--- NOTE | 2022-02-25 13:07 | Hospitalist Progress Note ---
Date of Service February 25, 2022 Assessment & Plan (1) Neurogenic claudication due to lumbar spinal stenosis: (2) Delirium: Plan: Acute delirium following surgery Associated with Hallucinations: Pt w/ hallucinations since yesterday morning 1 , Complicated by psychiatric/meds/post op status/hospitalization. d/w psychiatry in am, no improvement, psychiatry consulted. Antipsychotic medications were on hold Appreciate psychiatric input and recommended Was given Ativan 1 mg p.o. at around noon and will be continued twice daily as before Will await further evaluation by the psychiatrist for other medications to be administered She was reassured in presence of the Her anxiety is much improved today and she is hoping to go home on Sunday Complains to have chest pain EKG remained unremarkable No desaturation If remains tachycardic will get CTA rule out pulmonary embolism No more chest pain but has minimal back pain and that is expected from recent surgery Plan Neurogenic claudication due to lumbar spinal stenosis S/p Lumbar L4-L5, L5-S1 decompression and fusion on 02/17/22 Likely postoperative delirium: calm and cooperative, but with hallucination. likely complicated by steroid use and other meds. delirium precautions, ensure good night sleep. Patient reports improvement in her radicular symptoms. Pt reports better pain control, appears comfortable. PT/OT, DVT Px and Pain Mx per orthospine. Encourage incentive spirometer. Labs in AM. Complains of low back pain-diclofenac sodium was applied and advised to have moist hot compression Repeat x-ray of the lumbar spine did not show any significant changes except changes due to recent surgery Has been getting physical therapy and likely to be discharged home Acute blood loss anemia likely postoperative: Hemoglobin 14.3 preoperatively, down to 11.3 postoperatively. We will continue to monitor. Patient with no chest pain or dizziness. Leukocytosis: Procalcitonin negative, likely secondary to steroid use perioperatively on the background of acute distress of surgery. Leukocytosis likely secondary to use of Decadron Doubt any infection Sinus tachycardia: Patient reports having intermittent tachycardia most likely associated with her anxiety, patient is on lorazepam twice a day at home. Patient reports she has been worked out as an outpatient and has not been started on any medication, she has had this sinus tachy for long time. Current triggering of her tachycardia could be due to her acute stress of surgery. Could be secondary to severe anxiety and withdrawal from antianxiety medications Likely secondary to anxiety Her alcohol level is less than 10 Remains tachycardic at 116 and will start oral thiamine and folic acid If tachycardia persist will get CTA to rule out pulmonary embolism Doubt any pulmonary embolism Sinus tachycardia seems to be chronic Other chronic conditions: depression, anxiety, hypothyroidism --> continued w/ home meds as and when able. DVT PX: SCDs now, per primary. Full Code. Dispo: Pending Admission and Anticipated Discharge Date Admission Date: February 17, 2022 Subjective 02/24/2022 The patient was seen and examined in medical floor She has been stable during my examination this morning Left forearm she complains to have chest pain especially with inspiration Ultrasound of the legs did not show any DVTs 02/25/2022 Patient was seen and examined in medical floor Today is one of her best days in the hospital She has been participating in physical therapy without any significant issues Remains minimally tachycardic which has been ongoing without any symptoms Denies any significant symptoms and the pain is controlled Review of Systems Review of Systems: All systems reviewed and are unremarkable except as noted below Physical Exam Physical Exam: Sitting at the edge of the bed without any acute anxiety Constitutional: well developed, well nourished, + ill appearing and + obese Eyes: PERRL, conjunctivae normal, anicteric sclerae ENMT: external ear and nose normal, oropharynx normal Neck: trachea midline, no thyromegaly Respiratory: no respiratory distress Auscultation: lungs clear to auscul tation bilaterally Cardiovascular: Rate/Rhythm: regular rate, regular rhythm and + tachycardic Heart Sounds: normal S1 and normal S2; no murmur Extremities: + edema (Trace edema bilaterally) Gastrointestinal (Abdomen): Inspection/Auscultation: normal bowel sounds; abdomen not distended Percussion/Palpation: abdomen soft; abdomen nontender Neurologic: moves all extremities and + confused Psychiatric: Orientation: alert and oriented to person Affect: + anxious affect and + labile affect Mood: + anxious mood Hallucinations: + visual hallucinations Insight: + limited insight Lymphatic: no cervical or axillary lymphadenopathy Results & Data Results & Data ([facility]) Vital Signs (Past 12 Hours) Vital Signs Temp Pulse Resp BP Pulse Ox O2 Del Method 02/25/22 07:32 37.1 C 112 H 16 136/96 93 Room Air Medications Administered Current Inpatient Medications Acetaminophen (Acetaminophen 500 Mg Tab) 1,000 mg PO Q8H PRN PRN Reason: MILD Pain Scale 1,2,3 & Pre PT Stop: 03/19/22 14:31 Last Admin: 02/24/22 09:06 Dose: 1,000 mg Al Hydrox/Mg Hydrox/Simethicone (Aluminum/Magnesium Susp 30 Ml Udc) 30 ml PO Q6H PRN PRN Reason: Dyspepsia Stop: 03/19/22 14:31 Bisacodyl (Bisacodyl 10 Mg Supp) 10 mg [place] DAILY PRN PRN Reason: Constipation Stop: 03/19/22 14:31 Bupropion HCl (Bupropion Xl 150 Mg Tabcr) 150 mg PO [facility] Stop: 03/20/22 08:59 Last Admin: 02/21/22 08:43 Dose: 150 mg Bupropion HCl (Bupropion Xl 300 Mg Tabcr) 300 mg PO [facility] Stop: 03/20/22 08:59 Last Admin: 02/21/22 08:43 Dose: 300 mg Cetirizine HCl (Cetirizine Hcl 10 Mg Tablet) 10 mg PO DAILY PRN PRN Reason: Congestion Stop: 03/19/22 14:31 Diclofenac Sodium (Diclofenac Sod 1% Gel 100 Gm Tube) 2 gm EXT BID [facility]; Protocol Stop: 03/25/22 20:59 Last Admin: 02/25/22 09:16 Dose: 2 gm Diphenhydramine HCl (Diphenhydramine Capsule 25 Mg Cap) 25 mg PO Q6H PRN PRN Reason: Allergic Rhinitis/Insomnia Stop: 03/19/22 14:31 Enoxaparin Sodium (Enoxaparin Inj 40 Mg/0.4 Ml Syr) 40 mg SQ [facility] Stop: 03/26/22 09:44 Last Admin: 02/25/22 09:16 Dose: 40 mg Escitalopram Oxalate (Escitalopram Oxalate 20 Mg Tab) [facility] Stop: 03/20/22 08:59 Last Admin: 02/21/22 08:43 Dose: 20 mg Famotidine (Famotidine 20 Mg Tab) 20 mg PO Q12H PRN PRN Reason: Dyspepsia Stop: 03/19/22 14:31 Fentanyl (Fentanyl 12 Mcg/Hr Tdsy) 12 mcg TD Q3D@0900 [facility] Stop: 03/09/22 00:29 Last Admin: 02/23/22 00:39 Dose: 12 mcg Fluticasone Propionate (Fluticasone Propionate Na Spr 16 Gm Btl) 1 sprays NA BID PRN PRN Reason: Congestion Stop: 03/19/22 15:18 Folic Acid (Folic Acid 400 Mcg Tab) 400 mcg PO QAM [facility] Stop: 03/27/22 10:14 Last Admin: 02/25/22 11:35 Dose: 400 mcg Hydromorphone HCl (Hydromorphone Inj 0.5 Mg/0.5 Ml Syr) 0.5 mg IV Q3H PRN PRN Reason: MODERATE Pain (Scale 4,5,6) & Pre PT Stop: 03/03/22 14:31 Last Admin: 02/23/22 18:53 Dose: 0.5 mg Hydromorphone HCl (Hydromorphone Inj 1 Mg/Ml Syringe) 1 mg IV Q3H PRN PRN Reason: SEVERE Pain (Scale 7,8,9,10) Stop: 03/03/22 14:31 Last Admin: 02/24/22 02:30 Dose: 1 mg Hydroxyzine HCl (Hydroxyzine Hcl 25 Mg Tab) 25 mg PO Q8H PRN PRN Reason: Anxiety Stop: 03/19/22 14:31 Last Admin: 02/22/22 12:32 Dose: 25 mg Promethazine HCl 12.5 mg/ (Sodium Chloride) 50.5 mls @ 202 mls/hr IV Q6H PRN PRN Reason: Nausea &/or Vomiting Stop: 03/19/22 14:31 Lorazepam 1 mg/ Syringe 1 mls @ 2 mls/min IV Q8H PRN PRN Reason: Sedation/Anxiety Stop: 03/19/22 14:31 Ketorolac Tromethamine (Ketorolac Tromethamine 15 Mg/Ml Vial) 15 mg IV Q6H PRN PRN Reason: Pain & Pre PT Stop: 03/01/22 10:01 Last Admin: 02/25/22 08:11 Dose: 15 mg Levonorgestrel (Levonorgestrel (Mirena) Iud) 1 each PV UD [facility] Stop: 03/22/22 14:14 Levothyroxine Sodium (Levothyroxine Sodium 50 Mcg Tablet) [facility] [place] Stop: 03/20/22 08:59 Last Admin: 02/25/22 07:57 Dose: 50 mcg Lorazepam (Lorazepam 1 Mg Tab) 1 mg PO BID [facility] Stop: 03/19/22 20:59 Last Admin: 02/25/22 09:16 Dose: 1 mg Lorazepam (Lorazepam 0.5 Mg Tab) 0.5 mg PO Q8H PRN PRN Reason: Sedation/Anxiety Stop: 03/19/22 14:31 Magnesium Hydroxide (Magnesium Hydroxide Susp 30 Ml Udc) 30 ml PO Q24H PRN PRN Reason: Constipation Stop: 03/19/22 14:31 Last Admin: 02/24/22 00:34 Dose: 30 ml Melatonin (Melatonin 3 Mg Tab) 6 mg PO HS [facility] Stop: 03/22/22 20:59 Last Admin: 02/24/22 20:38 Dose: 6 mg Metoclopramide HCl (Metoclopramide Hcl Inj 5 Mg/Ml 2 Ml Vial) 10 mg IV Q6H PRN PRN Reason: Nausea &/or Vomiting Stop: 03/19/22 14:31 Milnacipran HCl (Milnacipran Hcl 50mg) 1 each PO BID [facility] Stop: 03/24/22 10:29 Last Admin: 02/22/22 10:23 Dose: 1 each Miscellaneous (Check Fentanyl Patch Placement) 1 each N/A QS [facility] Stop: 03/19/22 15:59 Last Admin: 02/25/22 07:56 Dose: 1 each Miscellaneous (Fentanyl Patch Remove & Waste) 1 each N/A Q3D@0859 [facility] Stop: 03/25/22 00:28 Last Admin: 02/23/22 00:56 Dose: Not Given Naloxone HCl (Naloxone Hcl 0.4 Mg/1 Ml Vial/Carp) 0.1 mg IV Q5M PRN PRN Reason: Oversedation/Resp depression Stop: 03/19/22 14:31 Olanzapine (Olanzapine Zydis 5 Mg Orally Dis. Tab) 2.5 mg PO BID PRN PRN Reason: Anxiety/Agitation Stop: 03/26/22 08:59 Last Admin: 02/24/22 11:20 Dose: 2.5 mg Ondansetron HCl (Ondansetron Inj 2 Mg/Ml 2 Ml Vial) 4 mg IV Q6H PRN PRN Reason: Nausea &/or Vomiting Stop: 03/19/22 14:31 Ondansetron HCl (Ondansetron 4 Mg Od Tab) 4 mg PO Q6H PRN PRN Reason: Nausea Stop: 03/19/22 14:31 Last Admin: 02/24/22 12:08 Dose: 4 mg Oxycodone HCl (Oxycodone Hcl Ir 5 Mg Tab (Immediate Release)) 5 - 10 mg PO Q4H PRN PRN Reason: Pain & Pre PT Stop: 03/03/22 14:31 Last Admin: 02/25/22 10:40 Dose: 10 mg Pregabalin (Pregabalin 75 Mg Cap) 75 mg PO TID [facility] Stop: 03/19/22 14:31 Last Admin: 02/25/22 09:16 Dose: 75 mg Rizatriptan Benzoate (Rizatriptan Benzoate [employer] 10 Mg Tab) 10 mg PO UD PRN PRN Reason: Migraine Headache Stop: 03/22/22 14:14 Last Admin: 02/22/22 17:52 Dose: 10 mg Senna/Docusate Sodium (Docusate Sodium/Senna 50/8.6mg Tab) 2 tab PO HS [facility] Stop: 03/19/22 20:59 Last Admin: 02/24/22 20:38 Dose: Not Given Sodium Biphosphate/Sodium Phosphate (Sod Phosphate/Sod Biphosphate Enema 132 Ml Btl) 132 ml [place] ONE PRN PRN Reason: Constipation Stop: 03/19/22 14:31 Thiamine HCl (Thiamine Hcl 50 Mg Tablet) 50 mg PO QAM [facility] Stop: 03/27/22 10:14 Last Admin: 02/25/22 11:35 Dose: 50 mg Tramadol HCl (Tramadol Hcl 50 Mg Tablet) 50 - 100 mg PO Q4H PRN PRN Reason: Moderate-Severe pain & Pre PT Stop: 03/19/22 14:31 Last Admin: 02/24/22 07:53 Dose: 50 mg
--- NOTE | 2022-02-25 14:56 | Psychiatric Progress Note ---
Date of Service February 25, 2022 Impression / Recommendations Impression 51 yo female with a history of non specific depression/anxiety, multiple meds due to fibro and spine issues with post op delirium, significant polypharmacy. Diagnostically consistent with post-operative delirium and history of such with surgery many years ago. Encouragingly has improved significantly today, fully oriented, improved insight and judgment and attention intact. If persists Reviewed options related to restarting her escitalopram and Wellbutrin which she would like to do. Discussed risks, benefits and alternatives. Patient would like to start and consented to escitalopram for depression and anxiety. Reviewed side effects including but not limited to: GI, DICKINSON, sexual side effects. Reviewed risks of Wellbutrin, including dopamine effects exacerbating delirium and recommendation to not re-titrate this until one week of stability which she agrees to. Reviewed risks of ativan, including need to avoid use with alcohol due to potential for fatal respiratory depression, which she states understa nding of and agrees to avoid alcohol use with ativan. Reviewed risks of serotonin syndrome with Savella and recommendation to hold this until ongoing stability with [facility] and only after review with her outpatient psychiatrist and other providers which she agrees to do. No acute safety concerns at this time. (1) Delirium: Plan 02/25/22: Restart escitalopram 10mg qd tomorrow. -Escitalopram: can increase from 10mg daily to 20 mg daily after 3-5 days if cognition and mood remains stable. -Wellbutrin: can start Wellbutrin XL 150mg per day in 7-10 days if cognition and mood remains stable. After 5 days if stable and tolerating can increase dose to Wellbutrin XL 300mg daily. -Savella: do not restart until you have discussed this with your other providers and outpatient psychiatrist given concern that this can interact with your other medications Interval History Identifying Information 51 yo female seen for initial consult on 02/22/22 for postop delirium (likely multifactorial). Psychiatry consulted for recommendations for management. Chief Complaint "I feel so much better today". Review of Systems Notes stable sleep and appetite Subjective Subjective Patient was seen & assessed and interval progress reviewed. Patient seen with at bedside. Reports she feels much better today. Recalls experiencing similar confusion and change in behavior after surgery ~30 years ago. Apologetic for behaviors that occurred during delirium. Reviewed reasons why escitalopram and Wellbutrin were held due to delirium and discussed plan for restarting which she agrees with and feels comfortable with. Has next outpatient psychiatry appointment in late March. Procedures Performed Operation Date: 02/17/22 09:35 Actual Procedures p L4-S1 Decompression and Fusion, Spinal Cord Monitoring(Not Applicable) - Darien Acosta, DO Physical Exam Psychiatric Orientation: alert and oriented x 3 Apperance: appropriately groomed Eye Contact: good eye contact Motor Behavior: no abnormal motor movements Speech: normal rate/rhythm/volume of speech Affect: euthymic affect Mood: no depressed mood and no anxious mood Thought Process: goal directed thought process Thought Content: reality based without delusions Suicidal Thoughts: denies suicidal thoughts Homicidal Thoughts: denies homicidal thoughts Hallucinations: no auditory hallucinations and no visual hallucinations Cognition: recent memory grossly intact, remote memory grossly intact, attention grossly intact and language grossly intact Insight: good insight Judgement: good judgement Vital Signs (Past 24 Hours) Last Vital Signs Temp 37.1 C 02/25/22 07:32 Pulse 112 H 02/25/22 07:32 Resp 16 02/25/22 07:32 BP 136/96 02/25/22 07:32 Pulse Ox 93 02/25/22 07:32 O2 Del Method 02/25/22 07:32 O2 Flow Rate 2 02/17/22 17:02 Results & Data ([facility]) Current Inpatient Medications Current Inpatient Medications: Current Inpatient Medications Acetaminophen (Acetaminophen 500 Mg Tab) 1,000 mg PO Q8H PRN PRN Reason: MILD Pain Scale 1,2,3 & Pre PT Stop: 03/19/22 14:31 Last Admin: 02/24/22 09:06 Dose: 1,000 mg Al Hydrox/Mg Hydrox/Simethicone (Aluminum/Magnesium Susp 30 Ml Udc) 30 ml PO Q6H PRN PRN Reason: Dyspepsia Stop: 03/19/22 14:31 Bisacodyl (Bisacodyl 10 Mg Supp) 10 mg DC DAILY PRN PRN Reason: Constipation Stop: 03/19/22 14:31 Bupropion HCl (Bupropion Xl 150 Mg Tabcr) 150 mg PO QAM JUAN C Stop: 03/20/22 08:59 Last Admin: 02/21/22 08:43 Dose: 150 mg Bupropion HCl (Bupropion Xl 300 Mg Tabcr) 300 mg PO QAM JUAN C Stop: 03/20/22 08:59 Last Admin: 02/21/22 08:43 Dose: 300 mg Cetirizine HCl (Cetirizine Hcl 10 Mg Tablet) 10 mg PO DAILY PRN PRN Reason: Congestion Stop: 03/19/22 14:31 Diclofenac Sodium (Diclofenac Sod 1% Gel 100 Gm Tube) 2 gm EXT BID [facility]; Protocol Stop: 03/25/22 20:59 Last Admin: 02/25/22 09:16 Dose: 2 gm Diphenhydramine HCl (Diphenhydramine Capsule 25 Mg Cap) 25 mg PO Q6H PRN PRN Reason: Allergic Rhinitis/Insomnia Stop: 03/19/22 14:31 Enoxaparin Sodium (Enoxaparin Inj 40 Mg/0.4 Ml Syr) 40 mg SQ [facility] Stop: 03/26/22 09:44 Last Admin: 02/25/22 09:16 Dose: 40 mg Escitalopram Oxalate (Escitalopram Oxalate 20 Mg Tab) 20 mg PO [facility] Stop: 03/20/22 08:59 Last Admin: 02/21/22 08:43 Dose: 20 mg Famotidine (Famotidine 20 Mg Tab) 20 mg PO Q12H PRN PRN Reason: Dyspepsia Stop: 03/19/22 14:31 Fentanyl (Fentanyl 12 Mcg/Hr Tdsy) 12 mcg TD Q3D@0900 [facility] Stop: 03/09/22 00:29 Last Admin: 02/23/22 00:39 Dose: 12 mcg Fluticasone Propionate (Fluticasone Propionate Na Spr 16 Gm Btl) 1 sprays NA BID PRN PRN Reason: Congestion Stop: 03/19/22 15:18 Folic Acid (Folic Acid 400 Mcg Tab) 400 mcg PO [facility] Stop: 03/27/22 10:14 Last Admin: 02/25/22 11:35 Dose: 400 mcg Hydromorphone HCl (Hydromorphone Inj 0.5 Mg/0.5 Ml Syr) 0.5 mg IV Q3H PRN PRN Reason: MODERATE Pain (Scale 4,5,6) & Pre PT Stop: 03/03/22 14:31 Last Admin: 02/23/22 18:53 Dose: 0.5 mg Hydromorphone HCl (Hydromorphone Inj 1 Mg/Ml Syringe) 1 mg IV Q3H PRN PRN Reason: SEVERE Pain (Scale 7,8,9,10) Stop: 03/03/22 14:31 Last Admin: 02/24/22 02:30 Dose: 1 mg Hydroxyzine HCl (Hydroxyzine Hcl 25 Mg Tab) 25 mg PO Q8H PRN PRN Reason: Anxiety Stop: 03/19/22 14:31 Last Admin: 02/22/22 12:32 Dose: 25 mg Promethazine HCl 12.5 mg/ (Sodium Chloride) 50.5 mls @ 202 mls/hr IV Q6H PRN PRN Reason: Nausea &/or Vomiting Stop: 03/19/22 14:31 Lorazepam 1 mg/ Syringe 1 mls @ 2 mls/min IV Q8H PRN PRN Reason: Sedation/Anxiety Stop: 03/19/22 14:31 Ketorolac Tromethamine (Ketorolac Tromethamine 15 Mg/Ml Vial) 15 mg IV Q6H PRN PRN Reason: Pain & Pre PT Stop: 03/01/22 10:01 Last Admin: 02/25/22 08:11 Dose: 15 mg Levonorgestrel (Levonorgestrel (Mirena) Iud) 1 each PV UD [facility] C Stop: 03/22/22 14:14 Levothyroxine Sodium (Levothyroxine Sodium 50 Mcg Tablet) 50 mcg PO QAM [facility] Stop: 03/20/22 08:59 Last Admin: 02/25/22 07:57 Dose: 50 mcg Lorazepam (Lorazepam 1 Mg Tab) 1 mg PO BID [facility] C Stop: 03/19/22 20:59 Last Admin: 02/25/22 09:16 Dose: 1 mg Lorazepam (Lorazepam 0.5 Mg Tab) 0.5 mg PO Q8H PRN PRN Reason: Sedation/Anxiety Stop: 03/19/22 14:31 Magnesium Hydroxide (Magnesium Hydroxide Susp 30 Ml Udc) 30 ml PO Q24H PRN PRN Reason: Constipation Stop: 03/19/22 14:31 Last Admin: 02/24/22 00:34 Dose: 30 ml Melatonin (Melatonin 3 Mg Tab) 6 mg PO HS [facility] C Stop: 03/22/22 20:59 Last Admin: 02/24/22 20:38 Dose: 6 mg Metoclopramide HCl (Metoclopramide Hcl Inj 5 Mg/Ml 2 Ml Vial) 10 mg IV Q6H PRN PRN Reason: Nausea &/or Vomiting Stop: 03/19/22 14:31 Milnacipran HCl (Milnacipran Hcl 50mg) 1 each PO BID [facility] Stop: 03/24/22 10:29 Last Admin: 02/22/22 10:23 Dose: 1 each Miscellaneous (Check Fentanyl Patch Placement) 1 each N/A QS [facility] Stop: 03/19/22 15:59 Last Admin: 02/25/22 14:51 Dose: 1 each Miscellaneous (Fentanyl Patch Remove & Waste) 1 each N/A Q3D@0859 [facility] Stop: 03/25/22 00:28 Last Admin: 02/23/22 00:56 Dose: Not Given Naloxone HCl (Naloxone Hcl 0.4 Mg/1 Ml Vial/Carp) 0.1 mg IV Q5M PRN PRN Reason: Oversedation/Resp depression Stop: 03/19/22 14:31 Olanzapine (Olanzapine Zydis 5 Mg Orally Dis. Tab) 2.5 mg PO BID PRN PRN Reason: Anxiety/Agitation Stop: 03/26/22 08:59 Last Admin: 02/24/22 11:20 Dose: 2.5 mg Ondansetron HCl (Ondansetron Inj 2 Mg/Ml 2 Ml Vial) 4 mg IV Q6H PRN PRN Reason: Nausea &/or Vomiting Stop: 03/19/22 14:31 Ondansetron HCl (Ondansetron 4 Mg Od Tab) 4 mg PO Q6H PRN PRN Reason: Nausea Stop: 03/19/22 14:31 Last Admin: 02/24/22 12:08 Dose: 4 mg Oxycodone HCl (Oxycodone Hcl Ir 5 Mg Tab (Immediate Release)) 5 - 10 mg PO Q4H PRN PRN Reason: Pain & Pre PT Stop: 03/03/22 14:31 Last Admin: 02/25/22 10:40 Dose: 10 mg Pregabalin (Pregabalin 75 Mg Cap) 75 mg PO TID [facility] Stop: 03/19/22 14:31 Last Admin: 02/25/22 14:51 Dose: 75 mg Rizatriptan Benzoate (Rizatriptan Benzoate [employer] 10 Mg Tab) 10 mg PO UD PRN PRN Reason: Migraine Headache Stop: 03/22/22 14:14 Last Admin: 02/22/22 17:52 Dose: 10 mg Senna/Docusate Sodium (Docusate Sodium/Senna 50/8.6mg Tab) 2 tab PO HS [facility] Stop: 03/19/22 20:59 Last Admin: 02/24/22 20:38 Dose: Not Given Sodium Biphosphate/Sodium Phosphate (Sod Phosphate/Sod Biphosphate Enema 132 Ml Btl) 132 ml DC ONE PRN PRN Reason: Constipation Stop: 03/19/22 14:31 Thiamine HCl (Thiamine Hcl 50 Mg Tablet) 50 mg PO QAM [facility] Stop: 03/27/22 10:14 Last Admin: 02/25/22 11:35 Dose: 50 mg Tramadol HCl (Tramadol Hcl 50 Mg Tablet) 50 - 100 mg PO Q4H PRN PRN Reason: Moderate-Severe pain & Pre PT Stop: 03/19/22 14:31 Last Admin: 02/24/22 07:53 Dose: 50 mg
[2022-02-25] MEDS: MELATONIN 3 MG TAB PO SCH (20:03)
[2022-02-25] MEDS: DOCUSATE SODIUM/SENNA 50/8.6MG TAB PO SCH (20:04)
[2022-02-26 06:15] LABS: Basophils # (auto) 0.05 K/uL (0-0.2); Basophils % (auto) 0.5 %; Eosinophils # (auto) 0.24 K/uL (0-0.50); Eosinophils % (auto) 2.5 %; Hematocrit (blood only) 34.4 % (34.1-44.9); Hemoglobin 11.2 g/dl (12.0-16.0); Immature Granulocytes # (auto) 0.23 K/uL (0.00-0.02); Immature Granulocytes % (auto) 2.4 %; Lymphocytes # (auto) 2.33 K/uL (1.2-3.4); Lymphocytes % (auto) 23.9 %; Mean Corpuscular Hemoglobin 29.2 pg (25.0-34.0); Mean Corpuscular Hgb Conc 32.6 g/dL (32.0-36.0); Mean Corpuscular Volume 89.6 fL (80.0-100.0); Mean Platelet Volume 9.3 fL (9.4-12.3); Monocytes # (auto) 0.83 K/uL (0.24-0.82); Monocytes % (auto) 8.5 %; Neutrophils # (auto) 6.08 K/uL (1.4-6.5); Neutrophils % (auto) 62.2 %; Platelet Count 707 K/uL (130-400); RDW Coefficient of Variation 15.4 % (11.5-14.5); RDW Standard Deviation 50.3 fL (36.4-46.3); Red Blood Count 3.84 M/uL (3.93-5.22); White Blood Count 9.76 K/ul (4.8-10.8)
[2022-02-26 06:35] LABS: BUN Creatinine Ratio 19.2 (10-20); Creatinine Clr Calc Pharmacy 62.8 ml/min; Est GFR (African American) 112.1 ml/min; Est GFR (Non-African American) 96.7 ml/min; Magnesium 2.3 mg/dl (1.7-2.4); Potassium 3.7 mmol/L (3.5-5.1)
--- NOTE | 2022-02-26 08:17 | Orthopedic Progress Note ---
Date of Service February 26, 2022 Assessment & Plan (1) Neurogenic claudication due to lumbar spinal stenosis: Plan: Patient is postoperative day 9 status post lumbar decompression and instrumented fusion. She is orthopedically stable for discharge once deemed medically stable. I suspect this will be in the next day or 2. Continue ambulation. DVT prophylaxis is in the form teds and SCDs. Admission and Anticipated Discharge Date Admission Date: February 17, 2022 Paulo Dunbar is postoperative day 9 status post lumbar decompression and fusion. States she is feeling better today. She is anxious to return home. Still has some paresthesias in her feet but the radicular pain she had preoperatively is greatly improved. Review of Systems Review of Systems: All systems reviewed & are unremarkable except as noted in HPI & below Physical Exam Physical Exam: Alert and oriented x3 No acute distress Calf soft nontender bilateral Strength intact bilateral lower extremities Results & Data ([facility]) Vital Signs (Past 12 Hours) Vital Signs Temp Pulse Pulse Resp BP Pulse Ox O2 Del Method 02/26/22 07:55 36.5 C 88 12 130/80 92 Room Air 02/25/22 23:04 37.3 C 106 H 18 96/77 L 94
[2022-02-26] MEDS: fentaNYL 12 MCG/HR TDSY TD SCH (08:55)
[2022-02-26] MEDS: PREGABALIN 75 MG CAP PO SCH ×2 (08:58→13:53)
[2022-02-26] MEDS: LORazepam 1 MG TAB PO SCH (08:58)
[2022-02-26] MEDS: LEVOTHYROXINE SODIUM 50 MCG TABLET PO SCH (08:59)
[2022-02-26] MEDS: FOLIC ACID 400 MCG TAB PO SCH (08:59)
[2022-02-26] MEDS: THIAMINE HCL 50 MG TABLET PO SCH (08:59)
[2022-02-26] MEDS: CHECK fentaNYL PATCH PLACEMENT SCH (09:00)
[2022-02-26] MEDS: ENOXAPARIN INJ 40 MG/0.4 ML SYR SQ SCH (09:00)
[2022-02-26] MEDS ORDERED: ESCITALOPRAM OXALATE 10 MG TAB PO SCH (09:00)
[2022-02-26] MEDS: DICLOFENAC SOD 1% GEL 100 GM TUBE EXT SCH (09:00)
--- NOTE | 2022-02-26 11:06 | Hospitalist Progress Note ---
Date of Service February 26, 2022 Assessment & Plan (1) Neurogenic claudication due to lumbar spinal stenosis: (2) Delirium: Plan: Acute delirium following surgery Associated with Hallucinations: Pt w/ hallucinations since yesterday morning 1 , Complicated by psychiatric/meds/post op status/hospitalization. d/w psychiatry in am, no improvement, psychiatry consulted. Antipsychotic medications were on hold Appreciate psychiatric input and recommended Was given Ativan 1 mg p.o. at around noon and will be continued twice daily as before Will await further evaluation by the psychiatrist for other medications to be administered She was reassured in presence of the No more delirium and her anxiety seems to be well controlled Is cleared from psychiatry to go home Remains medically stable to be discharged Complains to have chest pain EKG remained unremarkable No desaturation If remains tachycardic will get CTA rule out pulmonary embolism No more chest pain but has minimal back pain and that is expected from recent surgery Plan Neurogenic claudication due to lumbar spinal stenosis S/p Lumbar L4-L5, L5-S1 decompression and fusion on 02/17/22 Likely postoperative delirium: calm and cooperative, but with hallucination. likely complicated by steroid use and other meds. delirium precautions, ensure good night sleep. Patient reports improvement in her radicular symptoms. Pt reports better pain control, appears comfortable. PT/OT, DVT Px and Pain Mx per orthospine. Encourage incentive spirometer. Labs in AM. Complains of low back pain-diclofenac sodium was applied and advised to have moist hot compression Repeat x-ray of the lumbar spine did not show any significant changes except changes due to recent surgery Has been getting physical therapy and likely to be discharged home Physical therapist recommended home Was seen by Ortho and was discharged home Acute blood loss anemia likely postoperative: Hemoglobin 14.3 preoperatively, down to 11.3 postoperatively. We will continue to monitor. Patient with no chest pain or dizziness. Leukocytosis: Procalcitonin negative, likely secondary to steroid use perioperatively on the background of acute distress of surgery. Leukocytosis likely secondary to use of Decadron Doubt any infection Sinus tachycardia: Patient reports having intermittent tachycardia most likely associated with her anxiety, patient is on lorazepam twice a day at home. Patient reports she has been worked out as an outpatient and has not been started on any medication, she has had this sinus tachy for long time. Current triggering of her tachycardia could be due to her acute stress of surgery. Could be secondary to severe anxiety and withdrawal from antianxiety medications Likely secondary to anxiety Her alcohol level is less than 10 Remains tachycardic at 116 and will start oral thiamine and folic acid If tachycardia persist will get CTA to rule out pulmonary embolism Doubt any pulmonary embolism Sinus tachycardia seems to be chronic No more tachycardia Other chronic conditions: depression, anxiety, hypothyroidism --> continued w/ home meds as and when able. DVT PX: SCDs now, per primary. Full Code. Dispo: Pending Admission and Anticipated Discharge Date Admission Date: February 17, 2022 Subjective 02/24/2022 The patient was seen and examined in medical floor She has been stable during my examination this morning Left forearm she complains to have chest pain especially with inspiration Ultrasound of the legs did not show any DVTs 02/25/2022 Patient was seen and examined in medical floor Today is one of her best days in the hospital She has been participating in physical therapy without any significant issues Remains minimally tachycardic which has been ongoing without any symptoms Denies any significant symptoms and the pain is controlled 02/26/2022 The patient was seen and examined in medical floor She is much stable for the last 2 days and denies any significant symptoms Has had physical therapy and recommended home Her psychiatric symptoms are controlled She will be discharged home this afternoon Review of Systems Review of Systems: All systems reviewed and are unremarkable except as noted below Physical Exam Physical Exam: Sitting at the edge of the bed without any anxiety Constitutional: well developed, well nourished, + ill appearing and + obese Eyes: PERRL, conjunctivae normal, anicteric sclerae ENMT: external ear and nose normal, oropharynx normal Neck: trachea midline, no thyromegaly Respiratory: no respiratory distress Auscultation: lungs clear to auscultation bilaterally Cardiovascular: Rate/Rhythm: regular rate, regular rhythm and + tachycardic Heart Sounds: normal S1 and normal S2; no murmur Extremities: + edema (Trace edema bilaterally) Gastrointestinal (Abdomen): Inspection/Auscultation: normal bowel sounds; abdomen not distended Percussion/Palpation: abdomen soft; abdomen nontender Musculoskeletal: No acute arthritis involving any joint. Minimal back pain Neurologic: moves all extremities and + confused Psychiatric: Orientation: alert and oriented to person Affect: + anxious affect and + labile affect Mood: + anxious mood Hallucinations: + visual hallucinations Insight: + limited insight Lymphatic: no cervical or axillary lymphadenopathy Results & Data Results & Data ([facility]) Vital Signs (Past 12 Hours) Vital Signs Temp Pulse Pulse Resp BP Pulse Ox O2 Del Method 02/26/22 07:55 36.5 C 88 12 130/80 92 Room Air 02/25/22 23:04 37.3 C 106 H 18 96/77 L 94 Laboratory Results Short CBC 02/26/22 Range/Units 06:00 WBC 9.76 (4.8-10.8) K/ul Hgb 11.2 L (12.0-16.0) g/dl Hct 34.4 (34.1-44.9) % Plt Count 707 H (130-400) K/uL BMP 02/26/22 06:00 Sodium 139 Potassium 3.7 Chloride 101 Carbon Dioxide 30 BUN 14 Creatinine 0.73 Glucose 121 H Calcium 9.0 Medications Administered Current Inpatient Medications Acetaminophen (Acetaminophen 500 Mg Tab) 1,000 mg PO Q8H PRN PRN Reason: MILD Pain Scale 1,2,3 & Pre PT Stop: 03/19/22 14:31 Last Admin: 02/24/22 09:06 Dose: 1,000 mg Al Hydrox/Mg Hydrox/Simethicone (Aluminum/Magnesium Susp 30 Ml Udc) 30 ml PO Q6H PRN PRN Reason: Dyspepsia Stop: 03/19/22 14:31 Bisacodyl (Bisacodyl 10 Mg Supp) 10 mg MA DAILY PRN PRN Reason: Constipation Stop: 03/19/22 14:31 Bupropion HCl (Bupropion Xl 150 Mg Tabcr) 150 mg PO QAM JUAN C Stop: 03/20/22 08:59 Last Admin: 02/21/22 08:43 Dose: 150 mg Bupropion HCl (Bupropion Xl 300 Mg Tabcr) 300 mg PO QAM JUAN C Stop: 03/20/22 08:59 Last Admin: 02/21/22 08:43 Dose: 300 mg Cetirizine HCl (Cetirizine Hcl 10 Mg Tablet) 10 mg PO DAILY PRN PRN Reason: Congestion Stop: 03/19/22 14:31 Diclofenac Sodium (Diclofenac Sod 1% Gel 100 Gm Tube) 2 gm EXT BID [facility]; Protocol Stop: 03/25/22 20:59 Last Admin: 02/26/22 09:00 Dose: 2 gm Diphenhydramine HCl (Diphenhydramine Capsule 25 Mg Cap) 25 mg PO Q6H PRN PRN Reason: Allergic Rhinitis/Insomnia Stop: 03/19/22 14:31 Enoxaparin Sodium (Enoxaparin Inj 40 Mg/0.4 Ml Syr) [facility] Stop: 03/26/22 09:44 Last Admin: 02/26/22 09:00 Dose: 40 mg Escitalopram Oxalate (Escitalopram Oxalate 10 Mg Tab) [facility] [place] Stop: 03/28/22 08:59 Famotidine (Famotidine 20 Mg Tab) 20 mg PO Q12H PRN PRN Reason: Dyspepsia Stop: 03/19/22 14:31 Fentanyl (Fentanyl 12 Mcg/Hr Tdsy) 12 mcg TD Q3D@0900 [facility] Stop: 03/09/22 00:29 Last Admin: 02/26/22 08:55 Dose: 12 mcg Fluticasone Propionate (Fluticasone Propionate Na Spr 16 Gm Btl) 1 sprays NA BID PRN PRN Reason: Congestion Stop: 03/19/22 15:18 Folic Acid (Folic Acid 400 Mcg Tab) [facility] [place] Stop: 03/27/22 10:14 Last Admin: 02/26/22 08:59 Dose: 400 mcg Hydromorphone HCl (Hydromorphone Inj 0.5 Mg/0.5 Ml Syr) 0.5 mg IV Q3H PRN PRN Reason: MODERATE Pain (Scale 4,5,6) & Pre PT Stop: 03/03/22 14:31 Last Admin: 02/23/22 18:53 Dose: 0.5 mg Hydromorphone HCl (Hydromorphone Inj 1 Mg/Ml Syringe) 1 mg IV Q3H PRN PRN Reason: SEVERE Pain (Scale 7,8,9,10) Stop: 03/03/22 14:31 Last Admin: 02/24/22 02:30 Dose: 1 mg Hydroxyzine HCl (Hydroxyzine Hcl 25 Mg Tab) 25 mg PO Q8H PRN PRN Reason: Anxiety Stop: 03/19/22 14:31 Last Admin: 02/22/22 12:32 Dose: 25 mg Promethazine HCl 12.5 mg/ (Sodium Chloride) 50.5 mls @ 202 mls/hr IV Q6H PRN PRN Reason: Nausea &/or Vomiting Stop: 03/19/22 14:31 Lorazepam 1 mg/ Syringe 1 mls @ 2 mls/min IV Q8H PRN PRN Reason: Sedation/Anxiety Stop: 03/19/22 14:31 Ketorolac Tromethamine (Ketorolac Tromethamine 15 Mg/Ml Vial) 15 mg IV Q6H PRN PRN Reason: Pain & Pre PT Stop: 03/01/22 10:01 Last Admin: 02/25/22 08:11 Dose: 15 mg Levonorgestrel (Levonorgestrel (Mirena) Iud) 1 each PV UD [facility] Stop: 03/22/22 14:14 Levothyroxine Sodium (Levothyroxine Sodium 50 Mcg Tablet) 50 mcg PO QAM [facility] Stop: 03/20/22 08:59 Last Admin: 02/26/22 08:59 Dose: 50 mcg Lorazepam (Lorazepam 1 Mg Tab) 1 mg PO BID [facility] Stop: 03/19/22 20:59 Last Admin: 02/26/22 08:58 Dose: 1 mg Lorazepam (Lorazepam 0.5 Mg Tab) 0.5 mg PO Q8H PRN PRN Reason: Sedation/Anxiety Stop: 03/19/22 14:31 Magnesium Hydroxide (Magnesium Hydroxide Susp 30 Ml Udc) 30 ml PO Q24H PRN PRN Reason: Constipation Stop: 03/19/22 14:31 Last Admin: 02/24/22 00:34 Dose: 30 ml Melatonin (Melatonin 3 Mg Tab) 6 mg PO HS [facility] Stop: 03/22/22 20:59 Last Admin: 02/25/22 20:03 Dose: 6 mg Metoclopramide HCl (Metoclopramide Hcl Inj 5 Mg/Ml 2 Ml Vial) 10 mg IV Q6H PRN PRN Reason: Nausea &/or Vomiting Stop: 03/19/22 14:31 Milnacipran HCl (Milnacipran Hcl 50mg) 1 each PO BID [facility] Stop: 03/24/22 10:29 Last Admin: 02/22/22 10:23 Dose: 1 each Miscellaneous (Check Fentanyl Patch Placement) 1 each N/A QS [facility] Stop: 03/19/22 15:59 Last Admin: 02/26/22 09:00 Dose: 1 each Miscellaneous (Fentanyl Patch Remove & Waste) 1 each N/A Q3D@0859 [facility] Stop: 03/25/22 00:28 Last Admin: 02/26/22 09:12 Dose: 1 each Naloxone HCl (Naloxone Hcl 0.4 Mg/1 Ml Vial/Carp) 0.1 mg IV Q5M PRN PRN Reason: Oversedation/Resp depression Stop: 03/19/22 14:31 Olanzapine (Olanzapine Zydis 5 Mg Orally Dis. Tab) 2.5 mg PO BID PRN PRN Reason: Anxiety/Agitation Stop: 03/26/22 08:59 Last Admin: 02/24/22 11:20 Dose: 2.5 mg Ondansetron HCl (Ondansetron Inj 2 Mg/Ml 2 Ml Vial) 4 mg IV Q6H PRN PRN Reason: Nausea &/or Vomiting Stop: 03/19/22 14:31 Ondansetron HCl (Ondansetron 4 Mg Od Tab) 4 mg PO Q6H PRN PRN Reason: Nausea Stop: 03/19/22 14:31 Last Admin: 02/24/22 12:08 Dose: 4 mg Oxycodone HCl (Oxycodone Hcl Ir 5 Mg Tab (Immediate Release)) 5 - 10 mg PO Q4H PRN PRN Reason: Pain & Pre PT Stop: 03/03/22 14:31 Last Admin: 02/25/22 20:03 Dose: 10 mg Pregabalin (Pregabalin 75 Mg Cap) 75 mg PO TID [facility] Stop: 03/19/22 14:31 Last Admin: 02/26/22 08:58 Dose: 75 mg Rizatriptan Benzoate (Rizatriptan Benzoate Balancer Scale 10 Mg Tab) 10 mg PO UD PRN PRN Reason: Migraine Headache Stop: 03/22/22 14:14 Last Admin: 02/22/22 17:52 Dose: 10 mg Senna/Docusate Sodium (Docusate Sodium/Senna 50/8.6mg Tab) 2 tab PO HS [facility] Stop: 03/19/22 20:59 Last Admin: 02/25/22 20:04 Dose: 2 tab Sodium Biphosphate/Sodium Phosphate (Sod Phosphate/Sod Biphosphate Enema 132 Ml Btl) 132 ml MA ONE PRN PRN Reason: Constipation Stop: 03/19/22 14:31 Thiamine HCl (Thiamine Hcl 50 Mg Tablet) 50 mg PO QAM [facility] Stop: 03/27/22 10:14 Last Admin: 02/26/22 08:59 Dose: 50 mg Tramadol HCl (Tramadol Hcl 50 Mg Tablet) 50 - 100 mg PO Q4H PRN PRN Reason: Moderate-Severe pain & Pre PT Stop: 03/19/22 14:31 Last Admin: 02/24/22 07:53 Dose: 50 mg
[2022-02-26] MEDS: KETOROLAC TROMETHAMINE 15 MG/ML VIAL IV PRN (13:45)
== END 2022-02-26 14:53 | disposition home or self-care (01) | DRG 454 ==
LOC: ASU 07:27 → 3N 12:32

== ENCOUNTER 2022-11-17 08:20 | Inpatient (IN) ==
--- NOTE | 2022-09-08 16:09 | PAT Medication Instructions ---
Medication Instructions Date of Service September 08, 2022 Home Medications Medication Instructions Recorded folic acid 400 mcg tablet 400 mcg PO QAM #30 tabs 02/26/22 escitalopram oxalate 20 mg tablet (Lexapro) 20 mg PO QAM fentanyl 12 mcg/hr transdermal patch 1 patch transdermal Q72H levonorgestrel 21 mcg/24 hours (8 yrs) 52 mg intrauterine device (Mirena) 20 mcg intrauterine DIRECTED levothyroxine 50 mcg tablet (Synthroid) 50 mcg PO 5XWK lorazepam 1 mg tablet 1 mg PO TID PRN Anxiety pregabalin 75 mg capsule 75 mg PO TID folic acid 400 mcg tablet 400 mcg PO QAM benztropine 1 mg tablet 1 mg PO QPM buspirone 5 mg tablet 5 mg PO TID cyanocobalamin (vitamin B-12) 1,000 mcg tablet,extended release (Vitamin B-12 ER) 1,000 mcg PO QAM cyclobenzaprine 10 mg tablet 10 mg PO TID PRN Pain furosemide 20 mg tablet 20 mg PO QAM levothyroxine 50 mcg tablet 25 mcg PO 2XWK olanzapine 20 mg tablet 20 mg PO HS pantoprazole 40 mg tablet,delayed release 40 mg PO QAM prazosin 2 mg capsule 2 mg PO HS ropinirole 0.5 mg tablet 0.5 mg PO HS thiamine HCl (vitamin B1) 100 mg tablet (Vitamin B-1) 100 mg PO QAM Continue as directed fentanyl 12 mcg/hr transdermal patch 1 patch transdermal Q72H (avoid placement near surgery site) levonorgestrel 21 mcg/24 hours (8 yrs) 52 mg intrauterine device (Mirena) 20 mcg intrauterine DIRECTED DO NOT take the morning of surgery folic acid 400 mcg tablet 400 mcg PO QAM cyanocobalamin (vitamin B-12) 1,000 mcg tablet,extended release (Vitamin B-12 ER) 1,000 mcg PO QAM cyclobenzaprine 10 mg tablet 10 mg PO TID PRN Pain furosemide 20 mg tablet 20 mg PO QAM thiamine HCl (vitamin B1) 100 mg tablet (Vitamin B-1) 100 mg PO QAM Take morning of surgery With a small sip of water, OTHERWISE NOTHING TO EAT OR DRINK AFTER MIDNIGHT: escitalopram oxalate 20 mg tablet (Lexapro) 20 mg PO QAM lorazepam 1 mg tablet 1 mg PO TID PRN Anxiety (if needed) pregabalin 75 mg capsule 75 mg PO TID buspirone 5 mg tablet 5 mg PO TID levothyroxine pantoprazole 40 mg tablet,delayed release 40 mg PO QAM Take evening before surgery lorazepam 1 mg tablet 1 mg PO TID PRN Anxiety (if needed) pregabalin 75 mg capsule 75 mg PO TID benztropine 1 mg tablet 1 mg PO QPM buspirone 5 mg tablet 5 mg PO TID cyclobenzaprine 10 mg tablet 10 mg PO TID PRN Pain (if needed) olanzapine 20 mg tablet 20 mg PO HS prazosin 2 mg capsule 2 mg PO HS ropinirole 0.5 mg tablet 0.5 mg PO HS Other Notes If you have any questions please call us at [phone] or [phone] or [phone] or [phone]
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
[~2022-11-17 08:20] MED LIST changes: -ceFAZolin 1000MG 1,000 MG/7.5 ML SYR IV SCH; +ceFAZolin 2000MG 2,000 MG/15 ML SYR IV SCH
[2022-11-17] MEDS ORDERED: ePHEDrine sulfate 50 MG/ML AMP IV PRN (09:49)
[2022-11-17] MEDS ORDERED: ONDANSETRON INJ 2 MG/ML 2 ML VIAL IV PRN ×2 (09:49→14:52)
[2022-11-17] MEDS ORDERED: ATROPINE SULFATE 0.1 MG/ML 10ML SYR IV PRN (09:49)
--- NOTE | 2022-11-17 10:12 | History & Physical Bridge Note ---
Date of Service November 17, 2022 History & Physical Bridge Note I have examined the patient, reviewed the History & Physical and in the interval since the performance of the History & Physical I have noted the following changes of clinical significance: no changes noted
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
[2022-11-17] MEDS ORDERED: GENTAMICIN SULFATE 40 MG/ML 2 ML VIAL ONE (10:31)
[2022-11-17] MEDS ORDERED: VANCOMYCIN HCL 1000MG/20ML VIAL ONE (10:31)
[2022-11-17] MEDS ORDERED: ceFAZolin 330 MG/ML 1 GM VIAL ONE (10:31)
[2022-11-17] MEDS ORDERED: BUPIVACAINE/EPINEPHRINE 0.25% 1:200,000 30 ML VIAL ONE (10:31)
[2022-11-17] MEDS ORDERED: MIDAZOLAM HCL 1 MG/ML 2ML VIAL ONE (10:43)
[2022-11-17] MEDS ORDERED: fentaNYL citrate PF 100 MCG/2 ML VIAL ONE (10:43)
[2022-11-17] MEDS ORDERED: IOPAMIDOL INJ 61% 15 ML VIAL INSTIL ONE (11:53)
[2022-11-17] MEDS ORDERED: FLOSEAL HEMOSTATIC MATRIX 10ML TOP ONE (11:53)
[2022-11-17] MEDS ORDERED: DEXAMETHASONE SOD INJ 4 MG/ML VIAL ONE (12:07)
[2022-11-17] MEDS ORDERED: ROCURONIUM BROMIDE 10 MG/ML 5 ML VIAL IV ONE ×2 (12:07)
[2022-11-17] MEDS ORDERED: LIDOCAINE 2% 2 ML VIAL/AMP(20MG/ML) INFIL ONE (12:07)
[2022-11-17] MEDS ORDERED: ONDANSETRON INJ 2 MG/ML 2 ML VIAL ONE (12:07)
[2022-11-17] MEDS ORDERED: PROPOFOL IV EMULSION 10 MG/ML 20 ML VIAL IV ONE (12:07)
--- NOTE | 2022-11-17 12:54 | Operative Report ---
Post Operative Report Pre & Post Diagnosis Operation Date: 11/17/22 10:05 Pre-Op Diagnosis: Neurogenic claudication due to lumbar spinal stenosis, L4-S1 Post-Op Diagnosis: Neurogenic claudication due to lumbar spinal stenosis, L4-S1 Failed lumbar fusion L4-L5 L5-S1 I identified the patient and participated in the time-out.: Yes Procedure Operation Date: 11/17/22 10:05 Actual Procedures #1 removal of posterior instrumentation L4-S1. #2 exploration of fusion L5-S1. #3 revision decompression L5-S1. #4 revision posterior spinal fusion L4-L5 L5-S1. #5 placement posterior instrumentation L4-S1. #6 placement of infuse collagen sponge, master graft in the posterior gutters L4-S1. Surgeon Darien Acosta, DO Marine Equipment Sales Engineer Guillermo Leonard Estimated Blood Loss 50 Findings Consistent with Post-Op Diagnosis Specimens Cultures of the posterior lumbar spine Indications This is a 52-year-old female well-known to me that status post lumbar decompression fusion. She had worsening back pain throughout the postoperative course imaging demonstrates possible loosening of instrumentation and nonunion of the fusion is here for exploration and revision. Description of Procedure Patient met with identified informed sent obtained. Patient was then taken to the operative suite underwent a patient placed in a prone position is acceptable with an frame. All bony promises well-padded eyes inspected to ensure no external pressure placed upon the. This point lumbar spine was prepped and draped in a sterile fashion. Sharp dissection with the assistance of Bovie cautery to form down to and exposing the instrumentation and lateral recesses of the lumbar spine from L4-S1. In May move the hardware bilaterally. Noting marked loosening of the L4 and S1 pedicle screws bilaterally. The bone graft appear to be markedly mature and lack of solid fusion. I removed all previous bone graft exposed the transverse processes of L4-5 and the sacral ala. A revision decompression of L5-S1 was performed and incidental durotomy noted. The durotomy was primary repaired with interrupted Nurolon and DuraGen patch. Cement was then placed within the pedicle screws of L4 and S1 bilaterally with the assistance of fluoroscopy and new screws inserted with fluoroscopic visualization. Appropriate sized heather was then locked into place bilaterally. Transverse processes of L4-5 and the [place] were burred to subcortical bleeding bone and infuse collagen sponge, master graft was placed in the posterior gutters. I did place Stimulan beads impregnated with vancomycin and gentamicin throughout the incision. A 15 round MARY drain inserted. The incision was then closed with 1 Vicryl the fascia 2-0 Vicryl subcutaneously and 4 Monocryl for final closure. Steri-Strips dressings placed. Patient will patient awakened taken to PACU stable condition. Please note spinal cord monitoring visualized at the procedure no changes noted. Lastly Guillermo Leonard was present at the entire surgery involved the patient positioning complex portions of the surgery and final skin closure. I attest to the content of the Intraoperative Record and any orders documented therein. Any exceptions are noted below.
[2022-11-17] MEDS: HYDROmorphone INJ 2 MG/ML SYR/VIAL IV PRN ×2 (13:22→13:33)
--- NOTE | 2022-11-17 13:52 | Fluoroscopy Report ---
FL lumbar spine 2-3V CLINICAL HISTORY: L4-S1 HR/REVISION COMPARISON STUDY: Lumbar spine fluoroscopic images February 17, 2022. Lumbar spine radiographs February 24, 2022, lumbar spine MRI August 13, [address] August 16, 2022. FLUOROSCOPY TIME: 55 seconds. [place] r: 40.79 mGy FLUOROSCOPIC IMAGES: 2 FINDINGS: Fluoroscopy was provided during hardware removal and revision L4-S1 fusion. Previous L4-L5 and L5-S1 discectomies with interbody spacer placement as noted. Radiodensity adjacent to the L4 and S1 pedicle screws is noted. This likely reflects cement. IMPRESSION: Fluoroscopy provided during L4-S1 revision posterior decompression and fusion. ACT 112: Negative or not required by law. Electronically signed by: Bill Spencer M.D. 11/17/2022 1:51 PM
--- NOTE | 2022-11-17 14:29 | Anesthesiology Progress Note ---
Date of Service November 17, 2022 Anesthesia Post Procedure Vital Signs Vital Signs: Temp Pulse Pulse Resp BP BP Pulse Ox 11/17/22 13:40 75 12 88/57 L 99 11/17/22 14:20 83 14 106/67 97 11/17/22 14:10 36.4 C L 79 12 108/67 96 11/17/22 14:00 83 12 85/47 L 97 11/17/22 13:50 87 12 93/66 L 97 11/17/22 13:30 85 14 102/65 98 11/17/22 13:16 36.0 C L 88 18 102/52 L 98 11/17/22 08:45 36.4 C L 80 20 113/75 94 O2 Del Method O2 Flow Rate 11/17/22 13:40 Oxymask 6 11/17/22 14:20 Nasal Cannula 2 11/17/22 14:10 Nasal Cannula 2 11/17/22 14:00 Nasal Cannula 2 11/17/22 13:50 Oxymask 3 11/17/22 13:30 Oxymask 6 11/17/22 13:16 Oxymask 6 11/17/22 08:45 Room Air Pain Intensity Bilateral Back: Pain Intensity: 8 Transfer of Care Handoff Completed per policy Notes Mental Status: alert / awake / arousable and participated in evaluation Nausea / Vomiting: adequately controlled Pain: adequately controlled Airway Patency, RR, SpO2: stable & adequate BP & HR: stable & adequate Hydration State: stable & adequate Anesthetic Complications: no major complications apparent and Pt Satisfied with anesthetic care
[2022-11-17] MEDS ORDERED: ALUMINUM/MAGNESIUM SUSP 30 ML UDC PO PRN (14:52)
[2022-11-17] MEDS ORDERED: ACETAMINOPHEN 1,000 MG/100 ML VIAL IV PRN (14:52)
[2022-11-17] MEDS ORDERED: MIRTAZAPINE TAB 15 MG TAB PO PRN (14:52)
[2022-11-17] MEDS ORDERED: ONDANSETRON 4 MG OD TAB PO PRN (14:52)
[2022-11-17] MEDS ORDERED: FAMOTIDINE 20 MG TAB PO PRN (14:52)
[2022-11-17] MEDS ORDERED: SOD PHOSPHATE/SOD BIPHOSPHATE ENEMA 132 ML BTL PR PRN (14:52)
[2022-11-17] MEDS ORDERED: DO NOT ADMINISTER PNEUMOCOCCAL VACCINE PRN (14:52)
[2022-11-17] MEDS ORDERED: hydrOXYzine HCl 25 MG TAB PO PRN (14:52)
[2022-11-17] MEDS ORDERED: diphenhydrAMINE Capsule 25 MG CAP PO PRN (14:52)
[2022-11-17] MEDS ORDERED: LORazepam 0.5 MG TAB PO PRN (14:52)
[2022-11-17] MEDS ORDERED: DO NOT ADMINISTER FLU VACCINE PRN (14:52)
[2022-11-17] MEDS ORDERED: PROMETHAZINE HCL 12.5 MG in SODIUM CHLORIDE 0.9% 50 ML IV PRN (14:52)
[2022-11-17] MEDS ORDERED: MAGNESIUM HYDROXIDE SUSP 30 ML UDC PO PRN (14:52)
[2022-11-17] MEDS ORDERED: bisacodyL 10 MG SUPP PR PRN (14:52)
[2022-11-17] MEDS ORDERED: LORazepam 2 MG/1 ML VIAL IV PRN (14:52)
[2022-11-17] MEDS ORDERED: METOCLOPRAMIDE HCL INJ 5 MG/ML 2 ML VIAL IV PRN (14:52)
[2022-11-17] MEDS ORDERED: HYDROmorphone INJ 1 MG/ML SYRINGE IV PRN (14:52)
[2022-11-17] MEDS ORDERED: NALOXONE HCL 0.4 MG/1 ML VIAL/CARP IV PRN (14:52)
[2022-11-17] MEDS: LACTATED RINGER'S 1,000 ML IV SCH (15:11)
[2022-11-17] MEDS: PREGABALIN 150 MG CAP PO SCH ×2 (15:14→20:39)
[2022-11-17] MEDS: oxyCODONE HCL IR 5 MG TAB (IMMEDIATE RELEASE) PO PRN (15:14)
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
[2022-11-17] MEDS ORDERED: LEVONORGESTREL (MIRENA) IUD PV PRN (15:33)
[2022-11-17] MEDS: busPIRone 5 MG TAB PO SCH ×2 (16:12→20:39)
[2022-11-17] MEDS: GABAPENTIN 100 MG CAP PO SCH ×2 (16:12→20:39)
[2022-11-17] MEDS: traMADol HCL 50 MG TABLET PO PRN (16:19)
[2022-11-17] MEDS: ACETAMINOPHEN 500 MG TAB PO PRN (16:19)
[2022-11-17] MEDS: HYDROmorphone INJ 0.5 MG/0.5 ML SYR IV PRN ×2 (17:22→20:48)
[2022-11-17] MEDS: ceFAZolin 1000MG 1,000 MG/7.5 ML SYR IV SCH (18:13)
[2022-11-17] MEDS: levETIRAcetam 500 MG TAB PO SCH (20:39)
[2022-11-17] MEDS: DOCUSATE SODIUM/SENNA 50/8.6MG TAB PO SCH (20:39)
[2022-11-17] MEDS: rOPINIRole HCL 0.25 MG TABLET PO SCH (20:39)
[2022-11-17] MEDS: PRAZOSIN HCL 1 MG CAP PO SCH (20:39)
[2022-11-18] MEDS: ceFAZolin 1000MG 1,000 MG/7.5 ML SYR IV SCH (03:11)
[2022-11-18] MEDS: LACTATED RINGER'S 1,000 ML IV SCH ×2 (03:11→13:15)
[2022-11-18 05:53] LABS: Basophils # (auto) 0.02 K/uL (0-0.2); Basophils % (auto) 0.1 %; Hematocrit (blood only) 27.8 % (37.0-47.0); Hemoglobin 9.3 g/dl (12.0-16.0); Immature Granulocytes # (auto) 0.05 K/uL (0.01-0.20); Immature Granulocytes % (auto) 0.4 %; Lymphocytes # (auto) 1.43 K/uL (1.2-3.4); Lymphocytes % (auto) 10.6 %; Mean Corpuscular Hemoglobin 25.6 pg (25.0-34.0); Mean Corpuscular Hgb Conc 33.5 g/dL (32.0-36.0); Mean Corpuscular Volume 76.6 fL (80.0-100.0); Mean Platelet Volume 10.4 fL (9.4-12.4); Monocytes # (auto) 0.77 K/uL (0.11-0.59); Monocytes % (auto) 5.7 %; Neutrophils # (auto) 11.23 K/uL (1.40-6.50); Neutrophils % (auto) 83.2 %; Platelet Count 420 K/uL (130-400); RDW Standard Deviation 47.8 fL (36.4-46.3); Red Blood Count 3.63 M/uL (4.20-5.40)
[2022-11-18] MEDS: POLYETHYLENE (MIRALAX) 17 GM PACK PO SCH ×3 (06:04→17:20)
[2022-11-18] MEDS: LEVOTHYROXINE SODIUM 50 MCG TABLET PO SCH (06:04)
[2022-11-18 06:09] LABS: BUN Creatinine Ratio 14.7 (10-20); Calcium 8.7 mg/dl (8.6-10.3); Creatinine Clr Calc Pharmacy 58.8 ml/min; Est GFR (African American) 107.7 ml/min; Est GFR (Non-African American) 92.9 ml/min; Magnesium 1.8 mg/dl (1.7-2.4); Potassium 4.1 mmol/L (3.5-5.1)
[2022-11-18] MEDS: METOPROLOL SUCC 25MG EXT REL TAB PO SCH (07:21)
[2022-11-18] MEDS: CYANOCOBALAMIN (B-12) 500 MCG TABLET PO SCH (07:27)
[2022-11-18] MEDS: LURASIDONE HCL 40 MG TAB PO SCH (07:27)
[2022-11-18] MEDS: levETIRAcetam 500 MG TAB PO SCH ×2 (07:28→20:38)
[2022-11-18] MEDS: FOLIC ACID 400 MCG TAB PO SCH (07:28)
[2022-11-18] MEDS: DULoxetine HCL 20 MG CAP PO SCH (07:28)
[2022-11-18] MEDS: THIAMINE HCL 50 MG TABLET PO SCH (07:28)
[2022-11-18] MEDS: lamoTRIgine 25 MG TAB PO SCH (07:28)
[2022-11-18] MEDS: PANTOprazole 40 MG TAB PO SCH (07:28)
[2022-11-18] MEDS: GABAPENTIN 100 MG CAP PO SCH ×3 (07:28→20:39)
[2022-11-18] MEDS: busPIRone 5 MG TAB PO SCH ×3 (07:29→20:39)
[2022-11-18] MEDS: PREGABALIN 150 MG CAP PO SCH ×3 (07:29→20:41)
[2022-11-18] MEDS: oxyCODONE HCL IR 5 MG TAB (IMMEDIATE RELEASE) PO PRN ×2 (07:29→12:11)
[2022-11-18] MEDS: HYDROmorphone INJ 0.5 MG/0.5 ML SYR IV PRN ×4 (09:35→21:01)
[2022-11-18] MEDS ORDERED: KETOROLAC TROMETHAMINE 15 MG/ML VIAL IV ONE (10:02)
--- NOTE | 2022-11-18 10:02 | Orthopedic Progress Note ---
Date of Service November 18, 2022 Assessment & Plan (1) Neurogenic claudication due to lumbar spinal stenosis: Plan: At this time we will initiate physical therapy. Monitor MARY output. We will not give her any steroids as could increase the risk of a psychotic event. I will try Toradol for additional pain control. Admission and Anticipated Discharge Date Admission Date: November 17, 2022 Subjective Patient is complaining of back pain. She has established leg pain that is unchanged. Physical Exam Physical Exam: On exam patient is currently bed. She is good strength testing. Drain is functioning appropriately. Results & Data Vital Signs (Past 12 Hours) Vital Signs Temp Pulse Pulse Resp BP Pulse Ox O2 Del Method 11/18/22 07:17 36.6 C 81 16 106/69 95 Room Air 11/18/22 06:06 81 114/75 11/18/22 03:19 37.2 C 80 16 94/59 L 93 Room Air 11/17/22 23:13 36.6 C 73 16 97/65 L 96 Room Air
[2022-11-18] MEDS: POTASSIUM CHLORIDE CRTAB 20 MEQ TABCR PO SCH (11:06)
[2022-11-18] MEDS ORDERED: XTAMPZA PO SCH (11:30)
--- NOTE | 2022-11-18 14:13 | Hospitalist Progress Note ---
Date of Service November 18, 2022 Assessment & Plan (1) Neurogenic claudication due to lumbar spinal stenosis: (2) History of seizure: (3) HTN (hypertension): (4) Depression: (5) GERD (gastroesophageal reflux disease): Plan Ms. Carolina is a 52 year old female that presented to the [facility] for an elective surgery under the care of Dr. Acosta after failed conservative management. Patient underwent L4-S1 hardware removal followed by L4-S1 revision decompression and fusion surgery with insertion of stimulant beads; and a kyphoplasty at the L4-S1 region. Previous decompression and fusion surgery occurred September 2021. EBL 50mL; baseline Hgb 11.5 Additional past medical history includes history of seizures, HTN, depression and GERD. She was recently hospitalized in September 2022 at [facility] for treatment for seizures related to Ativan withdrawal. Per review of the chart it appears that patient has had adverse reaction to anesthesia postoperatively and has had delusions and paranoia and a documented seizure. Neurogenic claudication due to lumbar spinal stenosis: POD#1 s/p L4-S1 hardware removal followed by L4-S1 revision decompression and fusion. Stimulation bead insertion with kyphoplasty L4-S1 under the care of Dr. Acosta. Per ortho for pain control, wound care, anticoagulation and activities. Postop hemoglobin of 9.3 EBL: 50 mL continue incentive spirometry PT/OT when appropriate History of seizure: Takes Keppra and Lamictal; continue Recent inpt hospitalization for seizure 09/2022 at [facility] provoked by Ativan withdrawl Will DC PRN Ativan Documented tremors related to anesthesia 09/2021 HTN: Takes metoprolol QAM; Blood pressure on softer side. Continue with holding parameters. Depression: Takes BuSpar; continue GERD: Takes Protonix; continue Disposition: PCP: Dr. Peralta CODE STATUS: Full code VTE prophylaxis: Per admitting team Please note the above document was generated using voice recognition software. It may contain grammatical, syntax or spelling errors. Any formal questions or concerns about the content, text or information contained within the body of this dictation should be directly addressed to the provider for clarification Admission and Anticipated Discharge Date Admission Date: November 17, 2022 Subjective Patient seen and examined at bedside. She is lying comfortably on the bed; not in any distress. Reports pain at surgical site. Ambulated with physical therapy Review of Systems Review of Systems: All systems reviewed & are unremarkable except as noted in Subjective Physical Exam Physical Exam: Neuro: AAOx4, PERRLA, no aphagia, memory changes, CNII-XII grossly intact HEENT: head normocephalic, moist mucus membranes CV: S1/S2, (-) M/G/R, (-) edema, cap refill < 3 seconds MARY drain bright red blood Resp: Lungs CTA in all zavala. On RA GI: Abdomen S/NT/ND, Ax4 bowel sounds, (-) CVA tenderness Musculoskeletal: 5/5 B/L UE strength, 5/5 B/L LE strength. No neuropathy Skin: (-) rashes , (-) erythema. Psych: euthymic mood Results & Data Results & Data Vital Signs (Past 12 Hours) Vital Signs Temp Pulse Pulse Resp BP Pulse Ox O2 Del Method 11/18/22 12:11 111/76 11/18/22 11:00 36.5 C 81 18 99/66 L 95 Room Air 11/18/22 07:17 36.6 C 81 16 106/69 95 Room Air 11/18/22 06:06 81 114/75 11/18/22 03:19 37.2 C 80 16 94/59 L 93 Room Air Laboratory Results Laboratory Results WBC 13.50 K/ul (4.8-10.8) H 11/18/22 05:25 RBC 3.63 M/uL (4.20-5.40) L 11/18/22 05:25 Hgb 9.3 g/dl (12.0-16.0) L 11/18/22 05:25 Hct 27.8 % (37.0-47.0) L 11/18/22 05:25 MCV 76.6 fL (80.0-100.0) L 11/18/22 05:25 MCH 25.6 pg (25.0-34.0) 11/18/22 05:25 MCHC 33.5 g/dL (32.0-36.0) 11/18/22 05:25 RDW Std Deviation 47.8 fL (36.4-46.3) H 11/18/22 05:25 RDW Coeff of Sara 17.0 % (11.5-14.5) H 11/18/22 05:25 Plt Count 420 K/uL (130-400) H 11/18/22 05:25 MPV 10.4 fL (9.4-12.4) 11/18/22 05:25 Immature Gran % (Auto) 0.4 % 11/18/22 05:25 Neut % (Auto) 83.2 % 11/18/22 05:25 Lymph % (Auto) 10.6 % 11/18/22 05:25 [place] % (Auto) 5.7 % 11/18/22 05:25 Eos % (Auto) 0.0 % 11/18/22 05:25 Baso % (Auto) 0.1 % 11/18/22 05:25 Neut # (Auto) 11.23 K/uL (1.40-6.50) H 11/18/22 05:25 Lymph # (Auto) 1.43 K/uL (1.2-3.4) 11/18/22 05:25 [place] # (Auto) 0.77 K/uL (0.11-0.59) H 11/18/22 05:25 Eos # (Auto) 0.00 K/uL (0-0.50) 11/18/22 05:25 Baso # (Auto) 0.02 K/uL (0-0.2) 11/18/22 05:25 Immature Gran # (Auto) 0.05 K/uL (0.01-0.20) 11/18/22 05:25 Sodium 139 mmol/L (136-145) 11/18/22 05:25 Potassium 4.1 mmol/L (3.5-5.1) 11/18/22 05:25 Chloride 103 mmol/L (98-107) 11/18/22 05:25 Carbon Dioxide 28 mmol/L (21-32) 11/18/22 05:25 Anion Gap 8 (3-11) 11/18/22 05:25 BUN 11 mg/dl (6-23) 11/18/22 05:25 Creatinine 0.75 mg/dl (0.6-1.2) 11/18/22 05:25 Est Cr Clr Drug Dosing 58.8 ml/min 11/18/22 05:25 Est GFR ( Amer) 107.7 ml/min 11/18/22 05:25 Est GFR (Non-Af Amer) 92.9 ml/min 11/18/22 05:25 BUN/Creatinine Ratio 14.7 (10-20) 11/18/22 05:25 Glucose 100 mg/dl (70-99(Fasting)) H 11/18/22 05:25 Calcium 8.7 mg/dl (8.6-10.3) 11/18/22 05:25 Magnesium 1.8 mg/dl (1.7-2.4) 11/18/22 05:25 POC Ur Test NEG (NEG) 11/17/22 08:45 SARS-CoV-2, RNA, NAAT NEGATIVE (NEGATIVE) 11/17/22 08:35 Blood Type O Positive 11/17/22 08:44 Antibody Screen NEGATIVE 11/17/22 08:44 Crossmatch See Detail 11/17/22 08:44 Impressions Lumbar Spine X-Ray 11/17/22 10:05 FL lumbar spine 2-3V CLINICAL HISTORY: L4-S1 HR/REVISION COMPARISON STUDY: Lumbar spine fluoroscopic images February 17, 2022. Lumbar spine radiographs February 24, 2022, lumbar spine MRI August 13, [address] August 16, 2022. FLUOROSCOPY TIME: 55 seconds. Ka, r: 40.79 mGy FLUOROSCOPIC IMAGES: 2 FINDINGS: Fluoroscopy was provided during hardware removal and revision L4-S1 fusion. Previous L4-L5 and L5-S1 discectomies with interbody spacer placement as noted. Radiodensity adjacent to the L4 and S1 pedicle screws is noted. This likely reflects cement. IMPRESSION: Fluoroscopy provided during L4-S1 revision posterior decompression and fusion. ACT 112: Negative or not required by law. Electronically signed by: Bill Spencer M.D. 11/17/2022 1:51 PM
[2022-11-18] MEDS: traMADol HCL 50 MG TABLET PO PRN (20:26)
[2022-11-18] MEDS: KETOROLAC TROMETHAMINE 15 MG/ML VIAL IV PRN (20:27)
[2022-11-18] MEDS: rOPINIRole HCL 0.25 MG TABLET PO SCH (20:38)
[2022-11-18] MEDS: PRAZOSIN HCL 1 MG CAP PO SCH (20:38)
[2022-11-18] MEDS: DOCUSATE SODIUM/SENNA 50/8.6MG TAB PO SCH (20:39)
[2022-11-19] MEDS: POLYETHYLENE (MIRALAX) 17 GM PACK PO SCH ×5 (00:56→23:06)
[2022-11-19] MEDS: HYDROmorphone INJ 0.5 MG/0.5 ML SYR IV PRN ×5 (01:44→18:39)
[2022-11-19] MEDS: KETOROLAC TROMETHAMINE 15 MG/ML VIAL IV PRN ×3 (05:04→20:42)
[2022-11-19] MEDS: LEVOTHYROXINE SODIUM 50 MCG TABLET PO SCH (05:28)
[2022-11-19] MEDS ORDERED: SODIUM CHLORIDE 0.9% 500 ML IV SCH (05:45)
[2022-11-19] MEDS: lamoTRIgine 25 MG TAB PO SCH (07:15)
[2022-11-19] MEDS: GABAPENTIN 100 MG CAP PO SCH ×3 (07:15→20:42)
[2022-11-19] MEDS: THIAMINE HCL 50 MG TABLET PO SCH (07:16)
[2022-11-19] MEDS: levETIRAcetam 500 MG TAB PO SCH ×2 (07:16→20:42)
[2022-11-19] MEDS: DULoxetine HCL 20 MG CAP PO SCH (07:16)
[2022-11-19] MEDS: busPIRone 5 MG TAB PO SCH ×3 (07:16→20:42)
[2022-11-19] MEDS: FOLIC ACID 400 MCG TAB PO SCH (07:17)
[2022-11-19] MEDS: PANTOprazole 40 MG TAB PO SCH (07:17)
[2022-11-19] MEDS: LURASIDONE HCL 40 MG TAB PO SCH (07:17)
[2022-11-19] MEDS: CYANOCOBALAMIN (B-12) 500 MCG TABLET PO SCH (07:17)
[2022-11-19] MEDS: traMADol HCL 50 MG TABLET PO PRN ×2 (07:21→17:32)
[2022-11-19] MEDS: PREGABALIN 150 MG CAP PO SCH ×3 (07:23→20:42)
--- NOTE | 2022-11-19 08:10 | Orthopedic Progress Note ---
Date of Service November 19, 2022 Assessment & Plan (1) Neurogenic claudication due to lumbar spinal stenosis: Plan: Bettina is postoperative day 2 status post revision fusion L4-S1. We are going to hold on any steroids due to possible link to a psychotic event she had recently. She has IV Toradol, Dilaudid and oral oxycodone and tramadol ordered. We have discussed and alternating schedule for these medications to try and achieve better pain control. We will continue with physical therapy today. Maintain MARY drain. Continue with aggressive bowel regimen. DVT prophylaxis is in the form teds and SCDs. Anticipate discharge within the next couple of days. Admission and Anticipated Discharge Date Admission Date: November 17, 2022 Subjective Bettina is postoperative day 2 status post revision fusion L4-S1. She reports having poor pain control. Denies headaches, nausea, no vomiting. Has alternating lower extremity pain which is unchanged compared to preoperative status. Yesterday in physical therapy ambling roughly 75 feet. MARY drain output last shift was 40 cc. She is passing flatus but no bowel movement. Review of Systems Review of Systems: All systems reviewed & are unremarkable except as noted in HPI & below Physical Exam Physical Exam: She is lying in bed in no acute distress Alert and oriented times Lumbar dressing is clean dry intact with functioning MARY drain. MARY drainage is serosanguineous Calf soft nontender bilateral LG hose intact bilateral lower extremity Strength intact bilateral lower extremity Results & Data Vital Signs (Past 12 Hours) Vital Signs Temp Pulse Pulse Resp BP Pulse Ox O2 Del Method 11/19/22 07:12 105/65 11/19/22 07:12 102 H 93 Room Air 11/19/22 07:10 96 H 78/46 L 87 L Room Air 11/19/22 04:55 37.1 C 100 H 16 86/56 L 93 Room Air 11/18/22 21:45 Room Air 11/18/22 20:35 36.4 C L 86 16 94/64 L 97 Room Air
[2022-11-19] MEDS: METOPROLOL SUCC 25MG EXT REL TAB PO SCH (08:55)
[2022-11-19] MEDS: ACETAMINOPHEN 500 MG TAB PO PRN (11:04)
[2022-11-19] MEDS: POTASSIUM CHLORIDE CRTAB 20 MEQ TABCR PO SCH (11:04)
--- NOTE | 2022-11-19 11:22 | Hospitalist Progress Note ---
Date of Service November 19, 2022 Assessment & Plan (1) Neurogenic claudication due to lumbar spinal stenosis: (2) History of seizure: (3) HTN (hypertension): (4) Depression: (5) GERD (gastroesophageal reflux disease): Plan Ms. Carolina is a 52 year old female that presented to the [facility] for an elective surgery under the care of Dr. Acosta after failed conservative management. Patient underwent L4-S1 hardware removal followed by L4-S1 revision decompression and fusion surgery with insertion of stimulant beads; and a kyphoplasty at the L4-S1 region. Previous decompression and fusion surgery occurred September 2021. EBL 50mL; baseline Hgb 11.5 Additional past medical history includes history of seizures, HTN, depression and GERD. She was recently hospitalized in September 2022 at [facility] for treatment for seizures related to Ativan withdrawal. Per review of the chart it appears that patient has had adverse reaction to anesthesia postoperatively and has had delusions and paranoia and a documented seizure. Neurogenic claudication due to lumbar spinal stenosis: POD#2 s/p L4-S1 hardware removal followed by L4-S1 revision decompression and fusion. Stimulation bead insertion with kyphoplasty L4-S1 under the care of Dr. Acosta. Per ortho for pain control, wound care, anticoagulation and activities. Postop hemoglobin of 9.3 EBL: 50 mL continue incentive spirometry Continue aggressive bowel regimen Monitor for urinary retention. History of seizure: Takes Keppra and Lamictal; continue Recent inpt hospitalization for seizure 09/2022 at [facility] provoked by Ativan withdrawl Will DC PRN Ativan Documented tremors related to anesthesia 09/2021 HTN: Takes metoprolol QAM; Blood pressure on softer side. Continue with holding parameters. Depression: Takes BuSpar; continue GERD: Takes Protonix; continue Disposition: PCP: Dr. Peralta CODE STATUS: Full code VTE prophylaxis: Per admitting team Please note the above document was generated using voice recognition software. It may contain grammatical, syntax or spelling errors. Any formal questions or concerns about the content, text or information contained within the body of this dictation should be directly addressed to the provider for clarification Admission and Anticipated Discharge Date Admission Date: November 17, 2022 Subjective Patient seen and examined at bedside. She is comfortable lying in the bed. Reports requiring straight cath due to urinary retention. She reports that she has been able to void herself. Working well with physical therapy. Afebrile, normotensive and saturating well on room air Review of Systems Review of Systems: All systems reviewed & are unremarkable except as noted in Subjective Physical Exam Physical Exam: Neuro: AAOx4, PERRLA, no aphagia, memory changes, CNII-XII grossly intact HEENT: head normocephalic, moist mucus membranes CV: S1/S2, (-) M/G/R, (-) edema, cap refill < 3 seconds MARY drain bright red blood Resp: Lungs CTA in all zavala. On RA GI: Abdomen S/NT/ND, Ax4 bowel sounds, (-) CVA tenderness Musculoskeletal: 5/5 B/L UE strength, 5/5 B/L LE strength. No neuropathy Skin: (-) rashes , (-) erythema. Psych: euthymic mood Results & Data Results & Data Vital Signs (Past 12 Hours) Vital Signs Temp Pulse Resp BP Pulse Ox O2 Del Method 11/19/22 07:12 105/65 11/19/22 07:12 102 H 93 Room Air 11/19/22 07:10 96 H 78/46 L 87 L Room Air 11/19/22 04:55 37.1 C 100 H 16 86/56 L 93 Room Air Laboratory Results Laboratory Results WBC 13.50 K/ul (4.8-10.8) H 11/18/22 05:25 RBC 3.63 M/uL (4.20-5.40) L 11/18/22 05:25 Hgb 9.3 g/dl (12.0-16.0) L 11/18/22 05:25 Hct 27.8 % (37.0-47.0) L 11/18/22 05:25 MCV 76.6 fL (80.0-100.0) L 11/18/22 05:25 MCH 25.6 pg (25.0-34.0) 11/18/22 05:25 MCHC 33.5 g/dL (32.0-36.0) 11/18/22 05:25 RDW Std Deviation 47.8 fL (36.4-46.3) H 11/18/22 05:25 RDW Coeff of Sara 17.0 % (11.5-14.5) H 11/18/22 05:25 Plt Count 420 K/uL (130-400) H 11/18/22 05:25 MPV 10.4 fL (9.4-12.4) 11/18/22 05:25 Immature Gran % (Auto) 0.4 % 11/18/22 05:25 Neut % (Auto) 83.2 % 11/18/22 05:25 Lymph % (Auto) 10.6 % 11/18/22 05:25 [place] % (Auto) 5.7 % 11/18/22 05:25 Eos % (Auto) 0.0 % 11/18/22 05:25 Baso % (Auto) 0.1 % 11/18/22 05:25 Neut # (Auto) 11.23 K/uL (1.40-6.50) H 11/18/22 05:25 Lymph # (Auto) 1.43 K/uL (1.2-3.4) 11/18/22 05:25 [place] # (Auto) 0.77 K/uL (0.11-0.59) H 11/18/22 05:25 Eos # (Auto) 0.00 K/uL (0-0.50) 11/18/22 05:25 Baso # (Auto) 0.02 K/uL (0-0.2) 11/18/22 05:25 Immature Gran # (Auto) 0.05 K/uL (0.01-0.20) 11/18/22 05:25 Sodium 139 mmol/L (136-145) 11/18/22 05:25 Potassium 4.1 mmol/L (3.5-5.1) 11/18/22 05:25 Chloride 103 mmol/L (98-107) 11/18/22 05:25 Carbon Dioxide 28 mmol/L (21-32) 11/18/22 05:25 Anion Gap 8 (3-11) 11/18/22 05:25 BUN 11 mg/dl (6-23) 11/18/22 05:25 Creatinine 0.75 mg/dl (0.6-1.2) 11/18/22 05:25 Est Cr Clr Drug Dosing 58.8 ml/min 11/18/22 05:25 Est GFR ( Amer) 107.7 ml/min 11/18/22 05:25 Est GFR (Non-Af Amer) 92.9 ml/min 11/18/22 05:25 BUN/Creatinine Ratio 14.7 (10-20) 11/18/22 05:25 Glucose 100 mg/dl (70-99(Fasting)) H 11/18/22 05:25 Calcium 8.7 mg/dl (8.6-10.3) 11/18/22 05:25 Magnesium 1.8 mg/dl (1.7-2.4) 11/18/22 05:25 POC Ur Test NEG (NEG) 11/17/22 08:45 SARS-CoV-2, RNA, NAAT NEGATIVE (NEGATIVE) 11/17/22 08:35 Blood Type O Positive 11/17/22 08:44 Antibody Screen NEGATIVE 11/17/22 08:44 Crossmatch See Detail 11/17/22 08:44 Impressions Lumbar Spine X-Ray 11/17/22 10:05 FL lumbar spine 2-3V CLINICAL HISTORY: L4-S1 HR/REVISION COMPARISON STUDY: Lumbar spine fluoroscopic images February 17, 2022. Lumbar spine radiographs February 24, 2022, lumbar spine MRI August 13, [address] August 16, 2022. FLUOROSCOPY TIME: 55 seconds. Ka, r: 40.79 mGy FLUOROSCOPIC IMAGES: 2 FINDINGS: Fluoroscopy was provided during hardware removal and revision L4-S1 fusion. Previous L4-L5 and L5-S1 discectomies with interbody spacer placement as noted. Radiodensity adjacent to the L4 and S1 pedicle screws is noted. This likely reflects cement. IMPRESSION: Fluoroscopy provided during L4-S1 revision posterior decompression and fusion. ACT 112: Negative or not required by law. Electronically signed by: Bill Spencer M.D. 11/17/2022 1:51 PM
[2022-11-19] MEDS: PRAZOSIN HCL 1 MG CAP PO SCH (20:42)
[2022-11-19] MEDS: rOPINIRole HCL 0.25 MG TABLET PO SCH (20:42)
[2022-11-19] MEDS: DOCUSATE SODIUM/SENNA 50/8.6MG TAB PO SCH (20:42)
[2022-11-20] MEDS: POLYETHYLENE (MIRALAX) 17 GM PACK PO SCH ×4 (05:39→23:01)
[2022-11-20] MEDS: KETOROLAC TROMETHAMINE 15 MG/ML VIAL IV PRN ×2 (05:41→14:03)
[2022-11-20] MEDS ORDERED: LEVOTHYROXINE SODIUM 25 MCG TABLET PO SCH (06:30)
[2022-11-20] MEDS: THIAMINE HCL 50 MG TABLET PO SCH (08:05)
[2022-11-20] MEDS: FOLIC ACID 400 MCG TAB PO SCH (08:05)
[2022-11-20] MEDS: CYANOCOBALAMIN (B-12) 500 MCG TABLET PO SCH (08:05)
[2022-11-20] MEDS: busPIRone 5 MG TAB PO SCH ×3 (08:05→20:27)
[2022-11-20] MEDS: levETIRAcetam 500 MG TAB PO SCH ×2 (08:05→20:27)
[2022-11-20] MEDS: LURASIDONE HCL 40 MG TAB PO SCH (08:05)
[2022-11-20] MEDS: DULoxetine HCL 20 MG CAP PO SCH (08:06)
[2022-11-20] MEDS: GABAPENTIN 100 MG CAP PO SCH ×3 (08:06→20:27)
[2022-11-20] MEDS: PANTOprazole 40 MG TAB PO SCH (08:06)
[2022-11-20] MEDS: lamoTRIgine 25 MG TAB PO SCH (08:06)
[2022-11-20] MEDS: PREGABALIN 150 MG CAP PO SCH ×3 (08:11→20:27)
[2022-11-20] MEDS: METOPROLOL SUCC 25MG EXT REL TAB PO SCH (08:13)
[2022-11-20] MEDS: oxyCODONE HCL IR 5 MG TAB (IMMEDIATE RELEASE) PO PRN (08:17)
--- NOTE | 2022-11-20 09:24 | Orthopedic Progress Note ---
Date of Service November 20, 2022 Assessment & Plan (1) Neurogenic claudication due to lumbar spinal stenosis: Plan: At this time I have consulted occupational therapy for their input in regards to rehab versus home health. Hopefully will discharge tomorrow. I have switched her from oxycodone to oral Dilaudid. Admission and Anticipated Discharge Date Admission Date: November 17, 2022 Subjective Patient complaining mostly of back pain that was she states it is improving. She is tolerating physical therapy. Physical Exam Physical Exam: On exam she is in bed. She is alert and oriented. She has good strength testing. Results & Data Vital Signs (Past 12 Hours) Vital Signs Temp Pulse Pulse Resp BP BP Pulse Ox 11/20/22 08:12 105 H 98/66 L 11/20/22 07:05 37.2 C 108 H 16 101/69 95 11/19/22 21:37 O2 Del Method 11/20/22 08:12 11/20/22 07:05 Room Air 11/19/22 21:37 Room Air
[2022-11-20] MEDS: traMADol HCL 50 MG TABLET PO PRN ×2 (09:56→20:02)
[2022-11-20] MEDS: HYDROmorphone HCL 2 MG TAB PO PRN ×2 (10:47→18:07)
[2022-11-20] MEDS: POTASSIUM CHLORIDE CRTAB 20 MEQ TABCR PO SCH (10:48)
--- NOTE | 2022-11-20 12:39 | Hospitalist Progress Note ---
Date of Service November 20, 2022 Assessment & Plan (1) Neurogenic claudication due to lumbar spinal stenosis: (2) History of seizure: (3) HTN (hypertension): (4) Depression: (5) GERD (gastroesophageal reflux disease): Plan Ms. Carolina is a 52 year old female that presented to the [facility] for an elective surgery under the care of Dr. Acosta after failed conservative management. Patient underwent L4-S1 hardware removal followed by L4-S1 revision decompression and fusion surgery with insertion of stimulant beads; and a kyphoplasty at the L4-S1 region. Previous decompression and fusion surgery occurred September 2021. EBL 50mL; baseline Hgb 11.5 Additional past medical history includes history of seizures, HTN, depression and GERD. She was recently hospitalized in September 2022 at [facility] for treatment for seizures related to Ativan withdrawal. Per review of the chart it appears that patient has had adverse reaction to anesthesia postoperatively and has had delusions and paranoia and a documented seizure. Neurogenic claudication due to lumbar spinal stenosis: POD#3 s/p L4-S1 hardware removal followed by L4-S1 revision decompression and fusion. Stimulation bead insertion with kyphoplasty L4-S1 under the care of Dr. Acosta. Per ortho for pain control, wound care, anticoagulation and activities. Postop hemoglobin of 9.3 EBL: 50 mL continue incentive spirometry Continue aggressive bowel regimen Urinary retention: Patient developed urinary retention after removal of Bonilla. Required straight cath multiple times. Bonilla placed back in November 20 Keep Bonilla for next 2 to 3 days; trial of void again. Pain control History of seizure: Takes Keppra and Lamictal; continue Recent inpt hospitalization for seizure 09/2022 at [facility] provoked by Ativan withdrawl Will DC PRN Ativan Documented tremors related to anesthesia 09/2021 HTN: Takes metoprolol QAM; Blood pressure on softer side. Continue with holding parameters. Depression: Takes BuSpar; continue GERD: Takes Protonix; continue Disposition: PCP: Dr. Peralta CODE STATUS: Full code VTE prophylaxis: Per admitting team Please note the above document was generated using voice recognition software. It may contain grammatical, syntax or spelling errors. Any formal questions or concerns about the content, text or information contained within the body of this dictation should be directly addressed to the provider for clarification Admission and Anticipated Discharge Date Admission Date: November 17, 2022 Subjective Patient seen and examined at bedside. She is lying on the bed; reports pain at surgical site. Urinary catheter was placed back in due to urinary retention. Review of Systems Review of Systems: All systems reviewed & are unremarkable except as noted in Subjective Physical Exam Physical Exam: Constitutional: WD/WN, vitals as above, NAD, sitting up in bed, pleasant, conversing easily Respiratory: normal respiratory effort, lungs clear to auscultation, no wheeze, rales, rhonchi. Normal insp/exp effort, no accessory muscle use Cardiovascular: RRR, no murmur, no edema Vessels: no JVD or carotid bruit Chest: normal inspection of chest Abdomen: normal bowel sounds, soft, nontender, no hepatosplenomegaly Musculoskeletal: no cyanosis or clubbing, extremities motor strength 5/5. Dressing at the back clean dry and intact; drain in place. No soakage Skin: no rashes, warm and dry normal turgor Neurologic: PERRL, EOMI, accommodation nl, no face palsy, no dysarthria CN's II- XI intact bilaterally and moves all extremities Psychiatric: A+Ox3, euthymic affect Results & Data Results & Data Vital Signs (Past 12 Hours) Vital Signs Temp Pulse Pulse Resp BP BP Pulse Ox 11/20/22 08:00 11/20/22 08:12 105 H 98/66 L 11/20/22 07:05 37.2 C 108 H 16 101/69 95 O2 Del Method 11/20/22 08:00 Room Air 11/20/22 08:12 11/20/22 07:05 Room Air Laboratory Results Laboratory Results WBC 13.50 K/ul (4.8-10.8) H 11/18/22 05:25 RBC 3.63 M/uL (4.20-5.40) L 11/18/22 05:25 Hgb 9.3 g/dl (12.0-16.0) L 11/18/22 05:25 Hct 27.8 % (37.0-47.0) L 11/18/22 05:25 MCV 76.6 fL (80.0-100.0) L 11/18/22 05:25 MCH 25.6 pg (25.0-34.0) 11/18/22 05:25 MCHC 33.5 g/dL (32.0-36.0) 11/18/22 05:25 RDW Std Deviation 47.8 fL (36.4-46.3) H 11/18/22 05:25 RDW Coeff of Sara 17.0 % (11.5-14.5) H 11/18/22 05:25 Plt Count 420 K/uL (130-400) H 11/18/22 05:25 MPV 10.4 fL (9.4-12.4) 11/18/22 05:25 Immature Gran % (Auto) 0.4 % 11/18/22 05:25 Neut % (Auto) 83.2 % 11/18/22 05:25 Lymph % (Auto) 10.6 % 11/18/22 05:25 [place] % (Auto) 5.7 % 11/18/22 05:25 Eos % (Auto) 0.0 % 11/18/22 05:25 Baso % (Auto) 0.1 % 11/18/22 05:25 Neut # (Auto) 11.23 K/uL (1.40-6.50) H 11/18/22 05:25 Lymph # (Auto) 1.43 K/uL (1.2-3.4) 11/18/22 05:25 [place] # (Auto) 0.77 K/uL (0.11-0.59) H 11/18/22 05:25 Eos # (Auto) 0.00 K/uL (0-0.50) 11/18/22 05:25 Baso # (Auto) 0.02 K/uL (0-0.2) 11/18/22 05:25 Immature Gran # (Auto) 0.05 K/uL (0.01-0.20) 11/18/22 05:25 Sodium 139 mmol/L (136-145) 11/18/22 05:25 Potassium 4.1 mmol/L (3.5-5.1) 11/18/22 05:25 Chloride 103 mmol/L (98-107) 11/18/22 05:25 Carbon Dioxide 28 mmol/L (21-32) 11/18/22 05:25 Anion Gap 8 (3-11) 11/18/22 05:25 BUN 11 mg/dl (6-23) 11/18/22 05:25 Creatinine 0.75 mg/dl (0.6-1.2) 11/18/22 05:25 Est Cr Clr Drug Dosing 58.8 ml/min 11/18/22 05:25 Est GFR ( Amer) 107.7 ml/min 11/18/22 05:25 Est GFR (Non-Af Amer) 92.9 ml/min 11/18/22 05:25 BUN/Creatinine Ratio 14.7 (10-20) 11/18/22 05:25 Glucose 100 mg/dl (70-99(Fasting)) H 11/18/22 05:25 Calcium 8.7 mg/dl (8.6-10.3) 11/18/22 05:25 Magnesium 1.8 mg/dl (1.7-2.4) 11/18/22 05:25 POC Ur Test NEG (NEG) 11/17/22 08:45 SARS-CoV-2, RNA, NAAT NEGATIVE (NEGATIVE) 11/17/22 08:35 Blood Type O Positive 11/17/22 08:44 Antibody Screen NEGATIVE 11/17/22 08:44 Crossmatch See Detail 11/17/22 08:44 Impressions Lumbar Spine X-Ray 11/17/22 10:05 FL lumbar spine 2-3V CLINICAL HISTORY: L4-S1 HR/REVISION COMPARISON STUDY: Lumbar spine fluoroscopic images February 17, 2022. Lumbar spine radiographs February 24, 2022, lumbar spine MRI August 13, [address] August 16, 2022. FLUOROSCOPY TIME: 55 seconds. Ka, r: 40.79 mGy FLUOROSCOPIC IMAGES: 2 FINDINGS: Fluoroscopy was provided during hardware removal and revision L4-S1 fusion. Previous L4-L5 and L5-S1 discectomies with interbody spacer placement as noted. Radiodensity adjacent to the L4 and S1 pedicle screws is noted. This likely reflects cement. IMPRESSION: Fluoroscopy provided during L4-S1 revision posterior decompression and fusion. ACT 112: Negative or not required by law. Electronically signed by: Bill Spencer M.D. 11/17/2022 1:51 PM
[2022-11-20] MEDS: DOCUSATE SODIUM/SENNA 50/8.6MG TAB PO SCH (20:27)
[2022-11-20] MEDS: rOPINIRole HCL 0.25 MG TABLET PO SCH (20:27)
[2022-11-20] MEDS: PRAZOSIN HCL 1 MG CAP PO SCH (20:27)
[2022-11-21] MEDS: HYDROmorphone HCL 2 MG TAB PO PRN ×2 (05:51→10:08)
[2022-11-21] MEDS: LEVOTHYROXINE SODIUM 50 MCG TABLET PO SCH (05:52)
[2022-11-21] MEDS: POLYETHYLENE (MIRALAX) 17 GM PACK PO SCH ×2 (05:52→12:46)
[2022-11-21] MEDS: busPIRone 5 MG TAB PO SCH ×2 (07:53→13:28)
[2022-11-21] MEDS: levETIRAcetam 500 MG TAB PO SCH (07:53)
[2022-11-21] MEDS: PANTOprazole 40 MG TAB PO SCH (07:53)
[2022-11-21] MEDS: DULoxetine HCL 20 MG CAP PO SCH (07:54)
[2022-11-21] MEDS: CYANOCOBALAMIN (B-12) 500 MCG TABLET PO SCH (07:54)
[2022-11-21] MEDS: LURASIDONE HCL 40 MG TAB PO SCH (07:54)
[2022-11-21] MEDS: THIAMINE HCL 50 MG TABLET PO SCH (07:54)
[2022-11-21] MEDS: FOLIC ACID 400 MCG TAB PO SCH (07:55)
[2022-11-21] MEDS: GABAPENTIN 100 MG CAP PO SCH ×2 (07:55→13:28)
[2022-11-21] MEDS: lamoTRIgine 25 MG TAB PO SCH (07:56)
[2022-11-21] MEDS: PREGABALIN 150 MG CAP PO SCH ×2 (08:00→13:34)
[2022-11-21] MEDS: METOPROLOL SUCC 25MG EXT REL TAB PO SCH (08:38)
--- NOTE | 2022-11-21 08:41 | Discharge Summary ---
Date of Service November 21, 2022 Admission HPI Per Admitting Provider This is a 52-year-old female well-known to me the presents with worsening back pain status post lumbar decompression and fusion with evidence of loosening of hardware. She is here for revision surgery. Principal Diagnosis Failed lumbar fusion Discharge Data Allergies Allergy/AdvReac Type Severity Reaction Status Date / Time No Known Drug Allergies Allergy Verified 11/17/22 08:54 Consultations 11/17/22 14:52 Consult Hospitalist Routine Procedures Performed Operation Date: 11/17/22 10:05 Actual Procedures p L4-S1 Hardware Removal, L4-S1 Revision Decompression and Fusion, Bone Morphogenetic Protein, Application of Stimulan Beads, Spinal Cord Monitoring - Darien Acosta DO s Kyphoplasty L4-S1 - Darien Acosta DO Ordered Studies 11/17/22 10:05 FL lumbar spine 2-3V Routine Hospital Course (1) Neurogenic claudication due to lumbar spinal stenosis: Patient underwent revision decompression fusion tolerated this well was taken to orthopedic floor postoperative. Postop day #1 she began physical therapy progressed throughout the next several days. We did have to change her oral pain medication. Became more effective. She feels confident that she is able to manage herself at home. Discharge orders instructions found in chart for further review. Total Time Total Time Spent Total Time Spent (In Minutes): 20 minutes Discharge Plan Discharge Items Patient Disposition: Home - Self-Care Reason For Visit: Lumbar Region Radiculopathy Discharge Diagnosis: Failed lumbar fusion with continued radiculopathy Activity: As commented below Non-emergency contact: Primary Care Provider Call non-emergency contact if: you have any medication questions Follow-up/Referrals: Carlos Peralta M.D. [Primary Care Provider] - Diet: Regular Addtl Attending Provider Instructions: ACTIVITY RECOMMENDATIONS: SELF CARE INSTRUCTIONS AFTER THORACIC/LUMBAR FUSIONS 1. You may walk to your tolerance. It is good exercise for your legs and back. Expect some back and intermittent leg aches and pains. 2. You may perform "counter-top" level activities (make a sandwich, alexsander with a project, etc.). 3. No bending or lifting of more than 10 pounds or back twisting of any nature (roll like a log when turning in bed). 4. You may ride in a car for 20-30 minutes at a time. No driving until after your first visit with your doctor. 5. Frequent changes of position and restricting sitting to 30 minutes at a time will help limit the amount of back spasms and stiffness you may experience. 6. You may discontinue the use of ambulatory aids (cane, crutches, etc.) once your strength and confidence allow. 7. You may joint cutter machine the shower and let water strike your incision when you arrive home at least once daily. Do not take a tub bath, sit in a hot tub or go into a swimming pool until after your first recheck in the office. SPECIAL CARE INSTRUCTIONS: VERY IMPORTANT TO READ AND REVIEW A. Your surgical incision has been closed with a cosmetic suture under the skin that will dissolve in about 6 weeks. In 14 days, you can use a pair of clean scissors and cut the suture that is left outside of the skin at the ends of your incision. 1. The small skin tapes can be removed 7 days after surgery if they have not fallen off by that point. 2. You may keep the wound open to air as much as possible to promote healing after post-op day number 5 unless told otherwise by your doctor. 3. If you think the wound looks like it is becoming infected (redness or worsening drainage) and/or you are experiencing fever, chill or worsening back pain and muscle spasms, contact the office so that we may evaluate you as soon as possible. B. Complications are uncommon, but please contact us if you have any signs or symptoms of: 1. wound infection (fever higher than 102.5 degrees F, redness, separation of wound, drainage, or increasing pain from the incision) 2. blood clots in legs (pain, swelling, redness and warmth in legs) 3. urinary tract infection (fever higher than 102.5 degrees F, burning upon urination or increased frequency of urination) 4. nerve problems (inability to walk on your toes or heels, numbness, loss of bowel or bladder control) 5. any other symptoms that concern you C. Please call the office at if you have any concerns or questions about your operation or recovery. D. No smoking! Smoking drastically decreases the chance of a solid fusion. E. Do not take any anti-inflammatory medications (Indocin, Advil, Motrin, Aspirin, Naprosyn, etc.) as these may inhibit the chance of a solid fusion. Tylenol is okay to take for pain. MANAGING PAIN AFTER SPINAL SURGERY 1. Narcotic medication is intended for short-term use and will be provided for surgical pain. Surgical pain usually lasts for a period of 4-6 weeks. Narcotic medication includes Percocet, Vicodin, Darvocet, Tylenol #3 or Lortab. 2. Longer-term pain is more appropriately treated with non-narcotic medication such as Tylenol ES. 3. Muscle spasm is not appropriately treated with narcotics. Muscle relaxers such as Soma, Flexeril or Skelaxin can be used along with Tylenol ES. 4. Remember that we all live with some "aches and pains". This is not unusual or uncommon after an injury or as we get older. a. Back pain is expected and may include muscle spasms for 4 to 6 weeks after surgery. The pain should gradually improve. If the pain worsens for no apparent reason, please contact the office. b. Intermittent leg pain may also be experienced and should not be concerned about unless it worsens for no apparent reason. If so, please contact the office. 5. We will provide appropriate medication within the normal guidelines of their prescribed use. We will also be very cautious and aware of potential abuse and extended duration of patients' medication needs. a. Pain medications are for your comfort and to assist with sleep and rest so that the tissue can heal. They are not provided in order to return to normal activity and should not be used through the day. To do so or worsening pain at night can result from ongoing tissue damage and development of tolerance to the prescribed medicine. 6. Please allow 2-3 days to process refills. Prescriptions will not be mailed but must be picked up at the office. FOLLOW UP VISIT: Keep your scheduled follow-up appointment. Any questions, please call the office at . Pending Studies at Discharge: No Stand-Alone Forms: My Files[employer], Smoking Cessation Medications and DC Order Prescriptions: New hydromorphone [Dilaudid] 2 mg Tablet 2 mg PO Q6 PRN (Reason: pain) Qty: 30 0RF Continued buspirone 5 mg Tablet 5 mg PO TID cyanocobalamin (vitamin B-12) [Vitamin B-12] 1,000 mcg Tablet Extended Release 1,000 mcg PO QAM thiamine HCl (vitamin B1) [Vitamin B-1] 100 mg Tablet 50 mg PO QAM pantoprazole 40 mg Tablet,Delayed Release (Dr/Ec) 40 mg PO QAM ropinirole 0.5 mg Tablet 0.5 mg PO HS Rx Instructions: administer 1-3 hours before bedtime prazosin 2 mg Capsule 2 mg PO HS levetiracetam 500 mg Tablet 500 mg PO BID lamotrigine 25 mg Tablet 25 mg PO QAM mirtazapine 15 mg Tablet 15 mg PO HS PRN (Reason: Sleep) gabapentin 100 mg Capsule 100 mg PO TID lurasidone 40 mg Tablet 40 mg PO QAM Rx Instructions: must administer with food (at least 350 calories) potassium chloride 20 mEq Tablet Extended Release 20 meq PO QDL duloxetine 40 mg Capsule,Delayed Release(Dr/Ec) 40 mg PO QAM metoprolol succinate 25 mg Capsule,Sprinkle,Er 24hr 25 mg PO QAM Xtampza ER 1 dose PO QDL levothyroxine [Synthroid] 50 mcg Tablet 50 mcg PO UD pregabalin 75 mg Capsule 150 mg PO TID Mirena 20 mcg/24 hours (7 yrs) 52 mg Intrauterine Device 20 mcg INTRAUTERINE DIRECTED folic acid 400 mcg Tablet 400 mcg PO QAM Qty: 30 0RF Discharge Orders: Discharge Order (Routine); Ordered 11/21/22 Ordered By: Darien Acosta Admission Data Admit Date/Time: 11/17/22 12:58 Attending Provider: Darien Acosta Admit Provider: Darien Acosta Primary Care Provider: Carlos Peralta Other Providers: Shreya Silverio ; Davonte Matamoros
[2022-11-21] MEDS: POTASSIUM CHLORIDE CRTAB 20 MEQ TABCR PO SCH (12:46)
--- NOTE | 2022-11-21 13:49 | Hospitalist Progress Note ---
Date of Service November 21, 2022 Assessment & Plan (1) Neurogenic claudication due to lumbar spinal stenosis: (2) History of seizure: (3) HTN (hypertension): (4) Depression: (5) GERD (gastroesophageal reflux disease): Plan Ms. Carolina is a 52 year old female that presented to the [facility] for an elective surgery under the care of Dr. Acosta after failed conservative management. Patient underwent L4-S1 hardware removal followed by L4-S1 revision decompression and fusion surgery with insertion of stimulant beads; and a kyphoplasty at the L4-S1 region. Previous decompression and fusion surgery occurred September 2021. EBL 50mL; baseline Hgb 11.5 Additional past medical history includes history of seizures, HTN, depression and GERD. She was recently hospitalized in September 2022 at [facility] for treatment for seizures related to Ativan withdrawal. Per review of the chart it appears that patient has had adverse reaction to anesthesia postoperatively and has had delusions and paranoia and a documented seizure. Neurogenic claudication due to lumbar spinal stenosis: POD#4 s/p L4-S1 hardware removal followed by L4-S1 revision decompression and fusion. Stimulation bead insertion with kyphoplasty L4-S1 under the care of Dr. Acosta. Per ortho for pain control, wound care, anticoagulation and activities. Postop hemoglobin of 9.3 EBL: 50 mL continue incentive spirometry Continue aggressive bowel regimen Urinary retention: Patient developed urinary retention after removal of Bonilla. Required straight cath multiple times. Bonilla placed back in November 20 Trial of void done again today; patient was only able to void 50 cc. Bladder scan showed 350 cc Call placed to patient's primary care( Dr. Peralta). Discussed with the PA(Wei); updated regarding urinary retention. They will set up urology follo w-up for her as outpatient. Bonilla to be placed back again. Discussed the need of trial of void in 7 to 10 days time. History of seizure: Takes Keppra and Lamictal; continue Recent inpt hospitalization for seizure 09/2022 at [facility] provoked by Ativan withdrawl Will DC PRN Ativan Documented tremors related to anesthesia 09/2021 HTN: Takes metoprolol QAM; Blood pressure on softer side. Continue with holding parameters. Depression: Takes BuSpar; continue GERD: Takes Protonix; continue Disposition: PCP: Dr. Peralta CODE STATUS: Full code VTE prophylaxis: Per admitting team Please note the above document was generated using voice recognition software. It may contain grammatical, syntax or spelling errors. Any formal questions or concerns about the content, text or information contained within the body of this dictation should be directly addressed to the provider for clarification Admission and Anticipated Discharge Date Admission Date: November 17, 2022 Subjective Patient seen multiple times during the day. She is comfortable; not in distress. Bonilla catheter in place; removed. Trial of void unsuccessful Review of Systems Review of Systems: All systems reviewed & are unremarkable except as noted in Subjective Physical Exam Physical Exam: Constitutional: WD/WN, vitals as above, NAD, sitting up in bed, pleasant, conversing easily Respiratory: normal respiratory effort, lungs clear to auscultation, no wheeze, rales, rhonchi. Normal insp/exp effort, no accessory muscle use Cardiovascular: RRR, no murmur, no edema Vessels: no JVD or carotid bruit Chest: normal inspection of chest Abdomen: normal bowel sounds, soft, nontender, no hepatosplenomegaly Musculoskeletal: no cyanosis or clubbing, extremities motor strength 5/5. Dressing at the back clean dry and intact. No soakage Skin: no rashes, warm and dry normal turgor Neurologic: PERRL, EOMI, accommodation nl, no face palsy, no dysarthria CN's II- XI intact bilaterally and moves all extremities Psychiatric: A+Ox3, euthymic affect Results & Data Results & Data Vital Signs (Past 12 Hours) Vital Signs Temp Pulse Resp BP BP Pulse Ox O2 Del Method 11/21/22 07:50 Room Air 11/21/22 08:37 99 H 118/79 93 Room Air 11/21/22 07:21 37 C 104 H 16 107/71 95 Room Air Laboratory Results Laboratory Results WBC 13.50 K/ul (4.8-10.8) H 11/18/22 05:25 RBC 3.63 M/uL (4.20-5.40) L 11/18/22 05:25 Hgb 9.3 g/dl (12.0-16.0) L 11/18/22 05:25 Hct 27.8 % (37.0-47.0) L 11/18/22 05:25 MCV 76.6 fL (80.0-100.0) L 11/18/22 05:25 MCH 25.6 pg (25.0-34.0) 11/18/22 05:25 MCHC 33.5 g/dL (32.0-36.0) 11/18/22 05:25 RDW Std Deviation 47.8 fL (36.4-46.3) H 11/18/22 05:25 RDW Coeff of Sara 17.0 % (11.5-14.5) H 11/18/22 05:25 Plt Count 420 K/uL (130-400) H 11/18/22 05:25 MPV 10.4 fL (9.4-12.4) 11/18/22 05:25 Immature Gran % (Auto) 0.4 % 11/18/22 05:25 Neut % (Auto) 83.2 % 11/18/22 05:25 Lymph % (Auto) 10.6 % 11/18/22 05:25 Woodson % (Auto) 5.7 % 11/18/22 05:25 Eos % (Auto) 0.0 % 11/18/22 05:25 Baso % (Auto) 0.1 % 11/18/22 05:25 Neut # (Auto) 11.23 K/uL (1.40-6.50) H 11/18/22 05:25 Lymph # (Auto) 1.43 K/uL (1.2-3.4) 11/18/22 05:25 Woodson # (Auto) 0.77 K/uL (0.11-0.59) H 11/18/22 05:25 Eos # (Auto) 0.00 K/uL (0-0.50) 11/18/22 05:25 Baso # (Auto) 0.02 K/uL (0-0.2) 11/18/22 05:25 Immature Gran # (Auto) 0.05 K/uL (0.01-0.20) 11/18/22 05:25 Sodium 139 mmol/L (136-145) 11/18/22 05:25 Potassium 4.1 mmol/L (3.5-5.1) 11/18/22 05:25 Chloride 103 mmol/L (98-107) 11/18/22 05:25 Carbon Dioxide 28 mmol/L (21-32) 11/18/22 05:25 Anion Gap 8 (3-11) 11/18/22 05:25 BUN 11 mg/dl (6-23) 11/18/22 05:25 Creatinine 0.75 mg/dl (0.6-1.2) 11/18/22 05:25 Est Cr Clr Drug Dosing 58.8 ml/min 11/18/22 05:25 Est GFR ( Amer) 107.7 ml/min 11/18/22 05:25 Est GFR (Non-Af Amer) 92.9 ml/min 11/18/22 05:25 BUN/Creatinine Ratio 14.7 (10-20) 11/18/22 05:25 Glucose 100 mg/dl (70-99(Fasting)) H 11/18/22 05:25 Calcium 8.7 mg/dl (8.6-10.3) 11/18/22 05:25 Magnesium 1.8 mg/dl (1.7-2.4) 11/18/22 05:25 POC Ur Test NEG (NEG) 11/17/22 08:45 SARS-CoV-2, RNA, NAAT NEGATIVE (NEGATIVE) 11/17/22 08:35 Blood Type O Positive 11/17/22 08:44 Antibody Screen NEGATIVE 11/17/22 08:44 Crossmatch See Detail 11/17/22 08:44 Impressions Lumbar Spine X-Ray 11/17/22 10:05 FL lumbar spine 2-3V CLINICAL HISTORY: L4-S1 HR/REVISION COMPARISON STUDY: Lumbar spine fluoroscopic images February 17, 2022. Lumbar spine radiographs February 24, 2022, lumbar spine MRI August 13, [address] August 16, 2022. FLUOROSCOPY TIME: 55 seconds. Ka, r: 40.79 mGy FLUOROSCOPIC IMAGES: 2 FINDINGS: Fluoroscopy was provided during hardware removal and revision L4-S1 fusion. Previous L4-L5 and L5-S1 discectomies with interbody spacer placement as noted. Radiodensity adjacent to the L4 and S1 pedicle screws is noted. This likely reflects cement. IMPRESSION: Fluoroscopy provided during L4-S1 revision posterior decompression and fusion. ACT 112: Negative or not required by law. Electronically signed by: Bill Spencer M.D. 11/17/2022 1:51 PM
== END 2022-11-21 15:09 | disposition home health service (06) | DRG 460 ==
LOC: ASU 08:20 → 3E 12:58

== ENCOUNTER 2022-11-25 15:29 | Inpatient (IN) ==
[2022-11-25 16:32] LABS: Basophils # (auto) 0.07 K/uL (0-0.2); Basophils % (auto) 0.6 %; Eosinophils # (auto) 0.16 K/uL (0-0.50); Eosinophils % (auto) 1.4 %; Hematocrit (blood only) 29.7 % (37.0-47.0); Hemoglobin 9.6 g/dl (12.0-16.0); Immature Granulocytes # (auto) 0.09 K/uL (0.01-0.20); Immature Granulocytes % (auto) 0.8 %; Lymphocytes # (auto) 2.03 K/uL (1.2-3.4); Lymphocytes % (auto) 17.2 %; Mean Corpuscular Hemoglobin 25.7 pg (25.0-34.0); Mean Corpuscular Hgb Conc 32.3 g/dL (32.0-36.0); Mean Corpuscular Volume 79.4 fL (80.0-100.0); Mean Platelet Volume 10.4 fL (9.4-12.4); Monocytes # (auto) 1.18 K/uL (0.11-0.59); Neutrophils # (auto) 8.24 K/uL (1.40-6.50); Platelet Count 512 K/uL (130-400); RDW Standard Deviation 48.1 fL (36.4-46.3); Red Blood Count 3.74 M/uL (4.20-5.40); White Blood Count 11.77 K/ul (4.8-10.8)
[2022-11-25 17:18] LABS: Appearance Urine Clear (Clear); Bacteria Urine Automated 3+ (Negative); Bilirubin Urine Negative (Negative); Blood Urine Negative (Negative); Color Urine Yellow; Epithelial Cell Urine Auto 20-30 /lpf (0-5); Glucose Urine UA Negative (Negative); Ketones Urine Negative (Negative); Leukocyte Esterase Urine Trace (Negative); Nitrite Urine Positive (Negative); Protein Urine Negative (Negative); RBC Urine Automated 0-4 /hpf (0-4); Specific Gravity Urine 1.013 (1.000-1.030); Urobilinogen Urine Negative (Negative)
[2022-11-25] MEDS ORDERED: cefTRIAXone SODIUM 2,000 MG/70 ML BAG IV STA (17:29)
[2022-11-25] MEDS ORDERED: HYDROmorphone INJ 0.5 MG/0.5 ML SYR IV PRN ×2 (17:34→20:53)
[2022-11-25] MEDS ORDERED: SODIUM CHLORIDE 0.9% 1000ML 500 ML IV ONE (17:34)
[2022-11-25] MEDS ORDERED: HYDROmorphone INJ 0.5 MG/0.5 ML SYR IV STA (17:34)
[2022-11-25] MEDS ORDERED: ONDANSETRON INJ 2 MG/ML 2 ML VIAL IV STA (17:34)
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
[2022-11-25 18:46] LABS: Alanine Aminotransferase 6 U/L (7-52); Albumin Globulin Ratio 1.1 (0.9-2); Albumin Level 3.6 gm/dl (3.4-5.0); Alkaline Phosphatase 97 U/L (34-104); Anion Gap 8 (3-11); Aspartate Aminotransferase 11 U/L (13-39); BUN Creatinine Ratio 14.7 (10-20); Bilirubin,Total 0.2 mg/dl (0.2-1.0); Blood Urea Nitrogen 10 mg/dl (6-23); Calcium 9.2 mg/dl (8.6-10.3); Carbon Dioxide 28 mmol/L (21-32); Chloride 100 mmol/L (98-107); Est GFR (African American) 118.2 ml/min; Globulin 3.2 gm/dl (2.5-4.0); Glucose 88 mg/dl (70-99(Fasting)); Magnesium 1.9 mg/dl (1.7-2.4); Potassium 3.8 mmol/L (3.5-5.1); Sodium 136 mmol/L (136-145); Total Protein 6.8 gm/dl (6.0-8.3)
[2022-11-25] MEDS ORDERED: METOCLOPRAMIDE HCL INJ 5 MG/ML 2 ML VIAL IV PRN (20:53)
[2022-11-25] MEDS ORDERED: NALOXONE HCL 0.4 MG/1 ML VIAL/CARP IV PRN (20:53)
[2022-11-25] MEDS ORDERED: oxyCODONE HCL IR 5 MG TAB (IMMEDIATE RELEASE) PO PRN (20:53)
[2022-11-25] MEDS ORDERED: ONDANSETRON INJ 2 MG/ML 2 ML VIAL IV PRN (20:53)
[2022-11-25] MEDS ORDERED: PROMETHAZINE HCL 12.5 MG in SODIUM CHLORIDE 0.9% 50 ML IV PRN (20:53)
[2022-11-25] MEDS ORDERED: ACETAMINOPHEN 1,000 MG/100 ML VIAL IV PRN (20:53)
[2022-11-25] MEDS ORDERED: [UNRECOGNIZED DRUG - OTHER] IU SCH (20:53)
[2022-11-25] MEDS ORDERED: HYDROmorphone INJ 1 MG/ML SYRINGE IV PRN (20:53)
[2022-11-25] MEDS ORDERED: LEVONORGESTREL IU SCH (20:53)
[2022-11-25] MEDS ORDERED: LACTATED RINGER'S 1,000 ML IV SCH (20:53)
[2022-11-25] MEDS ORDERED: ONDANSETRON 4 MG OD TAB PO PRN (20:53)
[2022-11-25] MEDS ORDERED: MAGNESIUM SULFATE / D5W 1 GM/100 ML BAG IV ONE (21:14)
[2022-11-25] MEDS ORDERED: POTASSIUM CHLORIDE CRTAB 20 MEQ TABCR PO STA (21:14)
[2022-11-25] MEDS ORDERED: Patient's HEIGHT &/or WEIGHT Needed SCH (21:15)
[2022-11-25] MEDS: PREGABALIN 150 MG CAP PO SCH (21:56)
[2022-11-25] MEDS: levETIRAcetam 500 MG TAB PO SCH (21:58)
[2022-11-25] MEDS: GABAPENTIN 100 MG CAP PO SCH (21:58)
[2022-11-25] MEDS: busPIRone 5 MG TAB PO SCH (21:58)
[2022-11-25] MEDS: PRAZOSIN HCL 1 MG CAP PO SCH (21:59)
[2022-11-25] MEDS: rOPINIRole HCL 0.25 MG TABLET PO SCH (21:59)
[2022-11-25] MEDS ORDERED: OPTIRAY 320 100ml IV ONE (22:21)
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
--- NOTE | 2022-11-25 23:48 | CT Scan Report ---
Exam(s): CT L SPINE IV Amt: OPTIRAY 320 94ML EXAM: CT Lumbar Spine With Intravenous Contrast CLINICAL HISTORY: Reason for exam: postop pain. TECHNIQUE: Axial computed tomography images of the lumbar spine with intravenous contrast. Automated exposure control was utilized for the study. A dose lowering technique was utilized adhering to the principles of ALARA. CONTRAST: Patient received OPTIRAY 320 94ML of IV contrast COMPARISON: Comparison made to prior CT scan lumbar spine from August 16, 2022. FINDINGS: Vertebrae: Patient is status post posterior decompression at L4 and L5 with posterior fusion of L4, L5 and S1. Metallic interbody fusion devices in place at L4-5 and L5-S1. No evidence of surgical hardware complication. There is a remote fracture deformity of the T12, L1 and L2 segments. No acute fracture. 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 There is advanced arthropathy of the left SI joint. Discs/spinal canal/neural foramina: No acute findings. No spinal canal stenosis. Soft tissues: There are fluid collections about the posterior elements at L3, L4 and L5 with tiny bubbles of air, which may represent infection. There is a small fluid collection in the subcutaneous fat overlying the operative site. IMPRESSION: Status post posterior decompression and fusion of L4, L5 and S1 with transpedicular screws and connecting rods in place. There are no fluid collections about the posterior elements extending from L3-L5 with tiny bubbles of air, concerning for possible infection. Communications: Verify Receipt with Nurse Electronically signed by: Lila Desir MD 11/25/22 23:47 PM
[2022-11-26] MEDS ORDERED: LACTATED RINGER'S 1,000 ML IV ONE (02:04)
[2022-11-26] MEDS ORDERED: LEVOTHYROXINE SODIUM 50 MCG TABLET PO SCH (06:30)
[2022-11-26] MEDS ORDERED: SODIUM CHLORIDE 0.9% 1000ML 500 ML IV ONE (08:20)
[2022-11-26] MEDS: METOPROLOL SUCC 25MG EXT REL TAB PO SCH (08:33)
[2022-11-26] MEDS: CYANOCOBALAMIN (B-12) 500 MCG TABLET PO SCH (08:34)
[2022-11-26] MEDS: busPIRone 5 MG TAB PO SCH ×3 (08:34→20:45)
[2022-11-26] MEDS: DULoxetine HCL 20 MG CAP PO SCH (08:34)
[2022-11-26] MEDS: GABAPENTIN 100 MG CAP PO SCH ×3 (08:35→20:44)
[2022-11-26] MEDS: FOLIC ACID 400 MCG TAB PO SCH (08:35)
[2022-11-26] MEDS: levETIRAcetam 500 MG TAB PO SCH ×2 (08:35→20:44)
[2022-11-26] MEDS: lamoTRIgine 25 MG TAB PO SCH (08:35)
[2022-11-26] MEDS: THIAMINE HCL 50 MG TABLET PO SCH (08:36)
[2022-11-26] MEDS: PANTOprazole 40 MG TAB PO SCH (08:36)
[2022-11-26] MEDS: LURASIDONE HCL 40 MG TAB PO SCH (08:36)
[2022-11-26] MEDS: PREGABALIN 150 MG CAP PO SCH ×3 (08:37→20:46)
[2022-11-26] MEDS: SODIUM CHLORIDE 0.9% 1000ML 1,000 ML IV SCH ×4 (09:22→22:53)
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
[2022-11-26] MEDS: ACETAMINOPHEN 500 MG TAB PO PRN (09:42)
[2022-11-26] MEDS ORDERED: NALOXONE HCL 0.4 MG/1 ML VIAL/CARP IV PRN (10:23)
[2022-11-26] MEDS: oxyCODONE HCL IR 5 MG TAB (IMMEDIATE RELEASE) PO PRN (11:13)
[2022-11-26] MEDS: LORazepam 0.5 MG TAB PO PRN (11:13)
[2022-11-26] MEDS: ADVANCED PROBIOTIC 1250 MG CAPSULE PO SCH (11:13)
[2022-11-26] MEDS ORDERED: XTAMPZA PO SCH (11:30)
[2022-11-26] MEDS ORDERED: oxyCODONE HCL 10 MG TABCR (OxyCONTIN) PO SCH (11:30)
--- NOTE | 2022-11-26 11:50 | Electrocardiogram Report ---
Test Reason : Blood Pressure : / mmHG Vent. Rate : 104 BPM Atrial Rate : 104 BPM P-R Int : 130 ms QRS Dur : 060 ms QT Int : 330 ms P-R-T Axes : 026 006 042 degrees QTc Int : 433 ms Sinus tachycardia Nonspecific T wave abnormality Abnormal ECG When compared with ECG of 24-FEB-2022 14:04, Criteria for Septal infarct are no longer Present Confirmed by Alon Philip ([id number]) on 11/26/2022 11:49:38 AM Referred By: REFERRED SELF Confirmed By:Alon Philip
[2022-11-26] MEDS: HYDROmorphone PCA 30 MG/30 ML IV PRN ×2 (12:29→12:50)
[2022-11-26] MEDS: POTASSIUM CHLORIDE CRTAB 20 MEQ TABCR PO SCH (12:50)
--- NOTE | 2022-11-26 16:57 | Hospitalist Progress Note ---
Date of Service November 26, 2022 Assessment & Plan (1) History of back surgery: Plan: Complicated UTI Diarrhea Urine culture growing gram-negative bacilli Continue Rocephin Continue IV fluids Check stool for C. difficile Worsening postop back pain with radiculopathy S/P lumbar decompression fusion surgery by Dr. Acosta on 11/17/2022 --Lumbar CT:Status post posterior decompression and fusion of L4, L5 and S1 with transpedicular screws and connecting rods in place. There are no fluid collections about the posterior elements extending from L3-L5 with tiny bubbles of air, concerning for possible infection. -- Appreciate orthopedic spine, pain management input Pain control Possible I&D as per orthopedics Anxiety/Mood disorder Continue buspirone, Lamictal Ativan as needed Hypotension Continue IV fluids Monitor BP Hypothyroidism Continue levothyroxine Chronic pain/fibromyalgia Continue home medication Postop blood loss anemia Hb Stable Monitor CBC DVT Px: As per Primary Team Admission and Anticipated Discharge Date Admission Date: November 25, 2022 Subjective Patient is seen and examined at bedside States having lower back pain at surgical site Anxious during my encounter Denies any chest pain, dyspnea, dizziness, nausea, vomiting, abdominal pain No other complaints Hypotensive this morning Review of Systems Review of Systems: All systems reviewed & are unremarkable except as noted in Subjective Physical Exam Physical Exam: Physical Exam: Vitals signs as noted above General Appearance:Moderately built and nourished, no apparent distress Head: normocephalic, Atraumatic Eyes: normal inspection, EOMI Neck: supple, Trachea midline Respiratory/Chest: Decreased breath sounds, CTA, No accessory muscle use Cardiovascular: S1, S2, No murmur Abdomen/GI:Soft, Non tender, Bowel sounds present Back: Lower cloth printing back tender, Surgical site Extremities/Musculoskeletal:normal inspection, no edema Neurologic/Psych:AAOX3, grossly no focal neurological deficits Skin: normal color, warm Results & Data Results & Data Vital Signs (Past 12 Hours) Vital Signs Temp Pulse Resp BP Pulse Ox O2 Del Method O2 Flow Rate 11/26/22 16:34 36.9 C 93 H 18 94/63 L 96 Nasal Cannula 1 11/26/22 15:30 36.5 C 97 H 10 L 95/62 L 93 Nasal Cannula 1.5 11/26/22 14:28 37 C 96 H 12 90/59 L 99 Nasal Cannula 1.5 11/26/22 13:12 106 H 18 91/61 L 97 Room Air 11/26/22 08:19 Nasal Cannula 1.5 11/26/22 10:31 121 H 92/56 L 93 Nasal Cannula 1.5 11/26/22 09:08 109 H 92/58 L 94 Room Air 11/26/22 08:17 80/52 L 11/26/22 07:52 94 H 86/55 L 11/26/22 07:07 36.6 C 103 H 18 81/52 L 93 Nasal Cannula 1 Laboratory Results [facility] 11/25/22 11/25/22 15:59 17:46 Sodium Cancelled 136 Potassium Cancelled 3.8 Chloride Cancelled 100 Carbon Dioxide Cancelled 28 BUN Cancelled 10 Creatinine Cancelled 0.68 Glucose Cancelled 88 Calcium Cancelled 9.2 Liver Function 11/25/22 11/25/22 Range/Units 15:59 17:46 Total Bilirubin Cancelled 0.2 AST Cancelled 11 L ALT Cancelled 6 L Alkaline Phosphatase Cancelled 97 Albumin Cancelled 3.6 Urine 11/25/22 Range/Units 15:52 Urine Color Yellow Urine Appearance Clear (Clear) Urine pH 5.0 (4.5-7.5) Ur Specific [place] 1.013 (1.000-1.030) Urine Protein Negative (Negative) Urine Glucose (UA) Negative (Negative)
[2022-11-26] MEDS: cefTRIAXone SODIUM 2,000 MG in DEXTROSE 5% 50 ML IV SCH (17:32)
[2022-11-26] MEDS: PRAZOSIN HCL 1 MG CAP PO SCH (20:40)
[2022-11-26] MEDS: rOPINIRole HCL 0.25 MG TABLET PO SCH (20:44)
[2022-11-27] MEDS: LEVOTHYROXINE SODIUM 25 MCG TABLET PO SCH ×2 (04:49→04:51)
[2022-11-27] MEDS ORDERED: Nursing to Pharmacy Communication SCH (06:30)
[2022-11-27 07:51] LABS: Hematocrit (blood only) 27.7 % (37.0-47.0); Hemoglobin 8.9 g/dl (12.0-16.0); Mean Corpuscular Hemoglobin 25.2 pg (25.0-34.0); Mean Corpuscular Hgb Conc 32.1 g/dL (32.0-36.0); Mean Corpuscular Volume 78.5 fL (80.0-100.0); Platelet Count 504 K/uL (130-400); RDW Coefficient of Variation 16.6 % (11.5-14.5); RDW Standard Deviation 46.8 fL (36.4-46.3); Red Blood Count 3.53 M/uL (4.20-5.40); White Blood Count 11.37 K/ul (4.8-10.8)
[2022-11-27 08:02] LABS: Calcium 8.7 mg/dl (8.6-10.3); Est GFR (African American) 127.5 ml/min; Magnesium 1.9 mg/dl (1.7-2.4); Potassium 3.7 mmol/L (3.5-5.1)
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
[2022-11-27] MEDS: PANTOprazole 40 MG TAB PO SCH (09:00)
[2022-11-27] MEDS: METOPROLOL SUCC 25MG EXT REL TAB PO SCH (09:00)
[2022-11-27] MEDS: PREGABALIN 150 MG CAP PO SCH ×3 (09:00→21:40)
[2022-11-27] MEDS: busPIRone 5 MG TAB PO SCH ×3 (09:00→21:40)
[2022-11-27] MEDS: levETIRAcetam 500 MG TAB PO SCH ×2 (09:00→21:40)
[2022-11-27] MEDS: CYANOCOBALAMIN (B-12) 500 MCG TABLET PO SCH (09:00)
[2022-11-27] MEDS: DULoxetine HCL 20 MG CAP PO SCH (09:00)
[2022-11-27] MEDS: oxyCODONE HCL IR 5 MG TAB (IMMEDIATE RELEASE) PO PRN ×3 (09:00→21:45)
[2022-11-27] MEDS: ADVANCED PROBIOTIC 1250 MG CAPSULE PO SCH (09:01)
[2022-11-27] MEDS: LURASIDONE HCL 40 MG TAB PO SCH (09:01)
[2022-11-27] MEDS: THIAMINE HCL 50 MG TABLET PO SCH (09:01)
[2022-11-27] MEDS: lamoTRIgine 25 MG TAB PO SCH (09:01)
[2022-11-27] MEDS: FOLIC ACID 400 MCG TAB PO SCH (09:01)
[2022-11-27] MEDS: ACETAMINOPHEN 500 MG TAB PO PRN (10:11)
[2022-11-27] MEDS: POTASSIUM CHLORIDE CRTAB 20 MEQ TABCR PO SCH (12:27)
--- NOTE | 2022-11-27 13:13 | Orthopedic Progress Note ---
Date of Service November 27, 2022 Assessment & Plan (1) Neurogenic claudication due to lumbar spinal stenosis: Plan: At this time initiate physical therapy Occupational Therapy and plan for rehab pending her progress this week. Admission and Anticipated Discharge Date Admission Date: November 25, 2022 Subjective Patient's pain is better controlled today. She is in the chair at the bedside. She states she was up and ambulating to the bathroom on her own. Physical Exam Physical Exam: On exam patient is in the chair at the bedside. She does appear comfortable today. She is good strength testing lower extremities. No tension signs. Incision is intact. There is modest erythema no gross drainage. Results & Data Vital Signs (Past 12 Hours) Vital Signs Temp Pulse Resp BP Pulse Ox O2 Del Method O2 Flow Rate 11/27/22 07:37 37.2 C 99 H 16 102/69 98 Nasal Cannula 1 11/27/22 02:46 36.9 C 89 10 L 104/69 97 Room Air
[2022-11-27] MEDS: LORazepam 0.5 MG TAB PO PRN (14:47)
--- NOTE | 2022-11-27 16:25 | Hospitalist Progress Note ---
Date of Service November 27, 2022 Assessment & Plan (1) History of back surgery: Plan: Complicated UTI Diarrhea Urine culture growing E colii Continue Rocephin Received IV fluids Check stool for C. difficile if recurrence of diarrhea Transition to p.o. antibiotics as able Worsening postop back pain with radiculopathy S/P lumbar decompression fusion surgery by Dr. Acosta on 11/17/2022 --Lumbar CT:Status post posterior decompression and fusion of L4, L5 and S1 with transpedicular screws and connecting rods in place. There are no fluid collections about the posterior elements extending from L3-L5 with tiny bubbles of air, concerning for possible infection. -- Appreciate orthopedic spine, pain management input Pain control Continue PT OT Appreciate pain management input Anxiety/Mood disorder Continue buspirone, Lamictal Ativan as needed Hypotension BP usually runs low as per patient Continue IV fluids as needed Monitor BP Hypothyroidism Continue levothyroxine Chronic pain/fibromyalgia Continue current medications Postop blood loss anemia Hb Stable Monitor CBC DVT Px: As per Primary Team Admission and Anticipated Discharge Date Admission Date: November 25, 2022 Subjective Patient is seen and examined at bedside Back pain is better controlled today 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 Patient offers no new complaints Ambulated in hallways this morning Saturating well on room air Denies any chest pain, dyspnea, dizziness, nausea, vomiting, abdominal pain Review of Systems Review of Systems: All systems reviewed & are unremarkable except as noted in Subjective Physical Exam Physical Exam: Physical Exam: Vitals signs as noted above General Appearance:Moderately built and nourished, no apparent distress Head: normocephalic, Atraumatic Eyes: normal inspection, EOMI Neck: supple, Trachea midline Respiratory/Chest: Decreased breath sounds, CTA, No accessory muscle use Cardiovascular: S1, S2, No murmur Abdomen/GI:Soft, Non tender, Bowel sounds present Back: Lower paper machine back tender, Surgical site Extremities/Musculoskeletal:normal inspection, no edema Neurologic/Psych:AAOX3, grossly no focal neurological deficits Skin: normal color, warm Results & Data Results & Data Vital Signs (Past 12 Hours) Vital Signs Temp Pulse Resp BP Pulse Ox O2 Del Method O2 Flow Rate 11/27/22 15:39 37.0 C 86 16 96/66 L 95 Room Air 11/27/22 07:37 37.2 C 99 H 16 102/69 98 Nasal Cannula 1 Laboratory Results Short CBC 11/27/22 Range/Units 07:15 WBC 11.37 H (4.8-10.8) K/ul Hgb 8.9 L (12.0-16.0) g/dl Hct 27.7 L (37.0-47.0) % Plt Count 504 H (130-400) K/uL [facility] 11/27/22 07:15 Sodium 139 Potassium 3.7 Chloride 103 Carbon Dioxide 30 BUN 7 Creatinine 0.54 L Glucose 88 Calcium 8.7
[2022-11-27] MEDS: cefTRIAXone SODIUM 2,000 MG in DEXTROSE 5% 50 ML IV SCH (17:08)
[2022-11-27] MEDS: PRAZOSIN HCL 1 MG CAP PO SCH (21:40)
[2022-11-27] MEDS: rOPINIRole HCL 0.25 MG TABLET PO SCH (21:40)
[2022-11-28] MEDS: LEVOTHYROXINE SODIUM 25 MCG TABLET PO SCH (05:55)
[2022-11-28] MEDS: LORazepam 0.5 MG TAB PO PRN (06:26)
[2022-11-28 07:46] LABS: Hematocrit (blood only) 28.8 % (37.0-47.0); Hemoglobin 9.3 g/dl (12.0-16.0); Mean Corpuscular Hemoglobin 25.3 pg (25.0-34.0); Mean Corpuscular Hgb Conc 32.3 g/dL (32.0-36.0); Mean Corpuscular Volume 78.5 fL (80.0-100.0); Mean Platelet Volume 9.6 fL (9.4-12.4); Platelet Count 494 K/uL (130-400); RDW Coefficient of Variation 16.4 % (11.5-14.5); RDW Standard Deviation 46.5 fL (36.4-46.3); Red Blood Count 3.67 M/uL (4.20-5.40); White Blood Count 10.19 K/ul (4.8-10.8)
[2022-11-28 08:13] LABS: BUN Creatinine Ratio 19.7 (10-20); Calcium 8.9 mg/dl (8.6-10.3); Creatinine Clr Calc Pharmacy 73.5 ml/min; Est GFR (African American) 122.5 ml/min; Est GFR (Non-African American) 105.7 ml/min; Potassium 3.9 mmol/L (3.5-5.1)
[2022-11-28] MEDS: METOPROLOL SUCC 25MG EXT REL TAB PO SCH (08:30)
[2022-11-28] MEDS: LURASIDONE HCL 40 MG TAB PO SCH (09:11)
[2022-11-28] MEDS: PREGABALIN 150 MG CAP PO SCH ×3 (09:42→21:38)
[2022-11-28] MEDS: oxyCODONE HCL IR 5 MG TAB (IMMEDIATE RELEASE) PO PRN ×2 (09:42→21:35)
[2022-11-28] MEDS: ADVANCED PROBIOTIC 1250 MG CAPSULE PO SCH (09:44)
[2022-11-28] MEDS: FOLIC ACID 400 MCG TAB PO SCH (09:44)
[2022-11-28] MEDS: DULoxetine HCL 20 MG CAP PO SCH (09:45)
[2022-11-28] MEDS: PANTOprazole 40 MG TAB PO SCH (09:45)
[2022-11-28] MEDS: THIAMINE HCL 50 MG TABLET PO SCH (09:45)
[2022-11-28] MEDS: CYANOCOBALAMIN (B-12) 500 MCG TABLET PO SCH (09:45)
[2022-11-28] MEDS: levETIRAcetam 500 MG TAB PO SCH ×2 (09:45→21:36)
[2022-11-28] MEDS: lamoTRIgine 25 MG TAB PO SCH (09:45)
[2022-11-28] MEDS: busPIRone 5 MG TAB PO SCH ×3 (09:46→21:36)
--- NOTE | 2022-11-28 10:40 | Orthopedic Progress Note ---
Date of Service November 28, 2022 Assessment & Plan (1) History of back surgery: Plan: At this time we will continue physical therapy as tolerated. We will plan for rehab in the next few days when medically stable and bed available. Admission and Anticipated Discharge Date Admission Date: November 25, 2022 Subjective Patient is struggling with anxiety. She states her back and leg symptoms are improving. She is tolerating physical therapy. Physical Exam Physical Exam: On exam she is in bed at this time. Discussing the testing. Incision is intact. No drainage. Results & Data Vital Signs (Past 12 Hours) Vital Signs Temp Pulse Resp BP BP Pulse Ox O2 Del Method 11/28/22 08:28 90/68 L 11/28/22 07:35 88 94/61 L 94 Room Air 11/28/22 07:11 36.9 C 95 H 16 99/67 L 91 Room Air
--- NOTE | 2022-11-28 10:55 | Hospitalist Progress Note ---
Date of Service November 28, 2022 Assessment & Plan (1) History of back surgery: Plan: Complicated UTI Diarrhea Urine culture growing E colii Continue Rocephin, Day#3 Received IV fluids Check stool for C. difficile if recurrence of diarrhea Transition to p.o. antibiotics as able infectious disease consulted, await their input Worsening postop back pain with radiculopathy S/P lumbar decompression fusion surgery by Dr. Acosta on 11/17/2022 --Lumbar CT:Status post posterior decompression and fusion of L4, L5 and S1 with transpedicular screws and connecting rods in place. There are no fluid collections about the posterior elements extending from L3-L5 with tiny bubbles of air, concerning for possible infection. -- Appreciate orthopedic spine, pain management input Pain control Continue PT OT Appreciate pain management input Anxiety/Mood disorder Continue buspirone, Lamictal Ativan as needed Hypotension BP usually runs low as per patient Continue IV fluids as needed Monitor BP Hypothyroidism Continue levothyroxine Chronic pain/fibromyalgia Continue current medications Postop blood loss anemia Hb Stable Monitor CBC Anxiety, claustrophobia Patient requesting room change due to feeling claustrophobic being by the window Has received as needed Ativan Did discuss with charge nurse about possible room change to alleviate anxiety and prevent requiring benzos DVT Px: As per Primary Team Thank you for this consultation. We will follow the patient with you during their hospital stay. You can reach a member of the [facility] Hospitalist Team 04/12 via hospitalist role on tiger text. Admission and Anticipated Discharge Date Admission Date: November 25, 2022 Supervising Physician Co-Signing Physician Notes Patient is seen and examined at bedside. Back pain much improved per patient. No new complaints. Wound culture growing coagulase-negative staph. Urine culture growing E. coli. Discussed with infectious disease and orthopedic surgery today. Physical Exam: Vitals signs as noted above General Appearance:Moderately built and nourished, no apparent distress Head: normocephalic, Atraumatic Eyes: normal inspection, EOMI Neck: supple, Trachea midline Respiratory/Chest: Decreased breath sounds, CTA, No accessory muscle use Cardiovascular: S1, S2, No murmur Abdomen/GI:Soft, Non tender, Bowel sounds present Back: Lower desizing machine back tender, Surgical site Extremities/Musculoskeletal:normal inspection, no edema Neurologic/Psych:AAOX3, grossly no focal neurological deficits Skin: normal color, warm Complicated UTI Postoperative wound growing coagulase-negative staph Hypotension Discussed with infectious disease today. Recommends to start empirically on vancomycin, cefepime and Flagyl Further recommendations as per ID awaited. I personally reviewed the record. Patient is interviewed and examined at bedside. Patient's care is coordinated with Sandrita Salguero PA-C. Please refer to the documentation above for details of patient's presentation and for discussion of other issues. Subjective Patient was seen and examined in room 387. Follow-up lumbar surgery by Dr. Acosta. She feels extremely anxious. States that she suffers from anxiety and claustrophobia in her current living situation as her incredibly anxious. She states a private room would be more ideal, but could tolerate a bed by the hallway. She did require Ativan this morning. She denies fever, chills, sweats, lightheadedness, dizziness, chest pain, shortness breath, nausea, vomiting, abdominal pain. Review of Systems Review of Systems: All systems reviewed & are unremarkable except as noted in HPI & below Physical Exam Physical Exam: Gen: Petite, female, sitting in bedside chair, appears anxious WD/WN, NAD, A&O x3 HEENT: Normocephalic, atraumatic, conjunctivae moist, sclerae anicteric, mucous membranes moist. Lung: Clear to Auscultation bilaterally, no wheezes/rales/rhonchi Heart: Regular rate, regular rhythm, no murmurs, rubs, or gallops Abdomen: Soft, NT, ND +BS x 4 Extremities: No edema Skin: Warm, no rash, negative turgor. : Bonilla catheter still intact Results & Data Results & Data Vital Signs (Past 12 Hours) Vital Signs Temp Pulse Resp BP BP Pulse Ox O2 Del Method 11/28/22 08:28 90/68 L 11/28/22 07:35 88 94/61 L 94 Room Air 11/28/22 07:11 36.9 C 95 H 16 99/67 L 91 Room Air Laboratory Results Short CBC 11/28/22 Range/Units 07:21 WBC 10.19 (4.8-10.8) K/ul Hgb 9.3 L (12.0-16.0) g/dl Hct 28.8 L (37.0-47.0) % Plt Count 494 H (130-400) K/uL BMP 11/28/22 07:21 Sodium 138 Potassium 3.9 Chloride 102 Carbon Dioxide 27 BUN 12 Creatinine 0.61 Glucose 91 Calcium 8.9 Medications Administered Current Inpatient Medications Acetaminophen (Acetaminophen 500 Mg Tab) 1,000 mg PO Q8H PRN PRN Reason: MILD Pain Scale 1,2,3 & Pre PT Stop: 12/25/22 20:52 Last Admin: 11/27/22 10:11 Dose: 1,000 mg Buspirone HCl (Buspirone 5 Mg Tab) 5 mg PO TID [facility] Stop: 12/25/22 20:59 Last Admin: 11/28/22 09:46 Dose: 5 mg Cyanocobalamin (Cyanocobalamin (B-12) 500 Mcg Tablet) 1,000 mcg PO QAM [facility] Stop: 12/26/22 08:59 Last Admin: 11/28/22 09:45 Dose: 1,000 mcg Duloxetine HCl (Duloxetine Hcl 20 Mg Cap) 40 mg PO QAM [facility] Stop: 12/26/22 08:59 Last Admin: 11/28/22 09:45 Dose: 40 mg Folic Acid (Folic Acid 400 Mcg Tab) 400 mcg PO QAM [facility] Stop: 12/26/22 08:59 Last Admin: 11/28/22 09:44 Dose: 400 mcg Promethazine HCl 12.5 mg/ (Sodium Chloride) 50.5 mls @ 202 mls/hr IV Q6H PRN PRN Reason: Nausea &/or Vomiting Stop: 12/25/22 20:52 Ceftriaxone Sodium 2,000 mg/ (Dextrose) 70 mls @ 100 mls/hr IV Q24H [facility]; Protocol Stop: 12/06/22 17:59 Last Infusion: 11/27/22 17:50 Dose: Infused Lactobacillus Acidophilus (Advanced Probiotic 1250 Mg Capsule) 2 cap PO DAILY [facility] Stop: 12/26/22 08:59 Last Admin: 11/28/22 09:44 Dose: 2 cap Lamotrigine (Lamotrigine 25 Mg Tab) 25 mg PO QAM [facility] Stop: 12/26/22 08:59 Last Admin: 11/28/22 09:45 Dose: 25 mg Levetiracetam (Levetiracetam 500 Mg Tab) 500 mg PO BID [facility] Stop: 12/25/22 20:59 Last Admin: 11/28/22 09:45 Dose: 500 mg Levothyroxine Sodium (Levothyroxine Sodium 25 Mcg Tablet) 25 mcg PO TuTh@0630 [facility] Stop: 12/28/22 06:29 Last Admin: 11/28/22 05:55 Dose: 25 mcg Levothyroxine Sodium (Levothyroxine Sodium 50 Mcg Tablet) 50 mcg PO SuMoWeFrSa@0630 [facility] Stop: 12/29/22 06:29 Lorazepam (Lorazepam 0.5 Mg Tab) 0.5 mg PO BID PRN PRN Reason: Anxiety Stop: 12/26/22 10:42 Last Admin: 11/28/22 06:26 Dose: 0.5 mg Lurasidone HCl (Lurasidone Hcl 40 Mg Tab) [address] [facility] Stop: 12/26/22 08:59 Last Admin: 11/28/22 09:11 Dose: Not Given Metoclopramide HCl (Metoclopramide Hcl Inj 5 Mg/Ml 2 Ml Vial) 10 mg IV Q6H PRN PRN Reason: Nausea &/or Vomiting Stop: 12/25/22 20:52 Metoprolol Succinate (Metoprolol Succ 25mg Ext Rel Tab) [address] [facility] Stop: 12/26/22 08:59 Last Admin: 11/28/22 08:30 Dose: Not Given Mirtazapine (Mirtazapine Tab 15 Mg Tab) 15 mg PO HS PRN PRN Reason: Sleep Stop: 12/25/22 20:52 Naloxone HCl (Naloxone Hcl 0.4 Mg/1 Ml Vial/Carp) 0.1 mg IV Q5M PRN PRN Reason: Oversedation/respiratory dep Stop: 12/25/22 20:52 Naloxone HCl (Naloxone Hcl 0.4 Mg/1 Ml Vial/Carp) 0.1 mg IV Q5M PRN; Protocol PRN Reason: Oversedation/Resp Depression Stop: 12/10/22 10:22 Ondansetron HCl (Ondansetron Inj 2 Mg/Ml 2 Ml Vial) 4 mg IV Q6H PRN PRN Reason: Nausea &/or Vomiting Stop: 12/25/22 20:52 Ondansetron HCl (Ondansetron 4 Mg Od Tab) 4 mg PO Q6H PRN PRN Reason: Nausea Stop: 12/25/22 20:52 Oxycodone HCl (Oxycodone Hcl Ir 5 Mg Tab (Immediate Release)) 5 mg PO Q4 PRN PRN Reason: Pain Stop: 12/10/22 10:20 Last Admin: 11/28/22 09:42 Dose: 5 mg Pantoprazole Sodium (Pantoprazole 40 Mg Tab) 40 mg PO QAM JUAN C Stop: 12/26/22 08:59 Last Admin: 11/28/22 09:45 Dose: 40 mg Potassium Chloride (Potassium Chloride Crtab 20 Meq Tabcr) 20 meq PO QDL JUAN C Stop: 12/26/22 11:29 Last Admin: 11/27/22 12:27 Dose: 20 meq Prazosin HCl (Prazosin Hcl 1 Mg Cap) 2 mg PO HS JUAN C Stop: 12/25/22 20:59 Last Admin: 11/27/22 21:40 Dose: 2 mg Pregabalin (Pregabalin 150 Mg Cap) 150 mg PO TID JUAN C Stop: 12/25/22 21:59 Last Admin: 11/28/22 09:42 Dose: 150 mg Ropinirole HCl (Ropinirole Hcl 0.25 Mg Tablet) 0.5 mg PO HS JUAN C Stop: 12/25/22 20:59 Last Admin: 11/27/22 21:40 Dose: 0.5 mg Thiamine HCl (Thiamine Hcl 50 Mg Tablet) 50 mg PO QAM JUAN C Stop: 12/26/22 08:59 Last Admin: 11/28/22 09:45 Dose: 50 mg
[2022-11-28] MEDS: POTASSIUM CHLORIDE CRTAB 20 MEQ TABCR PO SCH (12:25)
[2022-11-28] MEDS: ACETAMINOPHEN 500 MG TAB PO PRN (13:19)
[2022-11-28] MEDS: hydrOXYzine HCl 25 MG TAB PO PRN (13:59)
[2022-11-28] MEDS ORDERED: VANCOMYCIN HCL 1,000 MG in SODIUM CHLORIDE 0.9% 250 ML IV STA (15:40)
[2022-11-28] MEDS ORDERED: VANCOMYCIN CONSULT ACTIVE PRN (15:40)
[2022-11-28] MEDS ORDERED: VANCOMYCIN HCL 1,250 MG in SODIUM CHLORIDE 0.9% 250 ML IV STA (16:02)
[2022-11-28] MEDS: CEFEPIME 2,000 MG in SYRINGE 0 ML IV SCH (16:26)
[2022-11-28] MEDS: metroNIDAZOLE 500 MG/100 ML BAG IV SCH (16:38)
[2022-11-28] MEDS: rOPINIRole HCL 0.25 MG TABLET PO SCH (21:35)
[2022-11-28] MEDS: PRAZOSIN HCL 1 MG CAP PO SCH (21:36)
[2022-11-29] MEDS: metroNIDAZOLE 500 MG/100 ML BAG IV SCH ×4 (00:14→23:51)
[2022-11-29] MEDS: VANCOMYCIN HCL 750 MG in SODIUM CHLORIDE 0.9% 250 ML IV SCH ×4 (00:14→23:51)
[2022-11-29] MEDS: CEFEPIME 2,000 MG in SYRINGE 0 ML IV SCH ×4 (00:14→23:51)
[2022-11-29] MEDS: LEVOTHYROXINE SODIUM 50 MCG TABLET PO SCH (05:21)
[2022-11-29] MEDS: oxyCODONE HCL IR 5 MG TAB (IMMEDIATE RELEASE) PO PRN ×3 (05:21→21:48)
--- NOTE | 2022-11-29 09:08 | Orthopedic Progress Note ---
Date of Service November 29, 2022 Assessment & Plan (1) Lower back pain: Plan: Bettina is status post I&D lumbar spine recent revision surgery lumbar spine. Currently awaiting blood culture results. We will continue with physical therapy. Also awaiting approval and bed availability at [facility] for discharge. Admission and Anticipated Discharge Date Admission Date: November 25, 2022 Subjective Bettina is status post I&D of lumbar spine. One of the wound cultures is growing out coag negative staph. She also has a complicated urinary tract infection. Infectious disease was consulted yesterday. She is currently on IV Vanco and cefepime. Blood cultures are pending. She still reports reports a good bit of back and leg pain. Yesterday in physical therapy ambling roughly 26 feet Review of Systems Review of Systems: All systems reviewed & are unremarkable except as noted in HPI & below Physical Exam Physical Exam: She is laying on her side in no acute distress she was asleep but easily awakened Alert and oriented times Lumbar dressing is clean dry and intact Calf soft nontender bilateral lower extremities Results & Data Vital Signs (Past 12 Hours) Vital Signs Temp Pulse Resp BP Pulse Ox O2 Del Method 11/29/22 07:24 36.6 C 93 H 16 104/71 96 Room Air (1) Lower back pain Back pain laterality: midline Chronicity: acute Sciatica presence: unspecified whether sciatica present Qualified Code(s): M54.50 - Low back pain, unspecified
[2022-11-29] MEDS: ADVANCED PROBIOTIC 1250 MG CAPSULE PO SCH (09:13)
[2022-11-29] MEDS: levETIRAcetam 500 MG TAB PO SCH ×2 (09:13→21:49)
[2022-11-29] MEDS: busPIRone 5 MG TAB PO SCH ×3 (09:13→21:49)
[2022-11-29] MEDS: DULoxetine HCL 20 MG CAP PO SCH (09:14)
[2022-11-29] MEDS: LURASIDONE HCL 40 MG TAB PO SCH (09:14)
[2022-11-29] MEDS: THIAMINE HCL 50 MG TABLET PO SCH (09:15)
[2022-11-29] MEDS: FOLIC ACID 400 MCG TAB PO SCH (09:15)
[2022-11-29] MEDS: lamoTRIgine 25 MG TAB PO SCH (09:15)
[2022-11-29] MEDS: PANTOprazole 40 MG TAB PO SCH (09:15)
[2022-11-29] MEDS: CYANOCOBALAMIN (B-12) 500 MCG TABLET PO SCH (09:15)
[2022-11-29] MEDS: PREGABALIN 150 MG CAP PO SCH ×3 (09:19→21:51)
[2022-11-29] MEDS: METOPROLOL SUCC 25MG EXT REL TAB PO SCH (09:21)
[2022-11-29 10:34] LABS: Creatinine Clr Calc Pharmacy 70.1 ml/min; Est GFR (African American) 120.6 ml/min; Est GFR (Non-African American) 104.1 ml/min
[2022-11-29] MEDS: POTASSIUM CHLORIDE CRTAB 20 MEQ TABCR PO SCH (11:41)
[2022-11-29] MEDS: hydrOXYzine HCl 25 MG TAB PO PRN (12:39)
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
[2022-11-29] MEDS: LORazepam 0.5 MG TAB PO PRN (15:17)
--- NOTE | 2022-11-29 15:48 | Hospitalist Progress Note ---
Date of Service November 29, 2022 Assessment & Plan (1) History of back surgery: Plan: Complicated UTI Diarrhea Urine culture growing E colii Continue Rocephin, Day#4 Received IV fluids Check stool for C. difficile if recurrence of diarrhea Transition to p.o. antibiotics as able infectious disease consulted, who is recommending IV Vanco, cefepime and flagyl for now blood culture still pending Urine culture: e coli Back superficial culture 11/17, coag negative staph Worsening postop back pain with radiculopathy S/P lumbar decompression fusion surgery revision by Dr. Acosta on 11/17/2022 --Lumbar CT:Status post posterior decompression and fusion of L4, L5 and S1 with transpedicular screws and connecting rods in place. There are no fluid collections about the posterior elements extending from L3-L5 with tiny bubbles of air, concerning for possible infection. -- Appreciate orthopedic spine, pain management input Incision warm/erythematous - currently on broad spectrum antibiotic with vanco, cefepime and flagyl Continue PT OT Appreciate pain management input Anxiety/Mood disorder Continue buspirone, Lamictal d/c prn ativan as pt stated she had a withdrawal seizure from it in past pt requesting psych consult for depression, she wants to go home Hypotension BP usually runs low as per patient Continue IV fluids as needed Monitor BP - improving Hypothyroidism Continue levothyroxine Chronic pain/fibromyalgia Continue current medications Postop blood loss anemia Hb Stable Monitor CBC DVT Px: As per Primary Team Thank you for this consultation. We will follow the patient with you during their hospital stay. You can reach a member of the [facility] Hospitalist Team 04/12 via hospitalist role on tiger text. Admission and Anticipated Discharge Date Admission Date: November 25, 2022 Supervising Physician Co-Signing Physician Notes Patient is seen and examined at bedside. Patient reports having some drainage from surgical incision on her back. Also reports mild erythema, increased pain. Denies any chest pain, dyspnea, dizziness, vomiting, abdominal pain. Wound culture growing coagulase-negative staph. Urine culture grew E. coli. Blood cultures pending. Physical Exam: Vitals signs as noted above General Appearance:Moderately built and nourished, no apparent distress Head: normocephalic, Atraumatic Eyes: normal inspection, EOMI Neck: supple, Trachea midline Respiratory/Chest: Decreased breath sounds, CTA, No accessory muscle use Cardiovascular: S1, S2, No murmur Abdomen/GI:Soft, Non tender, Bowel sounds present Back: Lower netbackup admin, Surgical site, erythematous Extremities/Musculoskeletal:normal inspection, no edema Neurologic/Psych:AAOX3, grossly no focal neurological deficits Skin: normal color, warm Complicated UTI Postoperative wound growing coagulase-negative staph Hypotension Continue Vancomycin, cefepime and Flagyl as per ID Follow-up cultures Possible need for I&D if fails conservative management I personally reviewed the record. Patient is interviewed and examined at bedside. Patient's care is coordinated with Sandrita Salguero PA-C. Please refer to the documentation above for details of patient's presentation and for discussion of other issues. Subjective Patient was seen and examined in room 387. Follow-up lumbar surgery by Dr. Acosta. She feels her anxiety has improved; however she wants to go home and is questioning when she will be able to go home. It is her understanding that she will not undergo I&D. She continues to have back pain. She also complains of urinary incontinence when standing up ever since always been removed. She is requesting urology consult. She denies fever, chills, sweats, lightheadedness, dizziness, chest pain, shortness of breath, nausea, vomiting, abdominal pain. Review of Systems Review of Systems: All systems reviewed & are unremarkable except as noted in HPI & below Physical Exam 2 Physical Exam: Gen: Petite, female, lying in bed, flat affect, WD/WN, NAD, A&O x3 HEENT: Normocephalic, atraumatic, conjunctivae moist, sclerae anicteric, mucous membranes moist. Lung: Clear to Auscultation bilaterally, no wheezes/rales/rhonchi Heart: Regular rate, regular rhythm, no murmurs, rubs, or gallops Abdomen: Soft, NT, ND +BS x 4 Extremities: No edema, lumbar incision firm superiorly, red/warm Skin: Warm, no rash, negative turgor. Results & Data Results & Data Vital Signs (Past 12 Hours) Vital Signs Temp Pulse Pulse Resp BP BP Pulse Ox 11/29/22 14:26 36.9 C 98 H 16 116/77 92 11/29/22 11:18 37.0 C 89 18 114/82 95 11/29/22 10:59 82 07/19/23 10:47 36.7 C 11/29/22 09:17 118 H 102/66 11/29/22 07:24 36.6 C 93 H 16 104/71 96 O2 Del Method 11/29/22 14:26 Room Air 11/29/22 11:18 Room Air 11/29/22 10:59 11/29/22 10:47 11/29/22 09:17 11/29/22 07:24 Room Air Medications Administered Current Inpatient Medications Acetaminophen (Acetaminophen 500 Mg Tab) 1,000 mg PO Q8H PRN PRN Reason: MILD Pain Scale 1,2,3 & Pre PT Stop: 12/25/22 20:52 Last Admin: 11/28/22 13:19 Dose: 1,000 mg Buspirone HCl (Buspirone 5 Mg Tab) 5 mg PO TID [facility] Stop: 12/25/22 20:59 Last Admin: 11/29/22 13:41 Dose: 5 mg Cyanocobalamin (Cyanocobalamin (B-12) 500 Mcg Tablet) [facility] Stop: 12/26/22 08:59 Last Admin: 11/29/22 09:15 Dose: 1,000 mcg Duloxetine HCl (Duloxetine Hcl 20 Mg Cap) [facility] Stop: 12/26/22 08:59 Last Admin: 11/29/22 09:14 Dose: 40 mg Folic Acid (Folic Acid 400 Mcg Tab) [facility] Stop: 12/26/22 08:59 Last Admin: 11/29/22 09:15 Dose: 400 mcg Hydroxyzine HCl (Hydroxyzine Hcl 25 Mg Tab) 25 mg PO BID PRN PRN Reason: anxiety Stop: 12/28/22 13:37 Last Admin: 11/29/22 12:39 Dose: 25 mg Promethazine HCl 12.5 mg/ (Sodium Chloride) 50.5 mls @ 202 mls/hr IV Q6H PRN PRN Reason: Nausea &/or Vomiting Stop: 12/25/22 20:52 Cefepime HCl 2,000 mg/ Syringe 20 mls @ 5 mls/min IV Q8H JUAN C; Protocol Stop: 01/09/23 15:59 Last Admin: 11/29/22 09:05 Dose: 5 mls/min Metronidazole (Flagyl) 500 mg in 100 mls @ 100 mls/hr IV Q8H [facility]; Protocol Stop: 01/09/23 15:59 Last Infusion: 11/29/22 10:14 Dose: Infused Vancomycin HCl 750 mg/ Sodium (Chloride) 265 mls @ 200 mls/hr IV Q8H [facility] Stop: 01/10/23 00:00 Last Infusion: 11/29/22 10:36 Dose: Infused Lactobacillus Acidophilus (Advanced Probiotic 1250 Mg Capsule) 2 cap PO DAILY [facility] Stop: 12/26/22 08:59 Last Admin: 11/29/22 09:13 Dose: 2 cap Lamotrigine (Lamotrigine 25 Mg Tab) 25 mg PO QAM [facility] Stop: 12/26/22 08:59 Last Admin: 11/29/22 09:15 Dose: 25 mg Levetiracetam (Levetiracetam 500 Mg Tab) 500 mg PO BID [facility] Stop: 12/25/22 20:59 Last Admin: 11/29/22 09:13 Dose: 500 mg Levothyroxine Sodium (Levothyroxine Sodium 25 Mcg Tablet) 25 mcg PO TuTh@0630 [facility] Stop: 12/28/22 06:29 Last Admin: 11/28/22 05:55 Dose: 25 mcg Levothyroxine Sodium (Levothyroxine Sodium 50 Mcg Tablet) 50 mcg PO SuMoWeFrSa@0630 [facility] Stop: 12/29/22 06:29 Last Admin: 11/29/22 05:21 Dose: 50 mcg Lorazepam (Lorazepam 0.5 Mg Tab) 0.5 mg PO BID PRN PRN Reason: Anxiety Stop: 12/26/22 10:42 Last Admin: 11/29/22 15:17 Dose: 0.5 mg Lurasidone HCl (Lurasidone Hcl 40 Mg Tab) 40 mg PO QAM [facility] Stop: 12/26/22 08:59 Last Admin: 11/29/22 09:14 Dose: 40 mg Metoclopramide HCl (Metoclopramide Hcl Inj 5 Mg/Ml 2 Ml Vial) 10 mg IV Q6H PRN PRN Reason: Nausea &/or Vomiting Stop: 12/25/22 20:52 Metoprolol Succinate (Metoprolol Succ 25mg Ext Rel Tab) 25 mg PO QAM [facility] Stop: 12/26/22 08:59 Last Admin: 11/29/22 09:21 Dose: 25 mg Mirtazapine (Mirtazapine Tab 15 Mg Tab) 15 mg PO HS PRN PRN Reason: Sleep Stop: 12/25/22 20:52 Miscellaneous Information (Vancomycin Consult Active) 1 each N/A UD PRN PRN Reason: Consult Stop: 12/28/22 15:39 Naloxone HCl (Naloxone Hcl 0.4 Mg/1 Ml Vial/Carp) 0.1 mg IV Q5M PRN PRN Reason: Oversedation/respiratory dep Stop: 12/25/22 20:52 Naloxone HCl (Naloxone Hcl 0.4 Mg/1 Ml Vial/Carp) 0.1 mg IV Q5M PRN; Protocol PRN Reason: Oversedation/Resp Depression Stop: 12/10/22 10:22 Ondansetron HCl (Ondansetron Inj 2 Mg/Ml 2 Ml Vial) 4 mg IV Q6H PRN PRN Reason: Nausea &/or Vomiting Stop: 12/25/22 20:52 Ondansetron HCl (Ondansetron 4 Mg Od Tab) 4 mg PO Q6H PRN PRN Reason: Nausea Stop: 12/25/22 20:52 Oxycodone HCl (Oxycodone Hcl Ir 5 Mg Tab (Immediate Release)) 5 mg PO Q4 PRN PRN Reason: Pain Stop: 12/10/22 10:20 Last Admin: 11/29/22 05:21 Dose: 5 mg Pantoprazole Sodium (Pantoprazole 40 Mg Tab) 40 mg PO QAM JUAN C Stop: 12/26/22 08:59 Last Admin: 11/29/22 09:15 Dose: 40 mg Potassium Chloride (Potassium Chloride Crtab 20 Meq Tabcr) 20 meq PO QDL JUAN C Stop: 12/26/22 11:29 Last Admin: 11/29/22 11:41 Dose: 20 meq Prazosin HCl (Prazosin Hcl 1 Mg Cap) 2 mg PO HS JUAN C Stop: 12/25/22 20:59 Last Admin: 11/28/22 21:36 Dose: 2 mg Pregabalin (Pregabalin 150 Mg Cap) 150 mg PO TID JUAN C Stop: 12/25/22 21:59 Last Admin: 11/29/22 13:41 Dose: 150 mg Ropinirole HCl (Ropinirole Hcl 0.25 Mg Tablet) 0.5 mg PO HS JUAN C Stop: 12/25/22 20:59 Last Admin: 11/28/22 21:35 Dose: 0.5 mg Thiamine HCl (Thiamine Hcl 50 Mg Tablet) 50 mg PO QAM JUAN C Stop: 12/26/22 08:59 Last Admin: 11/29/22 09:15 Dose: 50 mg
[2022-11-29] MEDS: ACETAMINOPHEN 500 MG TAB PO PRN (19:21)
[2022-11-29] MEDS: PRAZOSIN HCL 1 MG CAP PO SCH (21:49)
[2022-11-29] MEDS: rOPINIRole HCL 0.25 MG TABLET PO SCH (21:49)
[2022-11-30] MEDS: LEVOTHYROXINE SODIUM 25 MCG TABLET PO SCH (05:48)
[2022-11-30] MEDS: oxyCODONE HCL IR 5 MG TAB (IMMEDIATE RELEASE) PO PRN ×4 (06:32→23:16)
[2022-11-30] MEDS ORDERED: VANCOMYCIN LEVEL ONE (07:30)
[2022-11-30 08:02] LABS: Hematocrit (blood only) 27.1 % (37.0-47.0); Hemoglobin 8.7 g/dl (12.0-16.0); Mean Corpuscular Hemoglobin 25.2 pg (25.0-34.0); Mean Corpuscular Hgb Conc 32.1 g/dL (32.0-36.0); Mean Corpuscular Volume 78.6 fL (80.0-100.0); Mean Platelet Volume 9.6 fL (9.4-12.4); Platelet Count 548 K/uL (130-400); RDW Coefficient of Variation 16.6 % (11.5-14.5); Red Blood Count 3.45 M/uL (4.20-5.40); White Blood Count 7.61 K/ul (4.8-10.8)
[2022-11-30 08:08] LABS: BUN Creatinine Ratio 17.2 (10-20); Calcium 8.7 mg/dl (8.6-10.3); Creatinine Clr Calc Pharmacy 77.3 ml/min; Est GFR (African American) 124.6 ml/min; Est GFR (Non-African American) 107.5 ml/min
--- NOTE | 2022-11-30 08:32 | Orthopedic Progress Note ---
Date of Service November 30, 2022 Assessment & Plan (1) Lower back pain: Plan: This time we discussed with her possible irrigation debridement lumbar spine tomorrow. She is comfortable with this plan. I will make her n.p.o. after midnight plan for surgery tomorrow. Admission and Anticipated Discharge Date Admission Date: November 25, 2022 Subjective Back pain is controlled leg pain improving. She is tolerating physical therapy. Urination is improved Physical Exam Physical Exam: Patient is good strength testing. She moves about the bed without evidence of gross antalgia. Lumbar incision continues to have modest erythema and some serous drainage. Results & Data Vital Signs (Past 12 Hours) Vital Signs Temp Pulse Resp BP BP Pulse Ox O2 Del Method 11/30/22 07:28 37.1 C 85 14 114/71 93 Room Air 11/29/22 20:42 37 C 96 H 16 109/72 95 Room Air (1) Lower back pain Back pain laterality: midline Chronicity: acute Sciatica presence: unspecified whether sciatica present Qualified Code(s): M54.50 - Low back pain, unspecified
--- NOTE | 2022-11-30 09:09 | Pharmacy Report ---
Pharmacy PK ABX Note - Date of Service November 30, 2022 - Assessment and Plan Assessment 52 year old F receiving vancomycin/cefepime/flagyl for treatment of possible surgical site infection. Pertinent microbiologic data includes: back culture growing coag negative staph. Day # 3/? of antimicrobial therapy. Plan Vancomycin * Loading dose: 1250 mg IV x 1 * Maintenance dose: 750 mg IV every 8 hours; trough level of 17.8 mcg/mL on 11/30/22 indicates below * Regimen is predicted to achieve target AUC/JEFFY of 400-600 mg/L.hr with 14% chance for nephrotoxicity * Random level ordered if vancomycin continued > 5 days Pharmacy will continue to follow and will adjust dose/frequency as necessary. Thank you. Pharmacy has transitioned to AUC monitoring for vancomycin. AUC/JEFFY is the preferred PK/PD target and is associated with decreased risk of nephrotoxicity compared to traditional trough targets.
[2022-11-30] MEDS: FOLIC ACID 400 MCG TAB PO SCH (10:06)
[2022-11-30] MEDS: metroNIDAZOLE 500 MG/100 ML BAG IV SCH ×3 (10:06→23:16)
[2022-11-30] MEDS: PANTOprazole 40 MG TAB PO SCH (10:07)
[2022-11-30] MEDS: THIAMINE HCL 50 MG TABLET PO SCH (10:07)
[2022-11-30] MEDS: ADVANCED PROBIOTIC 1250 MG CAPSULE PO SCH (10:07)
[2022-11-30] MEDS: DULoxetine HCL 20 MG CAP PO SCH (10:07)
[2022-11-30] MEDS: levETIRAcetam 500 MG TAB PO SCH ×2 (10:07→20:03)
[2022-11-30] MEDS: METOPROLOL SUCC 25MG EXT REL TAB PO SCH (10:07)
[2022-11-30] MEDS: CYANOCOBALAMIN (B-12) 500 MCG TABLET PO SCH (10:07)
[2022-11-30] MEDS: busPIRone 5 MG TAB PO SCH ×3 (10:07→20:03)
[2022-11-30] MEDS: LURASIDONE HCL 40 MG TAB PO SCH (10:08)
[2022-11-30] MEDS: lamoTRIgine 25 MG TAB PO SCH (10:08)
[2022-11-30] MEDS: PREGABALIN 150 MG CAP PO SCH ×3 (10:16→20:07)
[2022-11-30] MEDS: CEFEPIME 2,000 MG in SYRINGE 0 ML IV SCH ×3 (10:16→23:16)
[2022-11-30] MEDS: VANCOMYCIN HCL 750 MG in SODIUM CHLORIDE 0.9% 250 ML IV SCH ×2 (10:16→18:30)
[2022-11-30] MEDS: ACETAMINOPHEN 500 MG TAB PO PRN (11:45)
[2022-11-30] MEDS: POTASSIUM CHLORIDE CRTAB 20 MEQ TABCR PO SCH (14:49)
[2022-11-30] MEDS: LORazepam 0.5 MG TAB PO PRN (14:49)
--- NOTE | 2022-11-30 15:42 | Hospitalist Progress Note ---
Date of Service November 30, 2022 Assessment & Plan (1) History of back surgery: Plan: Complicated UTI Urine culture growing E coli Infectious disease consulted, who is recommending IV Vanco, cefepime for possible SSI infection as below Blood culture - no growth in 24hr Worsening postop back pain with radiculopathy S/P lumbar decompression fusion surgery revision by Dr. Acosta on 11/17/2022 --Lumbar CT:Status post posterior decompression and fusion of L4, L5 and S1 with transpedicular screws and connecting rods in place. There are no fluid collections about the posterior elements extending from L3-L5 with tiny bubbles of air, concerning for possible infection. Back superficial culture 11/17, coag negative staph -- Appreciate orthopedic spine, pain management input Incision warm/erythematous - currently on broad spectrum antibiotic with vanco, cefepime and flagyl Planning for OR tomorrow for irrigation debridement lumbar spine Continue PT OT Anxiety/Mood disorder Continue buspirone, Lamictal d/c prn ativan as pt stated she had a withdrawal seizure from it in past pt requesting psych consult for depression, she wants to go home Hypotension BP usually runs low as per patient Continue IV fluids as needed Monitor BP - improving Hypothyroidism Continue levothyroxine Chronic pain/fibromyalgia Continue current medications Postop blood loss anemia Hb Stable Monitor CBC I spent a total of 45 minutes coordinating, documenting, and providing care for this patient excluding time spent in the performance of separately billed services. Admission and Anticipated Discharge Date Admission Date: November 25, 2022 Supervising Physician Co-Signing Physician Notes Patient is seen and examined at bedside. States feeling better today. Back pain is controlled. Denies any chest pain, dyspnea, dizziness, vomiting, abdominal pain. Wound culture growing coagulase-negative staph. Urine culture grew E. c karen. Blood cultures negative to date. Plan for incision and drainage of lumbar spine tomorrow. Physical Exam: Vitals signs as noted above General Appearance:Moderately built and nourished, no apparent distress Head: normocephalic, Atraumatic Eyes: normal inspection, EOMI Neck: supple, Trachea midline Respiratory/Chest: Decreased breath sounds, CTA, No accessory muscle use Cardiovascular: S1, S2, No murmur Abdomen/GI:Soft, Non tender, Bowel sounds present Back: Lower half backer, Surgical site, erythematous Extremities/Musculoskeletal:normal inspection, no edema Neurologic/Psych:AAOX3, grossly no focal neurological deficits Skin: normal color, warm Complicated UTI Postoperative wound growing coagulase-negative staph Hypotension Continue Vancomycin, cefepime and Flagyl as per ID Follow-up cultures Scheduled for I&D of lumbar spine tmw NPO after midnight Adjust medications based on operative cultures I personally reviewed the record. Patient is interviewed and examined at [facility]. Patient's care is coordinated with Sandrita Salguero PA-C. Please refer to the documentation above for details of patient's presentation and for discussion of other issues. Subjective Seen and examined in 388-1. Feeling okay today but fatigued from not sleeping much last evening. Was told by Dr. Acosta she will go for I&D in the morning. Having back pain near incision site. Catheter removed and patient with bladder scan as needed. She denies fever, chills, sweats, lightheadedness, dizziness, chest pain, shortness of breath, nausea, vomiting, abdominal pain. Review of Systems Review of Systems: At least ten systems reviewed and negative except as noted in the HPI. Physical Exam Physical Exam: Gen: WD/WN, NAD, lying on side, A&Ox3 HEENT: Normocephalic, atraumatic, conjunctivae moist, sclerae anicteric, mucous membranes moist Lung: Clear to Auscultation bilaterally, no wheezes/rales/rhonchi Heart: Regular rate, regular rhythm, no murmurs, rubs, or gallops Abdomen: Soft, NT, ND +BS x 4 Extremities: + Lumbar surgical site with lumbar incision firm superiorly, red/warm Skin: Warm, no rash Results & Data Results & Data Vital Signs (Past 12 Hours) Vital Signs Temp Pulse Resp BP BP Pulse Ox O2 Del Method 11/30/22 15:40 36.9 C 83 16 98/67 L 93 Room Air 11/30/22 07:28 37.1 C 85 14 114/71 93 Room Air Laboratory Results Short CBC 11/30/22 Range/Units 07:29 WBC 7.61 (4.8-10.8) K/ul Hgb 8.7 L (12.0-16.0) g/dl Hct 27.1 L (37.0-47.0) % Plt Count 548 H (130-400) K/uL BMP 11/30/22 07:29 Sodium 139 Potassium 4.0 Chloride 104 Carbon Dioxide 29 BUN 10 Creatinine 0.58 L Glucose 93 Calcium 8.7 Diagnostic Findings Lumbar Spine CT 11/25/22 20:53 CR Exam(s): CT L SPINE IV Amt: OPTIRAY 320 94ML EXAM: CT Lumbar Spine With Intravenous Contrast CLINICAL HISTORY: Reason for exam: postop pain. TECHNIQUE: Axial computed tomography images of the lumbar spine with intravenous contrast. Automated exposure control was utilized for the study. A dose lowering technique was utilized adhering to the principles of ALARA. CONTRAST: Patient received OPTIRAY 320 94ML of IV contrast COMPARISON: Comparison made to prior CT scan lumbar spine from August 16, 2022. FINDINGS: Vertebrae: Patient is status post posterior decompression at L4 and L5 with posterior fusion of L4, L5 and S1. Metallic interbody fusion devices in place at L4-5 and L5-S1. No evidence of surgical hardware complication. There is a remote fracture deformity of the T12, L1 and L2 segments. No acute fracture. 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 There is advanced arthropathy of the left SI joint. Discs/spinal canal/neural foramina: No acute findings. No spinal canal stenosis. Soft tissues: There are fluid collections about the posterior elements at L3, L4 and L5 with tiny bubbles of air, which may represent infection. There is a small fluid collection in the subcutaneous fat overlying the operative site. IMPRESSION: Status post posterior decompression and fusion of L4, L5 and S1 with transpedicular screws and connecting rods in place. There are no fluid collections about the posterior elements extending from L3-L5 with tiny bubbles of air, concerning for possible infection. Communications: Verify Receipt with Nurse Electronically signed by: Lila Desir MD 11/25/22 23:47 PM
[2022-11-30] MEDS: rOPINIRole HCL 0.25 MG TABLET PO SCH (20:03)
[2022-11-30] MEDS: PRAZOSIN HCL 1 MG CAP PO SCH (20:03)
[2022-12-01] MEDS: VANCOMYCIN HCL 750 MG in SODIUM CHLORIDE 0.9% 250 ML IV SCH ×4 (00:59→23:24)
[2022-12-01] MEDS: MIRTAZAPINE TAB 15 MG TAB PO PRN (02:33)
[2022-12-01] MEDS: LEVOTHYROXINE SODIUM 50 MCG TABLET PO SCH (05:38)
[2022-12-01 07:03] LABS: Hematocrit (blood only) 29.7 % (37.0-47.0); Hemoglobin 9.8 g/dl (12.0-16.0); Mean Corpuscular Hemoglobin 25.1 pg (25.0-34.0); Mean Corpuscular Volume 76.2 fL (80.0-100.0); Mean Platelet Volume 9.5 fL (9.4-12.4); Platelet Count 611 K/uL (130-400); RDW Coefficient of Variation 16.8 % (11.5-14.5); RDW Standard Deviation 45.8 fL (36.4-46.3); White Blood Count 8.74 K/ul (4.8-10.8)
[2022-12-01 07:21] LABS: BUN Creatinine Ratio 14.1 (10-20); Creatinine Clr Calc Pharmacy 70.1 ml/min; Est GFR (African American) 120.6 ml/min; Est GFR (Non-African American) 104.1 ml/min; Potassium 3.6 mmol/L (3.5-5.1)
[2022-12-01] MEDS: ADVANCED PROBIOTIC 1250 MG CAPSULE PO SCH (08:59)
[2022-12-01] MEDS: CYANOCOBALAMIN (B-12) 500 MCG TABLET PO SCH (08:59)
[2022-12-01] MEDS: FOLIC ACID 400 MCG TAB PO SCH (08:59)
[2022-12-01] MEDS: lamoTRIgine 25 MG TAB PO SCH (08:59)
[2022-12-01] MEDS: DULoxetine HCL 20 MG CAP PO SCH (08:59)
[2022-12-01] MEDS: PANTOprazole 40 MG TAB PO SCH (08:59)
[2022-12-01] MEDS: THIAMINE HCL 50 MG TABLET PO SCH (08:59)
[2022-12-01] MEDS: busPIRone 5 MG TAB PO SCH ×3 (09:00→21:31)
[2022-12-01] MEDS: LURASIDONE HCL 40 MG TAB PO SCH (09:00)
[2022-12-01] MEDS: levETIRAcetam 500 MG TAB PO SCH ×2 (09:00→21:32)
[2022-12-01] MEDS: METOPROLOL SUCC 25MG EXT REL TAB PO SCH (09:04)
[2022-12-01] MEDS: PREGABALIN 150 MG CAP PO SCH ×3 (09:07→21:31)
[2022-12-01] MEDS: metroNIDAZOLE 500 MG/100 ML BAG IV SCH ×2 (09:07→17:50)
[2022-12-01] MEDS: CEFEPIME 2,000 MG in SYRINGE 0 ML IV SCH ×3 (09:08→23:24)
[2022-12-01] MEDS: oxyCODONE HCL IR 5 MG TAB (IMMEDIATE RELEASE) PO PRN ×2 (09:50→16:21)
[2022-12-01] MEDS: LORazepam 0.5 MG TAB PO PRN (10:43)
[2022-12-01] MEDS: POTASSIUM CHLORIDE CRTAB 20 MEQ TABCR PO SCH (12:10)
--- NOTE | 2022-12-01 12:34 | History & Physical Bridge Note ---
Date of Service December 01, 2022 History & Physical Bridge Note I have examined the patient, reviewed the History & Physical and in the interval since the performance of the History & Physical I have noted the following changes of clinical significance: no changes noted Irrigation and debridement lumbar spine
[2022-12-01] MEDS ORDERED: ceFAZolin 330 MG/ML 1 GM VIAL ONE (12:49)
[2022-12-01] MEDS ORDERED: BUPIVACAINE/EPINEPHRINE 0.25% 1:200,000 30 ML VIAL ONE (12:49)
[2022-12-01] MEDS ORDERED: MIDAZOLAM HCL 1 MG/ML 2ML VIAL ONE (12:55)
[2022-12-01] MEDS ORDERED: fentaNYL citrate PF 100 MCG/2 ML VIAL ONE (12:55)
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
[2022-12-01] MEDS ORDERED: ONDANSETRON INJ 2 MG/ML 2 ML VIAL IV PRN (13:00)
[2022-12-01] MEDS ORDERED: ATROPINE SULFATE 0.1 MG/ML 10ML SYR IV PRN (13:00)
[2022-12-01] MEDS ORDERED: ePHEDrine sulfate 50 MG/ML AMP IV PRN (13:00)
[2022-12-01] MEDS ORDERED: VANCOMYCIN HCL 1000MG/20ML VIAL ONE (13:04)
[2022-12-01] MEDS ORDERED: GENTAMICIN SULFATE 40 MG/ML 2 ML VIAL ONE (13:05)
[2022-12-01] MEDS ORDERED: LIDOCAINE 2% 2 ML VIAL/AMP(20MG/ML) INFIL ONE (14:19)
[2022-12-01] MEDS ORDERED: ONDANSETRON INJ 2 MG/ML 2 ML VIAL ONE (14:19)
[2022-12-01] MEDS ORDERED: PROPOFOL IV EMULSION 10 MG/ML 20 ML VIAL IV ONE (14:19)
[2022-12-01] MEDS ORDERED: LARYING-O-JET KIT (LTA) ONE (14:19)
[2022-12-01] MEDS ORDERED: ROCURONIUM BROMIDE 10 MG/ML 5 ML VIAL IV ONE (14:19)
[2022-12-01] MEDS ORDERED: PHENYLEPHRINE HCL 10 MG/ML VIAL ONE (14:19)
[2022-12-01] MEDS ORDERED: SUGAMMADEX SODIUM 200 MG/2 ML VIAL IV ONE (14:32)
--- NOTE | 2022-12-01 14:38 | Operative Report ---
Post Operative Report Pre & Post Diagnosis Operation Date: 12/01/22 07:00 Pre-Op Diagnosis: Postoperative lumbar seroma Post-Op Diagnosis: Same I identified the patient and participated in the time-out.: Yes Procedure Operation Date: 12/01/22 07:00 Actual Procedures 1 Incision and Drainage Lumbar Spine Surgeon Darien Acosta DO Dry Heat Room Attendant Guillermo Leonard Estimated Blood Loss 10 Findings Consistent with Post-Op Diagnosis Specimens none Indications This is a 52-year-old female well-known to me the presents with postoperative pain. She had been improving throughout hospital stay with appropriate antibiotics however continued to demonstrate evidence of swelling in lumbar spine and modest erythema. Subsequently we chose to perform an I&D. Description of Procedure Patient was met with identified informed consent obtained. Patient was then taken to the operative suite underwent a patient placed in a prone position the Vishal table atop the Jose frame. All bony promises well-padded eyes inspected to ensure no external pressure spinal. This point the lumbar spine was prepped draped no sterile fashion. Utilizing the previous incision site sharp dissection formed down to and exposing the fascial layer. The fascia was then released and a large collection of fluid consistent with seroma was identified and removed. Several liters of normal saline were then copiously irrigated throughout the incision. I placed a few cc of Stimulan beads impregnated with vancomycin gentamicin throughout the wound. 15 round MARY drain was then inserted incision closed with subcutaneous Vicryl for Monocryl and tom for final skin closure. Steri-Strips dressings placed. Patient awakened and taken to PACU in stable condition. Please note Guillermo Leonard was present at the entire procedure and all the patient positioning complex portion of the surgery and final skin closure. I attest to the content of the Intraoperative Record and any orders documented therein. Any exceptions are noted below.
[2022-12-01] MEDS: fentaNYL citrate PF 100 MCG/2 ML VIAL IV PRN ×4 (15:03→15:18)
--- NOTE | 2022-12-01 16:00 | Anesthesiology Progress Note ---
Date of Service December 01, 2022 Anesthesia Post Procedure Vital Signs Vital Signs: Temp Pulse Pulse Pulse Resp BP BP 12/01/22 15:55 36.6 C 87 18 119/88 12/01/22 15:30 36.6 C 93 H 12 123/83 12/01/22 15:20 88 12 115/73 12/01/22 15:10 90 18 133/95 12/01/22 15:00 36.7 C 87 16 101/76 12/01/22 13:45 89 16 112/81 12/01/22 13:35 92 H 18 113/71 12/01/22 13:25 90 18 110/76 110/76 12/01/22 12:25 90 18 110/76 12/01/22 13:15 91 H 18 111/82 12/01/22 12:39 36.6 C 85 18 115/83 12/01/22 09:00 106/73 12/01/22 07:50 37.0 C 94 H 17 96/57 L 11/30/22 20:04 36.9 C 80 18 99/67 L Pulse Ox O2 Del Method O2 Flow Rate 12/01/22 15:55 97 Room Air 12/01/22 15:30 98 Nasal Cannula 2 12/01/22 15:20 95 Room Air 12/01/22 15:10 100 Oxymask 4 12/01/22 15:00 96 Oxymask 6 12/01/22 13:45 97 Nasal Cannula 2 12/01/22 13:35 96 Nasal Cannula 2 12/01/22 13:25 95 Nasal Cannula 2 12/01/22 12:25 95 Nasal Cannula 2 12/01/22 13:15 97 Nasal Cannula 2 12/01/22 12:39 96 Room Air 12/01/22 09:00 12/01/22 07:50 93 Room Air 11/30/22 20:04 96 Room Air Pain Intensity Back: Pain Intensity: 5 Transfer of Care Handoff Completed per policy Notes Mental Status: alert / awake / arousable and participated in evaluation Patient Amnestic to Procedure: Yes Nausea / Vomiting: adequately controlled Pain: adequately controlled Airway Patency, RR, SpO2: stable & adequate BP & HR: stable & adequate Hydration State: stable & adequate Anesthetic Complications: no major complications apparent and Pt Satisfied with anesthetic care
--- NOTE | 2022-12-01 17:09 | Hospitalist Progress Note ---
Date of Service December 01, 2022 Assessment & Plan (1) History of back surgery: Plan: Complicated UTI Urine culture growing E coli Infectious disease consulted, who is recommending IV Vanco, cefepime for possible SSI infection as below Blood culture - no growth in 24hr Worsening postop back pain with radiculopathy S/P lumbar decompression fusion surgery revision by Dr. Acosta on 11/17/2022 --Lumbar CT:Status post posterior decompression and fusion of L4, L5 and S1 with transpedicular screws and connecting rods in place. There are no fluid collections about the posterior elements extending from L3-L5 with tiny bubbles of air, concerning for possible infection. Back superficial culture 11/17, coag negative staph -- Appreciate orthopedic spine, pain management input Incision warm/erythematous - currently on broad spectrum antibiotic with vanco, cefepime and flagyl Planning for OR this afternoon for irrigation debridement lumbar spine by Dr. Acosta Continue PT OT Anxiety/Mood disorder Continue buspirone, Lamictal d/c prn ativan as pt stated she had a withdrawal seizure from it in past pt requesting psych consult for depression, she wants to go home Hypotension BP usually runs low as per patient Continue IV fluids as needed Monitor BP - improving Hypothyroidism Continue levothyroxine Chronic pain/fibromyalgia Continue current medications Postop blood loss anemia Hb Stable Monitor CBC I spent a total of 35 minutes coordinating, documenting, and providing care for this patient excluding time spent in the performance of separately billed services. Admission and Anticipated Discharge Date Admission Date: November 25, 2022 Supervising Physician Co-Signing Physician Notes Attending addendum: The patient was seen and examined in medical floor in presence of the family member She has been feeling much better following the procedure at the back Denies any significant back pain and does not have any radiculopathic pain as well Wants to go home tomorrow On examination Lying in bed comfortably Remains hemodynamically stable Chest-clear to auscultate bilaterally Heart-S1-S2, regular Abdomen-benign Extremities-negative for any edema Her labs, medications and imaging studies reviewed Has complicated UTI and is status post IND for recent back infection s/p surgery Review with assessment and plan as outlined above by FRANKI Rg Dr Subjective Seen and examined in 388-1. Feeling okay today but anxious about when procedure will be today. No new events overnight. Continues to urinary without issue now that catheter is out. Having back discomfort near incision site that is unchanged. Denies fever, chills, sweats, lightheadedness, dizziness, chest pain, shortness of breath, nausea, vomiting, abdominal pain. Review of Systems Review of Systems: At least ten systems reviewed and negative except as noted in the HPI. Physical Exam Physical Exam: Gen: WD/WN, NAD, lying on side, A&Ox3 HEENT: Normocephalic, atraumatic, conjunctivae moist, sclerae anicteric, mucous membranes moist Lung: Clear to Auscultation bilaterally, no wheezes/rales/rhonchi Heart: Regular rate, regular rhythm, no murmurs, rubs, or gallops Abdomen: Soft, NT, ND +BS x 4 Extremities: + Lumbar surgical site with lumbar incision firm superiorly, red/warm, some serosanguineous drainage Skin: Warm, no rash Results & Data Results & Data Vital Signs (Past 12 Hours) Vital Signs Temp Pulse Pulse Pulse Resp BP BP 12/01/22 16:53 36.7 C 94 H 16 105/72 12/01/22 16:25 36.7 C 94 H 16 95/63 L 12/01/22 15:55 36.6 C 87 18 119/88 12/01/22 15:30 36.6 C 93 H 12 123/83 12/01/22 15:20 88 12 115/73 12/01/22 15:10 90 18 133/95 12/01/22 15:00 36.7 C 87 16 101/76 12/01/22 13:45 89 16 112/81 12/01/22 13:35 92 H 18 113/71 12/01/22 13:25 90 18 110/76 110/76 12/01/22 12:25 90 18 110/76 12/01/22 13:15 91 H 18 111/82 12/01/22 12:39 36.6 C 85 18 115/83 12/01/22 09:00 106/73 12/01/22 07:50 37.0 C 94 H 17 96/57 L Pulse Ox O2 Del Method O2 Flow Rate 12/01/22 16:53 96 Room Air 12/01/22 16:25 92 Room Air 12/01/22 15:55 97 Room Air 12/01/22 15:30 98 Nasal Cannula 2 12/01/22 15:20 95 Room Air 12/01/22 15:10 100 Oxymask 4 12/01/22 15:00 96 Oxymask 6 12/01/22 13:45 97 Nasal Cannula 2 12/01/22 13:35 96 Nasal Cannula 2 12/01/22 13:25 95 Nasal Cannula 2 12/01/22 12:25 95 Nasal Cannula 2 12/01/22 13:15 97 Nasal Cannula 2 12/01/22 12:39 96 Room Air 12/01/22 09:00 12/01/22 07:50 93 Room Air Laboratory Results Short CBC 12/01/22 Range/Units 06:18 WBC 8.74 (4.8-10.8) K/ul Hgb 9.8 L (12.0-16.0) g/dl Hct 29.7 L (37.0-47.0) % Plt Count 611 H (130-400) K/uL BMP 12/01/22 06:18 Sodium 138 Potassium 3.6 Chloride 104 Carbon Dioxide 26 BUN 9 Creatinine 0.64 Glucose 96 Calcium 9.0 Diagnostic Findings Lumbar Spine CT 11/25/22 20:53 CR Exam(s): CT L SPINE IV Amt: OPTIRAY 320 94ML EXAM: CT Lumbar Spine With Intravenous Contrast CLINICAL HISTORY: Reason for exam: postop pain. TECHNIQUE: Axial computed tomography images of the lumbar spine with intravenous contrast. Automated exposure control was utilized for the study. A dose lowering technique was utilized adhering to the principles of ALARA. CONTRAST: Patient received OPTIRAY 320 94ML of IV contrast COMPARISON: Comparison made to prior CT scan lumbar spine from August 16, 2022. FINDINGS: Vertebrae: Patient is status post posterior decompression at L4 and L5 with posterior fusion of L4, L5 and S1. Metallic interbody fusion devices in place at L4-5 and L5-S1. No evidence of surgical hardware complication. There is a remote fracture deformity of the T12, L1 and L2 segments. No acute fracture. 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 There is advanced arthropathy of the left SI joint. Discs/spinal canal/neural foramina: No acute findings. No spinal canal stenosis. Soft tissues: There are fluid collections about the posterior elements at L3, L4 and L5 with tiny bubbles of air, which may represent infection. There is a small fluid collection in the subcutaneous fat overlying the operative site. IMPRESSION: Status post posterior decompression and fusion of L4, L5 and S1 with transpedicular screws and connecting rods in place. There are no fluid collections about the posterior elements extending from L3-L5 with tiny bubbles of air, concerning for possible infection. Communications: Verify Receipt with Nurse Electronically signed by: Lila Desir MD 11/25/22 23:47 PM
[2022-12-01] MEDS ORDERED: SODIUM CHLORIDE 0.9% 500 ML IV SCH (19:30)
[2022-12-01] MEDS: SODIUM CHLORIDE 0.9% 1000ML 1,000 ML IV SCH (20:24)
[2022-12-01] MEDS: PRAZOSIN HCL 1 MG CAP PO SCH (21:31)
[2022-12-01] MEDS: rOPINIRole HCL 0.25 MG TABLET PO SCH (21:32)
[2022-12-01 23:00] LABS: Hematocrit (blood only) 26.8 % (37.0-47.0); Hemoglobin 8.7 g/dl (12.0-16.0)
[2022-12-02] MEDS: metroNIDAZOLE 500 MG/100 ML BAG IV SCH ×4 (00:48→23:15)
[2022-12-02] MEDS: oxyCODONE HCL IR 5 MG TAB (IMMEDIATE RELEASE) PO PRN ×2 (03:31→18:00)
[2022-12-02] MEDS: LEVOTHYROXINE SODIUM 50 MCG TABLET PO SCH (06:08)
[2022-12-02 07:34] LABS: Basophils # (auto) 0.07 K/uL (0-0.2); Basophils % (auto) 0.6 %; Eosinophils # (auto) 0.12 K/uL (0-0.50); Hemoglobin 9.6 g/dl (12.0-16.0); Immature Granulocytes # (auto) 0.08 K/uL (0.01-0.20); Immature Granulocytes % (auto) 0.7 %; Lymphocytes # (auto) 1.67 K/uL (1.2-3.4); Lymphocytes % (auto) 14.4 %; Mean Corpuscular Hemoglobin 25.5 pg (25.0-34.0); Mean Corpuscular Hgb Conc 33.1 g/dL (32.0-36.0); Mean Corpuscular Volume 77.1 fL (80.0-100.0); Mean Platelet Volume 9.9 fL (9.4-12.4); Monocytes % (auto) 7.7 %; Neutrophils # (auto) 8.78 K/uL (1.40-6.50); Neutrophils % (auto) 75.6 %; Platelet Count 634 K/uL (130-400); RDW Coefficient of Variation 16.9 % (11.5-14.5); RDW Standard Deviation 47.3 fL (36.4-46.3); Red Blood Count 3.76 M/uL (4.20-5.40); White Blood Count 11.62 K/ul (4.8-10.8)
--- NOTE | 2022-12-02 07:44 | Orthopedic Progress Note ---
Date of Service December 02, 2022 Assessment & Plan (1) Neurogenic claudication due to lumbar spinal stenosis: Plan: Patient is doing well postop day #1 status post I&D of her lumbar wound. We will continue observation at this point. Continue with GI DVT prophylaxis and pain control. She will ambulate today with physical therapy and we will see how she does with pain control. She may need rehab placement. We will continue to follow. Admission and Anticipated Discharge Date Admission Date: November 25, 2022 Subjective Patient is seen bedside in room 388. She is resting comfortably. She is postop day 1 status post I&D of her lumbar wound. She is doing well this morning the pain is well controlled. She is not having any pain going down the legs. She has not been up and walking however. She has had no more issues with urinary incontinence today. She denies any other numbness, tingling, or paresthesias Physical Exam Physical Exam: On exam she is resting comfortably. Her dressing is clean dry and intact. MARY drain is in place and holding suction. She has full strength in both lower extremities. Sensations intact to light touch. Calves are supple nontender abdomen soft and nontender. Results & Data Vital Signs (Past 12 Hours) Vital Signs Temp Pulse Resp BP Pulse Ox O2 Del Method 12/02/22 07:17 Room Air 12/02/22 06:59 36.9 C 90 17 113/76 93 Room Air 12/02/22 03:06 37.0 C 86 16 95/67 L 95 Room Air 12/01/22 22:51 37 C 90 16 113/79 94 Room Air 12/01/22 21:33 91 H 82/52 L 94 Room Air 12/01/22 20:24 85 92/60 L 93 Room Air
[2022-12-02] MEDS: SODIUM CHLORIDE 0.9% 1000ML 1,000 ML IV SCH ×2 (08:17→21:32)
[2022-12-02] MEDS: VANCOMYCIN HCL 750 MG in SODIUM CHLORIDE 0.9% 250 ML IV SCH ×2 (08:17→15:31)
[2022-12-02] MEDS: CEFEPIME 2,000 MG in SYRINGE 0 ML IV SCH ×3 (08:20→23:15)
[2022-12-02] MEDS: levETIRAcetam 500 MG TAB PO SCH ×2 (08:24→21:32)
[2022-12-02] MEDS: FOLIC ACID 400 MCG TAB PO SCH (08:24)
[2022-12-02] MEDS: CYANOCOBALAMIN (B-12) 500 MCG TABLET PO SCH (08:24)
[2022-12-02] MEDS: PANTOprazole 40 MG TAB PO SCH (08:24)
[2022-12-02] MEDS: ADVANCED PROBIOTIC 1250 MG CAPSULE PO SCH (08:25)
[2022-12-02] MEDS: busPIRone 5 MG TAB PO SCH ×3 (08:25→21:32)
[2022-12-02] MEDS: DULoxetine HCL 20 MG CAP PO SCH (08:25)
[2022-12-02] MEDS: LURASIDONE HCL 40 MG TAB PO SCH (08:25)
[2022-12-02] MEDS: lamoTRIgine 25 MG TAB PO SCH (08:25)
[2022-12-02] MEDS: THIAMINE HCL 50 MG TABLET PO SCH (08:25)
[2022-12-02] MEDS: METOPROLOL SUCC 25MG EXT REL TAB PO SCH (08:25)
[2022-12-02] MEDS: PREGABALIN 150 MG CAP PO SCH ×3 (08:30→21:31)
[2022-12-02] MEDS: POTASSIUM CHLORIDE CRTAB 20 MEQ TABCR PO SCH (08:30)
[2022-12-02] MEDS: ACETAMINOPHEN 500 MG TAB PO PRN (08:30)
[2022-12-02 09:55] LABS: BUN Creatinine Ratio 16.9 (10-20); Calcium 8.4 mg/dl (8.6-10.3); Est GFR (African American) 123.9 ml/min; Est GFR (Non-African American) 106.9 ml/min; Potassium 3.9 mmol/L (3.5-5.1)
[2022-12-02] MEDS: LORazepam 0.5 MG TAB PO PRN (10:44)
--- NOTE | 2022-12-02 15:50 | Hospitalist Progress Note ---
Date of Service December 02, 2022 Assessment & Plan (1) History of back surgery: Plan: Complicated UTI Urine culture growing E coli Infectious disease consulted, who is recommending IV Vanco, cefepime for possible SSI infection as below Blood culture - no growth in 24hr We will continue current antibiotic Worsening postop back pain with radiculopathy S/P lumbar decompression fusion surgery revision by Dr. Acosta on 11/17/2022 --Lumbar CT:Status post posterior decompression and fusion of L4, L5 and S1 with transpedicular screws and connecting rods in place. There are no fluid collections about the posterior elements extending from L3-L5 with tiny bubbles of air, concerning for possible infection. Back superficial culture 11/17, coag negative staph -- Appreciate orthopedic spine, pain management input Incision warm/erythematous - currently on broad spectrum antibiotic with vanco, cefepime and flagyl Planning for OR this afternoon for irrigation debridement lumbar spine by Dr. Acosta No sample was sent for Gram stain and culture from the seroma Patient remains afebrile with normal white count We will ask Dr. Acosta about possible infected drain is from the seroma to decide on antibiotic We will get repeat PT and OT evaluation prior to discharge Anxiety/Mood disorder Continue buspirone, Lamictal d/c prn ativan as pt stated she had a withdrawal seizure from it in past pt requesting psych consult for depression, she wants to go home Hypotension BP usually runs low as per patient Continue IV fluids as needed Monitor BP - improving Hypothyroidism Continue levothyroxine Chronic pain/fibromyalgia Continue current medications Postop blood loss anemia Hb Stable Monitor CBC Admission and Anticipated Discharge Date Admission Date: November 25, 2022 Subjective Seen and examined in 388-1. Feeling okay today but anxious about when procedure will be today. No new events overnight. Continues to urinary without issue now that catheter is out. Having back discomfort near incision site that is unchanged. Denies fever, chills, sweats, lightheadedness, dizziness, chest pain, shortness of breath, nausea, vomiting, abdominal pain. 12/02/2022 The patient was seen and examined in medical floor She remains stable without much pain at the back She has had physical therapy 128 and will need to another physical therapy fo llowing the procedure at the back But she wants to go home and does not want to go to rehab Review of Systems Review of Systems: All systems reviewed and are unremarkable except as noted below Physical Exam Physical Exam: On examination Lying in bed comfortably Remains hemodynamically stable Chest-clear to auscultate bilaterally Heart-S1-S2, regular Abdomen-benign Extremities-negative for any edema Results & Data Results & Data Vital Signs (Past 12 Hours) Vital Signs Temp Pulse Resp BP Pulse Ox O2 Del Method 12/02/22 14:19 36.8 C 94 H 16 103/72 95 Room Air 12/02/22 11:05 36.9 C 94 H 17 117/79 93 Room Air 12/02/22 07:17 Room Air 12/02/22 06:59 36.9 C 90 17 113/76 93 Room Air Laboratory Results Short CBC 12/01/22 12/02/22 Range/Units 22:33 06:44 WBC 11.62 H (4.8-10.8) K/ul Hgb 8.7 L 9.6 L (12.0-16.0) g/dl Hct 26.8 L 29.0 L (37.0-47.0) % Plt Count 634 H (130-400) K/uL BMP 12/02/22 06:44 Sodium 137 Potassium 3.9 Chloride 106 Carbon Dioxide 25 BUN 10 Creatinine 0.59 L Glucose 85 Calcium 8.4 L Medications Administered Current Inpatient Medications Acetaminophen (Acetaminophen 500 Mg Tab) 1,000 mg PO Q8H PRN PRN Reason: MILD Pain Scale 1,2,3 & Pre PT Stop: 12/25/22 20:52 Last Admin: 12/02/22 08:30 Dose: 1,000 mg Buspirone HCl (Buspirone 5 Mg Tab) 5 mg PO TID [facility] Stop: 12/25/22 20:59 Last Admin: 12/02/22 13:31 Dose: 5 mg Cyanocobalamin (Cyanocobalamin (B-12) 500 Mcg Tablet) 1,000 mcg PO QAM JUAN C Stop: 12/26/22 08:59 Last Admin: 12/02/22 08:24 Dose: 1,000 mcg Duloxetine HCl (Duloxetine Hcl 20 Mg Cap) 40 mg PO QAM JUAN C Stop: 12/26/22 08:59 Last Admin: 12/02/22 08:25 Dose: 40 mg Folic Acid (Folic Acid 400 Mcg Tab) 400 mcg PO QAM JUAN C Stop: 12/26/22 08:59 Last Admin: 12/02/22 08:24 Dose: 400 mcg Hydroxyzine HCl (Hydroxyzine Hcl 25 Mg Tab) 25 mg PO BID PRN PRN Reason: anxiety Stop: 12/28/22 13:37 Last Admin: 11/29/22 12:39 Dose: 25 mg Promethazine HCl 12.5 mg/ (Sodium Chloride) 50.5 mls @ 202 mls/hr IV Q6H PRN PRN Reason: Nausea &/or Vomiting Stop: 12/25/22 20:52 Cefepime HCl 2,000 mg/ Syringe 20 mls @ 5 mls/min IV Q8H [facility]; Protocol Stop: 01/09/23 15:59 Last Admin: 12/02/22 15:30 Dose: 5 mls/min Metronidazole (Flagyl) 500 mg in 100 mls @ 100 mls/hr IV Q8H [facility]; Protocol Stop: 01/09/23 15:59 Last Admin: 12/02/22 15:32 Dose: 100 mls/hr Vancomycin HCl 750 mg/ Sodium (Chloride) 265 mls @ 200 mls/hr IV Q8H [facility] Stop: 01/10/23 00:00 Last Admin: 12/02/22 15:31 Dose: 200 mls/hr Sodium Chloride (Nss 1000ml) 1,000 mls @ 80 mls/hr IV .[id number] [facility] Stop: 12/31/22 19:29 Last Admin: 12/02/22 08:17 Dose: 80 mls/hr Lactobacillus Acidophilus (Advanced Probiotic 1250 Mg Capsule) 2 cap PO DAILY [facility] Stop: 12/26/22 08:59 Last Admin: 12/02/22 08:25 Dose: 2 cap Lamotrigine (Lamotrigine 25 Mg Tab) 25 mg PO QAM [facility] Stop: 12/26/22 08:59 Last Admin: 12/02/22 08:25 Dose: 25 mg Levetiracetam (Levetiracetam 500 Mg Tab) 500 mg PO BID [facility] Stop: 12/25/22 20:59 Last Admin: 12/02/22 08:24 Dose: 500 mg Levothyroxine Sodium (Levothyroxine Sodium 50 Mcg Tablet) 50 mcg PO [id number] [facility] Stop: 12/29/22 06:29 Last Admin: 12/02/22 06:08 Dose: 50 mcg Lorazepam (Lorazepam 0.5 Mg Tab) 0.5 mg PO BID PRN PRN Reason: Anxiety Stop: 12/29/22 20:18 Last Admin: 12/02/22 10:44 Dose: 0.5 mg Lurasidone HCl (Lurasidone Hcl 40 Mg Tab) 40 mg PO QAM [facility] Stop: 12/26/22 08:59 Last Admin: 12/02/22 08:25 Dose: 40 mg Metoclopramide HCl (Metoclopramide Hcl Inj 5 Mg/Ml 2 Ml Vial) 10 mg IV Q6H PRN PRN Reason: Nausea &/or Vomiting Stop: 12/25/22 20:52 Metoprolol Succinate (Metoprolol Succ 25mg Ext Rel Tab) 25 mg PO QAM [facility] Stop: 12/26/22 08:59 Last Admin: 12/02/22 08:25 Dose: 25 mg Mirtazapine (Mirtazapine Tab 15 Mg Tab) 15 mg PO HS PRN PRN Reason: Sleep Stop: 12/25/22 20:52 Last Admin: 12/01/22 02:33 Dose: 15 mg Miscellaneous Information (Vancomycin Consult Active) 1 each N/A UD PRN PRN Reason: Consult Stop: 12/28/22 15:39 Naloxone HCl (Naloxone Hcl 0.4 Mg/1 Ml Vial/Carp) 0.1 mg IV Q5M PRN PRN Reason: Oversedation/respiratory dep Stop: 12/25/22 20:52 Naloxone HCl (Naloxone Hcl 0.4 Mg/1 Ml Vial/Carp) 0.1 mg IV Q5M PRN; Protocol PRN Reason: Oversedation/Resp Depression Stop: 12/10/22 10:22 Ondansetron HCl (Ondansetron Inj 2 Mg/Ml 2 Ml Vial) 4 mg IV Q6H PRN PRN Reason: Nausea &/or Vomiting Stop: 12/25/22 20:52 Ondansetron HCl (Ondansetron 4 Mg Od Tab) 4 mg PO Q6H PRN PRN Reason: Nausea Stop: 12/25/22 20:52 Oxycodone HCl (Oxycodone Hcl Ir 5 Mg Tab (Immediate Release)) 5 mg PO Q4 PRN PRN Reason: Pain Stop: 12/10/22 10:20 Last Admin: 12/02/22 03:31 Dose: 5 mg Pantoprazole Sodium (Pantoprazole 40 Mg Tab) 40 mg PO QAM JUAN C Stop: 12/26/22 08:59 Last Admin: 12/02/22 08:24 Dose: 40 mg Potassium Chloride (Potassium Chloride Crtab 20 Meq Tabcr) 20 meq PO QDL JUAN C Stop: 12/26/22 11:29 Last Admin: 12/02/22 08:30 Dose: 20 meq Prazosin HCl (Prazosin Hcl 1 Mg Cap) 2 mg PO HS JUAN C Stop: 12/25/22 20:59 Last Admin: 12/01/22 21:31 Dose: Not Given Pregabalin (Pregabalin 150 Mg Cap) 150 mg PO TID JUAN C Stop: 12/25/22 21:59 Last Admin: 12/02/22 13:31 Dose: 150 mg Ropinirole HCl (Ropinirole Hcl 0.25 Mg Tablet) 0.5 mg PO HS JUAN C Stop: 12/25/22 20:59 Last Admin: 12/01/22 21:32 Dose: 0.5 mg Thiamine HCl (Thiamine Hcl 50 Mg Tablet) 50 mg PO QAM JUAN C Stop: 12/26/22 08:59 Last Admin: 12/02/22 08:25 Dose: 50 mg
[2022-12-02] MEDS: rOPINIRole HCL 0.25 MG TABLET PO SCH (21:32)
[2022-12-02] MEDS: PRAZOSIN HCL 1 MG CAP PO SCH (21:34)
[2022-12-03] MEDS: VANCOMYCIN HCL 750 MG in SODIUM CHLORIDE 0.9% 250 ML IV SCH ×3 (00:22→15:12)
[2022-12-03] MEDS: MIRTAZAPINE TAB 15 MG TAB PO PRN ×2 (00:50→20:37)
[2022-12-03] MEDS: LEVOTHYROXINE SODIUM 50 MCG TABLET PO SCH (06:13)
[2022-12-03] MEDS: CEFEPIME 2,000 MG in SYRINGE 0 ML IV SCH ×2 (07:13→15:09)
--- NOTE | 2022-12-03 07:28 | Orthopedic Progress Note ---
Date of Service December 03, 2022 Assessment & Plan (1) Neurogenic claudication due to lumbar spinal stenosis: Plan: At this point we will have her evaluated by physical therapy. We will continue GI DVT prophylaxis and pain control measures. We will maintain her dressing and MARY drain at this point. She likely will not be able to go today but will evaluate her tomorrow for possible discharge. Admission and Anticipated Discharge Date Admission Date: November 25, 2022 Subjective Patient was seen bedside in room 388. She states that she is doing well today. She has some back discomfort but is controlled with pain medication. She is able to ambulate to and from the bathroom. She has not yet had a physical therapy evaluation. We are waiting for her morning labs. She denies any other numbness, tingling, or paresthesias Physical Exam Physical Exam: On exam she is alert and oriented. Her strength and sensation are intact in both lower extremities. Her abdomen soft and nontender. Her dressing is clean dry and intact. Her MARY drain is in place is put out 10 cc in the last recorded shift. Her calves are supple and nontender. Visual zavala are grossly intact. Cardiovascular exam reveals no gross abnormalities Results & Data Vital Signs (Past 12 Hours) Vital Signs Temp Pulse Resp BP BP Pulse Ox O2 Del Method 12/03/22 07:02 36.9 C 100 H 17 114/81 96 Room Air 12/02/22 21:39 36.8 C 83 16 92/62 L 94 Room Air
[2022-12-03] MEDS ORDERED: VANCOMYCIN LEVEL ONE (07:30)
[2022-12-03] MEDS: metroNIDAZOLE 500 MG/100 ML BAG IV SCH ×2 (07:34→15:12)
[2022-12-03 07:50] LABS: Basophils # (auto) 0.08 K/uL (0-0.2); Basophils % (auto) 0.8 %; Eosinophils # (auto) 0.22 K/uL (0-0.50); Eosinophils % (auto) 2.2 %; Hematocrit (blood only) 31.1 % (37.0-47.0); Hemoglobin 9.9 g/dl (12.0-16.0); Immature Granulocytes # (auto) 0.07 K/uL (0.01-0.20); Immature Granulocytes % (auto) 0.7 %; Lymphocytes # (auto) 1.92 K/uL (1.2-3.4); Lymphocytes % (auto) 19.2 %; Mean Corpuscular Hemoglobin 24.9 pg (25.0-34.0); Mean Corpuscular Hgb Conc 31.8 g/dL (32.0-36.0); Mean Corpuscular Volume 78.3 fL (80.0-100.0); Mean Platelet Volume 9.7 fL (9.4-12.4); Monocytes # (auto) 0.74 K/uL (0.11-0.59); Monocytes % (auto) 7.4 %; Neutrophils # (auto) 6.99 K/uL (1.40-6.50); Neutrophils % (auto) 69.7 %; Platelet Count 746 K/uL (130-400); RDW Coefficient of Variation 16.6 % (11.5-14.5); RDW Standard Deviation 46.9 fL (36.4-46.3); Red Blood Count 3.97 M/uL (4.20-5.40); White Blood Count 10.02 K/ul (4.8-10.8)
[2022-12-03 08:01] LABS: BUN Creatinine Ratio 13.2 (10-20); Calcium 8.7 mg/dl (8.6-10.3); Creatinine Clr Calc Pharmacy 84.6 ml/min; Est GFR (African American) 128.3 ml/min; Est GFR (Non-African American) 110.7 ml/min; Potassium 4.1 mmol/L (3.5-5.1)
[2022-12-03] MEDS: ACETAMINOPHEN 500 MG TAB PO PRN (08:41)
[2022-12-03] MEDS: LORazepam 0.5 MG TAB PO PRN (08:41)
[2022-12-03] MEDS: busPIRone 5 MG TAB PO SCH ×3 (08:42→20:37)
[2022-12-03] MEDS: THIAMINE HCL 50 MG TABLET PO SCH (08:42)
[2022-12-03] MEDS: lamoTRIgine 25 MG TAB PO SCH (08:42)
[2022-12-03] MEDS: CYANOCOBALAMIN (B-12) 500 MCG TABLET PO SCH (08:42)
[2022-12-03] MEDS: levETIRAcetam 500 MG TAB PO SCH ×2 (08:42→20:37)
[2022-12-03] MEDS: LURASIDONE HCL 40 MG TAB PO SCH (08:43)
[2022-12-03] MEDS: FOLIC ACID 400 MCG TAB PO SCH (08:43)
[2022-12-03] MEDS: METOPROLOL SUCC 25MG EXT REL TAB PO SCH (08:43)
[2022-12-03] MEDS: PREGABALIN 150 MG CAP PO SCH ×2 (08:43→13:08)
[2022-12-03] MEDS: DULoxetine HCL 20 MG CAP PO SCH (08:43)
[2022-12-03] MEDS: PANTOprazole 40 MG TAB PO SCH (08:43)
[2022-12-03] MEDS: ADVANCED PROBIOTIC 1250 MG CAPSULE PO SCH (08:43)
[2022-12-03] MEDS: POTASSIUM CHLORIDE CRTAB 20 MEQ TABCR PO SCH (08:47)
[2022-12-03] MEDS: SODIUM CHLORIDE 0.9% 1000ML 1,000 ML IV SCH ×2 (08:47→20:37)
--- NOTE | 2022-12-03 09:19 | Pharmacy Report ---
Pharmacy PK ABX Note - Date of Service December 03, 2022 - Assessment and Plan Assessment 52 yo F receiving Vancomycin, Cefepime and Metronidazole for surgical site infection. * Day #6 of antimicrobial therapy. ID is consulted. * Urine culture grew E. coli that was resistant to fluoroquinolones. This will be treated with the Cefepime. * Lumbar CT was concerning for infection. Underwent I&D of lumbar spine on 12/01/22. Back culture from 11/17/22 grew CoNS. * Afebrile and without leukocytosis. Renal fxn stable. Await further ID input. Plan Vancomycin * Current regimen: 750 mg IV every 8 hours * Trough level obtained 12/03/22 resulted as 16.1 mcg/mL. This is predicted to achieve target AUC/JEFFY of 400-600 mg/L.hr * Predicted AUC at steady state: 448 mg/L.hr * Continue 750 mg IV every 8 hours * 2 therapeutic levels on this regimen. No further level ordered at this time. Pharmacy will continue to follow and will adjust dose/frequency as necessary. Thank you. Pharmacy has transitioned to AUC monitoring for vancomycin. AUC/JEFFY is the preferred PK/PD target and is associated with decreased risk of nephrotoxicity compared to traditional trough targets.
[2022-12-03] MEDS: hydrOXYzine HCl 25 MG TAB PO PRN (09:31)
--- NOTE | 2022-12-03 13:05 | Hospitalist Progress Note ---
Date of Service December 03, 2022 Assessment & Plan (1) History of back surgery: Plan: Complicated UTI Urine culture growing E coli Infectious disease consulted, who is recommending IV Vanco, cefepime for possible SSI infection as below Blood culture - no growth in 24hr We will continue current antibiotic No more symptoms of UTI the patient remains afebrile with an elevation of the white count Worsening postop back pain with radiculopathy S/P lumbar decompression fusion surgery revision by Dr. Acosta on 11/17/2022 --Lumbar CT:Status post posterior decompression and fusion of L4, L5 and S1 with transpedicular screws and connecting rods in place. There are no fluid collections about the posterior elements extending from L3-L5 with tiny bubbles of air, concerning for possible infection. Back superficial culture 11/17, coag negative staph -- Appreciate orthopedic spine, pain management input Incision warm/erythematous - currently on broad spectrum antibiotic with vanco, cefepime and flagyl Planning for OR this afternoon for irrigation debridement lumbar spine by Dr. Acosta No sample was sent for Gram stain and culture from the seroma-we will continue antibiotic as per results of culture sensitivity from prior back sample Patient remains afebrile with normal white count We will ask Dr. Acosta about possible infected drain is from the seroma to decide on antibiotic We will get repeat PT and OT evaluation prior to discharge-recommended home Started on intravenous cefazolin and will DC on oral cefdinir to finish a total of 14 days of antibiotic Anxiety/Mood disorder Continue buspirone, Lamictal d/c prn ativan as pt stated she had a withdrawal seizure from it in past pt requesting psych consult for depression, she wants to go home Hypotension BP usually runs low as per patient Continue IV fluids as needed Monitor BP - improving Hypothyroidism Continue levothyroxine Chronic pain/fibromyalgia Continue current medications Postop blood loss anemia Hb Stable Monitor CBC Admission and Anticipated Discharge Date Admission Date: November 25, 2022 Subjective Seen and examined in 388-1. Feeling okay today but anxious about when procedure will be today. No new events overnight. Continues to urinary without issue now that catheter is out. Having back discomfort near incision site that is unchanged. Denies fever, chills, sweats, lightheadedness, dizziness, chest pain, shortness of breath, nausea, vomiting, abdominal pain. 12/02/2022 The patient was seen and examined in medical floor She remains stable without much pain at the back She has had physical therapy 128 and will need to another physical therapy following the procedure at the back But she wants to go home and does not want to go to rehab 12/03/2022 The patient was seen and examined in medical floor She has been feeling much better and physical therapy recommended that she could be discharged home She does not have any back pain and noted radiation of pain No fever and no chills and no other signs of ongoing infection She wants to go home today Review of Systems Review of Systems: All systems reviewed and are unremarkable except as noted below Physical Exam Physical Exam: On examination Lying in bed comfortably Remains hemodynamically stable Chest-clear to auscultate bilaterally Heart-S1-S2, regular Abdomen-benign Extremities-negative for any edema Results & Data Results & Data Vital Signs (Past 12 Hours) Vital Signs Temp Pulse Resp BP Pulse Ox O2 Del Method 12/03/22 07:11 Room Air 12/03/22 07:02 36.9 C 100 H 17 114/81 96 Room Air Laboratory Results Short CBC 12/03/22 Range/Units 07:22 WBC 10.02 (4.8-10.8) K/ul Hgb 9.9 L (12.0-16.0) g/dl Hct 31.1 L (37.0-47.0) % Plt Count 746 H (130-400) K/uL BMP 12/03/22 07:22 Sodium 139 Potassium 4.1 Chloride 108 H Carbon Dioxide 24 BUN 7 Creatinine 0.53 L Glucose 103 H Calcium 8.7 Medications Administered Current Inpatient Medications Acetaminophen (Acetaminophen 500 Mg Tab) 1,000 mg PO Q8H PRN PRN Reason: MILD Pain Scale 1,2,3 & Pre PT Stop: 12/25/22 20:52 Last Admin: 12/03/22 08:41 Dose: 1,000 mg Buspirone HCl (Buspirone 5 Mg Tab) 5 mg PO TID JUAN C Stop: 12/25/22 20:59 Last Admin: 12/03/22 08:42 Dose: 5 mg Cyanocobalamin (Cyanocobalamin (B-12) 500 Mcg Tablet) 1,000 mcg PO QAM [facility] Stop: 12/26/22 08:59 Last Admin: 12/03/22 08:42 Dose: 1,000 mcg Duloxetine HCl (Duloxetine Hcl 20 Mg Cap) 40 mg PO QAM [facility] Stop: 12/26/22 08:59 Last Admin: 12/03/22 08:43 Dose: 40 mg Folic Acid (Folic Acid 400 Mcg Tab) 400 mcg PO QAM [facility] Stop: 12/26/22 08:59 Last Admin: 12/03/22 08:43 Dose: 400 mcg Hydroxyzine HCl (Hydroxyzine Hcl 25 Mg Tab) 25 mg PO BID PRN PRN Reason: anxiety Stop: 12/28/22 13:37 Last Admin: 12/03/22 09:31 Dose: 25 mg Promethazine HCl 12.5 mg/ (Sodium Chloride) 50.5 mls @ 202 mls/hr IV Q6H PRN PRN Reason: Nausea &/or Vomiting Stop: 12/25/22 20:52 Cefepime HCl 2,000 mg/ Syringe 20 mls @ 5 mls/min IV Q8H [facility]; Protocol Stop: 01/09/23 15:59 Last Admin: 12/03/22 07:13 Dose: 5 mls/min Metronidazole (Flagyl) 500 mg in 100 mls @ 100 mls/hr IV Q8H [facility]; Protocol Stop: 01/09/23 15:59 Last Infusion: 12/03/22 08:34 Dose: Infused Vancomycin HCl 750 mg/ Sodium (Chloride) 265 mls @ 200 mls/hr IV Q8H [facility] Stop: 01/10/23 00:00 Last Infusion: 12/03/22 10:01 Dose: Infused Sodium Chloride (Nss 1000ml) 1,000 mls @ 80 mls/hr IV .[id number] [facility] Stop: 12/31/22 19:29 Last Admin: 12/03/22 08:47 Dose: 80 mls/hr Lactobacillus Acidophilus (Advanced Probiotic 1250 Mg Capsule) 2 cap PO DAILY [facility] Stop: 12/26/22 08:59 Last Admin: 12/03/22 08:43 Dose: 2 cap Lamotrigine (Lamotrigine 25 Mg Tab) 25 mg PO QAM [facility] Stop: 12/26/22 08:59 Last Admin: 12/03/22 08:42 Dose: 25 mg Levetiracetam (Levetiracetam 500 Mg Tab) 500 mg PO BID [facility] Stop: 12/25/22 20:59 Last Admin: 12/03/22 08:42 Dose: 500 mg Levothyroxine Sodium (Levothyroxine Sodium 50 Mcg Tablet) 50 mcg PO [id number] [facility] Stop: 12/29/22 06:29 Last Admin: 12/03/22 06:13 Dose: 50 mcg Lorazepam (Lorazepam 0.5 Mg Tab) 0.5 mg PO BID PRN PRN Reason: Anxiety Stop: 12/29/22 20:18 Last Admin: 12/03/22 08:41 Dose: 0.5 mg Lurasidone HCl (Lurasidone Hcl 40 Mg Tab) [facility] Stop: 12/26/22 08:59 Last Admin: 12/03/22 08:43 Dose: 40 mg Metoclopramide HCl (Metoclopramide Hcl Inj 5 Mg/Ml 2 Ml Vial) 10 mg IV Q6H PRN PRN Reason: Nausea &/or Vomiting Stop: 12/25/22 20:52 Metoprolol Succinate (Metoprolol Succ 25mg Ext Rel Tab) 25 mg PO [facility] Stop: 12/26/22 08:59 Last Admin: 12/03/22 08:43 Dose: 25 mg Mirtazapine (Mirtazapine Tab 15 Mg Tab) 15 mg PO HS PRN PRN Reason: Sleep Stop: 12/25/22 20:52 Last Admin: 12/03/22 00:50 Dose: 15 mg Miscellaneous Information (Vancomycin Consult Active) 1 each N/A UD PRN PRN Reason: Consult Stop: 12/28/22 15:39 Naloxone HCl (Naloxone Hcl 0.4 Mg/1 Ml Vial/Carp) 0.1 mg IV Q5M PRN PRN Reason: Oversedation/respiratory dep Stop: 12/25/22 20:52 Naloxone HCl (Naloxone Hcl 0.4 Mg/1 Ml Vial/Carp) 0.1 mg IV Q5M PRN; Protocol PRN Reason: Oversedation/Resp Depression Stop: 12/10/22 10:22 Ondansetron HCl (Ondansetron Inj 2 Mg/Ml 2 Ml Vial) 4 mg IV Q6H PRN PRN Reason: Nausea &/or Vomiting Stop: 12/25/22 20:52 Ondansetron HCl (Ondansetron 4 Mg Od Tab) 4 mg PO Q6H PRN PRN Reason: Nausea Stop: 12/25/22 20:52 Oxycodone HCl (Oxycodone Hcl Ir 5 Mg Tab (Immediate Release)) 5 mg PO Q4 PRN PRN Reason: Pain Stop: 12/10/22 10:20 Last Admin: 12/02/22 18:00 Dose: 5 mg Pantoprazole Sodium (Pantoprazole 40 Mg Tab) 40 mg PO QAM [facility] Stop: 12/26/22 08:59 Last Admin: 12/03/22 08:43 Dose: 40 mg Potassium Chloride (Potassium Chloride Crtab 20 Meq Tabcr) 20 meq PO QDL JUAN C Stop: 12/26/22 11:29 Last Admin: 12/03/22 08:47 Dose: 20 meq Prazosin HCl (Prazosin Hcl 1 Mg Cap) 2 mg PO HS JUAN C Stop: 12/25/22 20:59 Last Admin: 12/02/22 21:34 Dose: Not Given Pregabalin (Pregabalin 150 Mg Cap) 150 mg PO TID JUAN C Stop: 12/25/22 21:59 Last Admin: 12/03/22 08:43 Dose: 150 mg Ropinirole HCl (Ropinirole Hcl 0.25 Mg Tablet) 0.5 mg PO HS JUAN C Stop: 12/25/22 20:59 Last Admin: 12/02/22 21:32 Dose: 0.5 mg Thiamine HCl (Thiamine Hcl 50 Mg Tablet) 50 mg PO QAM JUAN C Stop: 12/26/22 08:59 Last Admin: 12/03/22 08:42 Dose: 50 mg
[2022-12-03] MEDS ORDERED: LORazepam 0.5 MG TAB PO STA ×2 (13:42→21:21)
[2022-12-03] MEDS: oxyCODONE HCL IR 5 MG TAB (IMMEDIATE RELEASE) PO PRN (18:22)
[2022-12-03] MEDS: PRAZOSIN HCL 1 MG CAP PO SCH (20:37)
[2022-12-03] MEDS: rOPINIRole HCL 0.25 MG TABLET PO SCH (20:37)
[2022-12-03] MEDS: PREGABALIN 75 MG CAP PO SCH (20:37)
[2022-12-04] MEDS: metroNIDAZOLE 500 MG/100 ML BAG IV SCH ×2 (00:38→08:04)
[2022-12-04] MEDS: VANCOMYCIN HCL 750 MG in SODIUM CHLORIDE 0.9% 250 ML IV SCH ×2 (00:38→07:52)
[2022-12-04] MEDS: CEFEPIME 2,000 MG in SYRINGE 0 ML IV SCH ×2 (00:38→07:52)
[2022-12-04] MEDS: LEVOTHYROXINE SODIUM 50 MCG TABLET PO SCH (06:24)
[2022-12-04] MEDS: CYANOCOBALAMIN (B-12) 500 MCG TABLET PO SCH (07:53)
[2022-12-04] MEDS: LORazepam 0.5 MG TAB PO PRN (07:53)
[2022-12-04] MEDS: busPIRone 5 MG TAB PO SCH ×2 (07:53→14:08)
[2022-12-04] MEDS: ADVANCED PROBIOTIC 1250 MG CAPSULE PO SCH (07:54)
[2022-12-04] MEDS: DULoxetine HCL 20 MG CAP PO SCH (07:54)
[2022-12-04] MEDS: PANTOprazole 40 MG TAB PO SCH (07:54)
[2022-12-04] MEDS: LURASIDONE HCL 40 MG TAB PO SCH (07:55)
[2022-12-04] MEDS: levETIRAcetam 500 MG TAB PO SCH (07:55)
[2022-12-04] MEDS: lamoTRIgine 25 MG TAB PO SCH (07:55)
[2022-12-04] MEDS: THIAMINE HCL 50 MG TABLET PO SCH (07:55)
[2022-12-04] MEDS: FOLIC ACID 400 MCG TAB PO SCH (07:55)
[2022-12-04 08:13] LABS: Creatinine Clr Calc Pharmacy 89.7 ml/min; Est GFR (African American) 130.8 ml/min; Est GFR (Non-African American) 112.9 ml/min
[2022-12-04] MEDS: METOPROLOL SUCC 25MG EXT REL TAB PO SCH (09:14)
[2022-12-04] MEDS: PREGABALIN 75 MG CAP PO SCH ×2 (09:14→14:08)
[2022-12-04] MEDS: oxyCODONE HCL IR 5 MG TAB (IMMEDIATE RELEASE) PO PRN (09:14)
[2022-12-04] MEDS: SODIUM CHLORIDE 0.9% 1000ML 1,000 ML IV SCH (09:55)
--- NOTE | 2022-12-04 11:16 | Hospitalist Progress Note ---
Date of Service December 04, 2022 Assessment & Plan (1) History of back surgery: Plan: Complicated UTI Urine culture growing E coli Infectious disease consulted, who is recommending IV Vanco, cefepime for possible SSI infection as below Blood culture - no growth in 24hr We will continue current antibiotic No more symptoms of UTI the patient remains afebrile with an elevation of the white count Will give Augmentin for a total of 7 more days to cover UTI and also back surgery site infection Worsening postop back pain with radiculopathy S/P lumbar decompression fusion surgery revision by Dr. Acosta on 11/17/2022 --Lumbar CT:Status post posterior decompression and fusion of L4, L5 and S1 with transpedicular screws and connecting rods in place. There are no fluid collections about the posterior elements extending from L3-L5 with tiny bubbles of air, concerning for possible infection. Back superficial culture 11/17, coag negative staph -- Appreciate orthopedic spine, pain management input Incision warm/erythematous - currently on broad spectrum antibiotic with vanco, cefepime and flagyl Planning for OR this afternoon for irrigation debridement lumbar spine by Dr. Acosta No sample was sent for Gram stain and culture from the seroma-we will continue antibiotic as per results of culture sensitivity from prior back sample Patient remains afebrile with normal white count We will ask Dr. Acosta about possible infected drain is from the seroma to decide on antibiotic We will get repeat PT and OT evaluation prior to discharge-recommended home Started on intravenous cefazolin and will DC on oral cefdinir to finish a total of 14 days of antibiotic Discussed with the ID on-call Dr. Kendall in [place] [employer] and advised to continue antibiotic for 14 days since total and also Get CRP every week for next 2 months to monitor infection/inflammation at the back Anxiety/Mood disorder Continue buspirone, Lamictal d/c prn ativan as pt stated she had a withdrawal seizure from it in past pt requesting psych consult for depression, she wants to go home Hypotension BP usually runs low as per patient Continue IV fluids as needed Monitor BP - improving Hypothyroidism Continue levothyroxine Chronic pain/fibromyalgia Continue current medications Postop blood loss anemia Hb Stable Monitor CBC She will be discharged this afternoon Admission and Anticipated Discharge Date Admission Date: November 25, 2022 Subjective Seen and examined in 388-1. Feeling okay today but anxious about when procedure will be today. No new events overnight. Continues to urinary without issue now that catheter is out. Having back discomfort near incision site that is unchanged. Denies fever, chills, sweats, lightheadedness, dizziness, chest pain, shortness of breath, nausea, vomiting, abdominal pain. 12/02/2022 The patient was seen and examined in medical floor She remains stable without much pain at the back She has had physical therapy 128 and will need to another physical therapy following the procedure at the back But she wants to go home and does not want to go to rehab 12/03/2022 The patient was seen and examined in medical floor She has been feeling much better and physical therapy recommended that she could be discharged home She does not have any back pain and noted radiation of pain No fever and no chills and no other signs of ongoing infection She wants to go home today 12/04/2022 The patient was seen and examined in medical floor She has been feeling much better and has been waiting to be discharged No back pain and no radiation no urinary symptoms Denies any fever and or chills, no nausea no vomiting Has had physical therapy and recommended home with care Review of Systems Review of Systems: All systems reviewed and are unremarkable except as noted below Physical Exam Physical Exam: On examination Lying in bed comfortably Remains hemodynamically stable Chest-clear to auscultate bilaterally Heart-S1-S2, regular Abdomen-benign Extremities-negative for any edema Results & Data Results & Data Vital Signs (Past 12 Hours) Vital Signs Temp Pulse Resp BP Pulse Ox O2 Del Method 12/04/22 08:35 37 C 85 14 120/84 98 Room Air Laboratory Results [facility] 12/04/22 07:32 Creatinine 0.50 L Medications Administered Current Inpatient Medications Acetaminophen (Acetaminophen 500 Mg Tab) 1,000 mg PO Q8H PRN PRN Reason: MILD Pain Scale 1,2,3 & Pre PT Stop: 12/25/22 20:52 Last Admin: 12/03/22 08:41 Dose: 1,000 mg Amoxicillin/Clavulanate Potassium (Amoxicillin/Clavulanate 875 Mg Tab) 1 tab PO BIDM [facility]; Protocol Stop: 12/11/22 16:59 Buspirone HCl (Buspirone 5 Mg Tab) 5 mg PO TID [facility] Stop: 12/25/22 20:59 Last Admin: 12/04/22 07:53 Dose: 5 mg Cyanocobalamin (Cyanocobalamin (B-12) 500 Mcg Tablet) 1,000 mcg PO QAM [facility] Stop: 12/26/22 08:59 Last Admin: 12/04/22 07:53 Dose: 1,000 mcg Duloxetine HCl (Duloxetine Hcl 20 Mg Cap) 40 mg PO QAM [facility] Stop: 12/26/22 08:59 Last Admin: 12/04/22 07:54 Dose: 40 mg Folic Acid (Folic Acid 400 Mcg Tab) 400 mcg PO QAM [facility] Stop: 12/26/22 08:59 Last Admin: 12/04/22 07:55 Dose: 400 mcg Hydroxyzine HCl (Hydroxyzine Hcl 25 Mg Tab) 25 mg PO BID PRN PRN Reason: anxiety Stop: 12/28/22 13:37 Last Admin: 12/03/22 09:31 Dose: 25 mg Promethazine HCl 12.5 mg/ (Sodium Chloride) 50.5 mls @ 202 mls/hr IV Q6H PRN PRN Reason: Nausea &/or Vomiting Stop: 12/25/22 20:52 Sodium Chloride (Nss 1000ml) 1,000 mls @ 80 mls/hr IV .[id number] [facility] Stop: 12/31/22 19:29 Last Admin: 12/04/22 09:55 Dose: Not Given Lactobacillus Acidophilus (Advanced Probiotic 1250 Mg Capsule) 2 cap PO DAILY [facility] Stop: 12/26/22 08:59 Last Admin: 12/04/22 07:54 Dose: 2 cap Lamotrigine (Lamotrigine 25 Mg Tab) 25 mg PO QAM [facility] Stop: 12/26/22 08:59 Last Admin: 12/04/22 07:55 Dose: 25 mg Levetiracetam (Levetiracetam 500 Mg Tab) 500 mg PO BID [facility] Stop: 12/25/22 20:59 Last Admin: 12/04/22 07:55 Dose: 500 mg Levothyroxine Sodium (Levothyroxine Sodium 50 Mcg Tablet) 50 mcg PO [id number] [facility] Stop: 12/29/22 06:29 Last Admin: 12/04/22 06:24 Dose: 50 mcg Lorazepam (Lorazepam 0.5 Mg Tab) 0.5 mg PO BID PRN PRN Reason: Anxiety Stop: 12/29/22 20:18 Last Admin: 12/04/22 07:53 Dose: 0.5 mg Lurasidone HCl (Lurasidone Hcl 40 Mg Tab) 40 mg PO QAM [facility] Stop: 12/26/22 08:59 Last Admin: 12/04/22 07:55 Dose: 40 mg Metoclopramide HCl (Metoclopramide Hcl Inj 5 Mg/Ml 2 Ml Vial) 10 mg IV Q6H PRN PRN Reason: Nausea &/or Vomiting Stop: 12/25/22 20:52 Metoprolol Succinate (Metoprolol Succ 25mg Ext Rel Tab) 25 mg PO QAM JUAN C Stop: 12/26/22 08:59 Last Admin: 12/04/22 09:14 Dose: 25 mg Mirtazapine (Mirtazapine Tab 15 Mg Tab) 15 mg PO HS PRN PRN Reason: Sleep Stop: 12/25/22 20:52 Last Admin: 12/03/22 20:37 Dose: 15 mg Naloxone HCl (Naloxone Hcl 0.4 Mg/1 Ml Vial/Carp) 0.1 mg IV Q5M PRN PRN Reason: Oversedation/respiratory dep Stop: 12/25/22 20:52 Naloxone HCl (Naloxone Hcl 0.4 Mg/1 Ml Vial/Carp) 0.1 mg IV Q5M PRN; Protocol PRN Reason: Oversedation/Resp Depression Stop: 12/10/22 10:22 Ondansetron HCl (Ondansetron Inj 2 Mg/Ml 2 Ml Vial) 4 mg IV Q6H PRN PRN Reason: Nausea &/or Vomiting Stop: 12/25/22 20:52 Ondansetron HCl (Ondansetron 4 Mg Od Tab) 4 mg PO Q6H PRN PRN Reason: Nausea Stop: 12/25/22 20:52 Oxycodone HCl (Oxycodone Hcl Ir 5 Mg Tab (Immediate Release)) 5 mg PO Q4 PRN PRN Reason: Pain Stop: 12/10/22 10:20 Last Admin: 12/04/22 09:14 Dose: 5 mg Pantoprazole Sodium (Pantoprazole 40 Mg Tab) 40 mg PO QAM [facility] Stop: 12/26/22 08:59 Last Admin: 12/04/22 07:54 Dose: 40 mg Potassium Chloride (Potassium Chloride Crtab 20 Meq Tabcr) 20 meq PO QDL JUAN C Stop: 12/26/22 11:29 Last Admin: 12/03/22 08:47 Dose: 20 meq Prazosin HCl (Prazosin Hcl 1 Mg Cap) 2 mg PO HS JUAN C Stop: 12/25/22 20:59 Last Admin: 12/03/22 20:37 Dose: Not Given Pregabalin (Pregabalin 75 Mg Cap) 150 mg PO TID JUAN C Stop: 12/25/22 20:59 Last Admin: 12/04/22 09:14 Dose: 150 mg Ropinirole HCl (Ropinirole Hcl 0.25 Mg Tablet) 0.5 mg PO HS JUAN C Stop: 12/25/22 20:59 Last Admin: 12/03/22 20:37 Dose: 0.5 mg Thiamine HCl (Thiamine Hcl 50 Mg Tablet) 50 mg PO QAM JUAN C Stop: 12/26/22 08:59 Last Admin: 12/04/22 07:55 Dose: 50 mg
--- NOTE | 2022-12-04 11:36 | Orthopedic Progress Note ---
Date of Service December 04, 2022 Assessment & Plan (1) Neurogenic claudication due to lumbar spinal stenosis: Plan: She is reasonable to go home from an orthopedic standpoint we will wait for recommendations from infectious disease regarding long-term antibiotics. She can go home from my perspective as long as home health and antibiotics are arranged. Admission and Anticipated Discharge Date Admission Date: November 25, 2022 Subjective Patient feels her back and leg pain are improved. She is very anxious to go home. Physical Exam Physical Exam: Patient is in bed. She is tearful that she is still in the hospital. She has good strength testing. Results & Data Vital Signs (Past 12 Hours) Vital Signs Temp Pulse Resp BP Pulse Ox O2 Del Method 12/04/22 08:35 37 C 85 14 120/84 98 Room Air
--- NOTE | 2022-12-04 13:17 | Discharge Summary ---
Date of Service December 04, 2022 Admission HPI Per Admitting Provider This is a 52-year-old female known to me that status post revision decompression fusion. She had returned home last week but had difficulty controlling her pain at home. She was taking Dilaudid 2 mg p.o. every 6 hours and this was not able to control her symptoms. She comes to the ER with back and bilateral leg pain. The leg pain has been established and is not new. She denies any motor deficits. She denies any fevers or chills. Admission Exam Per Admitting Provider Physical Exam: GENERAL: Comfortable, slightly anxious, obese, no respiratory distress SKIN: Pallor, warm HEENT: Pale palpebral conjunctivae, no ptosis, dry buccal mucosa NECK : Supple, short neck, no tenderness CHEST : Decreased breath sounds, no tenderness HEART : RRR, no obvious murmurs ABDOMEN: Some distention, nontender BACK : Low back tenderness EXTREMITIES : Minimal LE swelling, no LE tenderness, no other conspicuous deformities noted NEUROLOGIC : Coherent, no facial asymmetry, MMTS BUE 4/5, BLE 3/5 Principal Diagnosis Neurogenic claudication due to lumbar stenosis, status post I@D for lumbar seroma, UTI, anxiety/mood disorder, chronic pain/fibromyalgia Discharge Exam On examination Lying in bed comfortably Remains hemodynamically stable Chest-clear to auscultate bilaterally Heart-S1-S2, regular Abdomen-benign Extremities-negative for any edema Discharge Data Allergies Allergy/AdvReac Type Severity Reaction Status Date / Time No Known Drug Allergies Allergy Verified 11/25/22 19:37 Consultations 11/25/22 17:35 ED Decision to Admit Stat 11/25/22 20:53 Consult Internal Medicine Routine 11/26/22 09:38 Consult Pain Management Routine 11/28/22 08:07 Consult Infectious Diseases Routine 11/29/22 11:28 Consult Urology Routine 11/29/22 17:37 Consult Behavioral Health Liaison Routine Procedures Performed Operation Date: 12/01/22 07:00 Actual Procedures p Incision and Drainage Lumbar Spine(Not Applicable) - Darien Acosta DO Ordered Studies 11/25/22 20:53 CT lumbar spine wo/w con Routine Hospital Course (1) History of back surgery: Complicated UTI Urine culture growing E coli Infectious disease consulted, who is recommending IV Vanco, cefepime for possible SSI infection as below Blood culture - no growth in 24hr We will continue current antibiotic No more symptoms of UTI the patient remains afebrile with an elevation of the white count Will give Augmentin for a total of 7 more days to cover UTI and also back surger y site infection Worsening postop back pain with radiculopathy S/P lumbar decompression fusion surgery revision by Dr. Acosta on 11/17/2022 --Lumbar CT:Status post posterior decompression and fusion of L4, L5 and S1 with transpedicular screws and connecting rods in place. There are no fluid collections about the posterior elements extending from L3-L5 with tiny bubbles of air, concerning for possible infection. Back superficial culture 11/17, coag negative staph -- Appreciate orthopedic spine, pain management input Incision warm/erythematous - currently on broad spectrum antibiotic with vanco, cefepime and flagyl Planning for OR this afternoon for irrigation debridement lumbar spine by Dr. Acosta No sample was sent for Gram stain and culture from the seroma-we will continue antibiotic as per results of culture sensitivity from prior back sample Patient remains afebrile with normal white count We will ask Dr. Acosta about possible infected drain is from the seroma to decide on antibiotic We will get repeat PT and OT evaluation prior to discharge-recommended home Started on intravenous cefazolin and will DC on oral cefdinir to finish a total of 14 days of antibiotic Discussed with the ID on-call Dr. Kendall in [place] and advised to continue antibiotic for 14 days since total and also Get CRP every week for next 2 months to monitor infection/inflammation at the back Anxiety/Mood disorder Continue buspirone, Lamictal d/c prn ativan as pt stated she had a withdrawal seizure from it in past pt requesting psych consult for depression, she wants to go home Hypotension BP usually runs low as per patient Continue IV fluids as needed Monitor BP - improving Hypothyroidism Continue levothyroxine Chronic pain/fibromyalgia Continue current medications Postop blood loss anemia Hb Stable Monitor CBC She will be discharged this afternoon Total Time Total Time Spent Total Time Spent (In Minutes): 45 minutes Discharge Plan Discharge Items Patient Disposition: Home - Home Health Services Reason For Visit: POSTOP PAIN Discharge Diagnosis: Postop seroma Condition on Discharge: Fair Activity: As commented below Non-emergency contact: Primary Care Provider Call non-emergency contact if: you have any medication questions Follow-up/Referrals: Paronish,Carlos J., M.D. [Primary Care Provider] - (Dr Peralta's office is aware of your discharge from the hospital. They will call you with an appointment date.) Diet: Regular Addtl Attending Provider Instructions: ACTIVITY RECOMMENDATIONS: SELF CARE INSTRUCTIONS AFTER THORACIC/LUMBAR FUSIONS 1. You may walk to your tolerance. It is good exercise for your legs and back. Expect some back and intermittent leg aches and pains. 2. You may perform "counter-top" level activities (make a sandwich, alexsander with a project, etc.). 3. No bending or lifting of more than 10 pounds or back twisting of any nature (roll like a log when turning in bed). 4. You may ride in a car for 20-30 minutes at a time. No driving until after your first visit with your doctor. 5. Frequent changes of position and restricting sitting to 30 minutes at a time will help limit the amount of back spasms and stiffness you may experience. 6. You may discontinue the use of ambulatory aids (cane, crutches, etc.) once your strength and confidence allow. 7. You may hearing officer the shower and let water strike your incision when you arrive home at least once daily. Do not take a tub bath, sit in a hot tub or go into a swimming pool until after your first recheck in the office. SPECIAL CARE INSTRUCTIONS: VERY IMPORTANT TO READ AND REVIEW A. Your surgical incision has been closed with a cosmetic suture under the skin that will dissolve in about 6 weeks. In 14 days, you can use a pair of clean scissors and cut the suture that is left outside of the skin at the ends of your incision. 1. The small skin tapes can be removed 7 days after surgery if they have not fallen off by that point. 2. You may keep the wound open to air as much as possible to promote healing after post-op day number 5 unless told otherwise by your doctor. 3. If you think the wound looks like it is becoming infected (redness or worsening drainage) and/or you are experiencing fever, chill or worsening back pain and muscle spasms, contact the office so that we may evaluate you as soon as possible. B. Complications are uncommon, but please contact us if you have any signs or symptoms of: 1. wound infection (fever higher than 102.5 degrees F, redness, separation of wound, drainage, or increasing pain from the incision) 2. blood clots in legs (pain, swelling, redness and warmth in legs) 3. urinary tract infection (fever higher than 102.5 degrees F, burning upon urination or increased frequency of urination) 4. nerve problems (inability to walk on your toes or heels, numbness, loss of bowel or bladder control) 5. any other symptoms that concern you C. Please call the office at if you have any concerns or questions about your operation or recovery. D. No smoking! Smoking drastically decreases the chance of a solid fusion. E. Do not take any anti-inflammatory medications (Indocin, Advil, Motrin, Aspirin, Naprosyn, etc.) as these may inhibit the chance of a solid fusion. Tylenol is okay to take for pain. MANAGING PAIN AFTER SPINAL SURGERY 1. Narcotic medication is intended for short-term use and will be provided for surgical pain. Surgical pain usually lasts for a period of 4-6 weeks. Narcotic medication includes Percocet, Vicodin, Darvocet, Tylenol #3 or Lortab. 2. Longer-term pain is more appropriately treated with non-narcotic medication such as Tylenol ES. 3. Muscle spasm is not appropriately treated with narcotics. Muscle relaxers such as Soma, Flexeril or Skelaxin can be used along with Tylenol ES. 4. Remember that we all live with some "aches and pains". This is not unusual or uncommon after an injury or as we get older. a. Back pain is expected and may include muscle spasms for 4 to 6 weeks after surgery. The pain should gradually improve. If the pain worsens for no apparent reason, please contact the office. b. Intermittent leg pain may also be experienced and should not be concerned about unless it worsens for no apparent reason. If so, please contact the office. 5. We will provide appropriate medication within the normal guidelines of their prescribed use. We will also be very cautious and aware of potential abuse and extended duration of patients' medication needs. a. Pain medications are for your comfort and to assist with sleep and rest so that the tissue can heal. They are not provided in order to return to normal activity and should not be used through the day. To do so or worsening pain at night can result from ongoing tissue damage and development of tolerance to the prescribed medicine. 6. Please allow 2-3 days to process refills. Prescriptions will not be mailed but must be picked up at the office. FOLLOW UP VISIT: Keep your scheduled follow-up appointment. Any questions, please call the office at . 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 Pending Studies at Discharge: No Stand-Alone Forms: My [facility], Smoking Cessation Medications and DC Order Prescriptions: New oxycodone 5 mg tablet 5 mg PO Q4 PRN (Reason: pain) Qty: 30 0RF Continued buspirone 5 mg Tablet 5 mg PO TID cyanocobalamin (vitamin B-12) [Vitamin B-12] 1,000 mcg Tablet Extended Release 1,000 mcg PO QAM thiamine HCl (vitamin B1) [Vitamin B-1] 100 mg Tablet 50 mg PO QAM pantoprazole 40 mg Tablet,Delayed Release (Dr/Ec) 40 mg PO QAM ropinirole 0.5 mg Tablet 0.5 mg PO HS Rx Instructions: administer 1-3 hours before bedtime prazosin 2 mg Capsule 2 mg PO HS levetiracetam 500 mg Tablet 500 mg PO BID lamotrigine 25 mg Tablet 25 mg PO QAM mirtazapine 15 mg Tablet 15 mg PO HS PRN (Reason: Sleep) gabapentin 100 mg Capsule 100 mg PO TID lurasidone 40 mg Tablet 40 mg PO QAM Rx Instructions: must administer with food (at least 350 calories) potassium chloride 20 mEq Tablet Extended Release 20 meq PO HS duloxetine 40 mg Capsule,Delayed Release(Dr/Ec) 40 mg PO QAM metoprolol succinate 25 mg Capsule,Sprinkle,Er 24hr 25 mg PO QAM pregabalin 150 mg capsule 150 mg PO TID Xtampza ER 9 mg cap,sprinkl,ER12hr(DONT CRUSH) 9 mg PO PM levothyroxine [Synthroid] 50 mcg Tablet 50 mcg PO [id number] Rx Instructions: Mon/Wed/Thurs/Sat/Sun Mirena 20 mcg/24 hours (7 yrs) 52 mg Intrauterine Device 20 mcg INTRAUTERINE DIRECTED folic acid 400 mcg Tablet 400 mcg PO QAM Qty: 30 0RF Discontinued hydromorphone [Dilaudid] 2 mg Tablet 2 mg PO Q6 PRN (Reason: pain) Qty: 30 0RF Discharge Orders: Discharge Order (Routine); Ordered 12/04/22 Ordered By: Darien Acosta Admission Data Admit Date/Time: 11/25/22 17:52 Attending Provider: Darien Acosta Admit Provider: Darien Acosta Primary Care Provider: Carlos Peralta Other Providers: Edgardo Joel ; Vladislav Lyle [facility] ; Renata Plasencia ; Cassie Bass ; Darien Acosta ; Shreya Silverio ; Tierra Carvajal ; Herb Hernandez ; Mane Ortega ; Kevon Plasencia I. ; Zeyad Tadeo II ; Amalia Betancourt ; Pineda Schafer ; Tim Gaines ; Mary Nevarez ; Everett Rubio Other Interventions: Discharge Summary Assessment (RN) Last Done: 12/04/22 12:43
[2022-12-04] MEDS: POTASSIUM CHLORIDE CRTAB 20 MEQ TABCR PO SCH (14:08)
[2022-12-04] MEDS ORDERED: AMOXICILLIN/CLAVULANATE 875 MG TAB PO SCH (17:00)
== END 2022-12-04 15:15 | disposition home health service (06) | DRG 948 ==
LOC: ED 15:29 → 3N 17:52